=== PATIENT | female | born 1965 | race Caucasian/White ===

== ENCOUNTER 2019-09-08 08:42 | Outpatient (CLI) | payer OTHER, SELFPAY ==
--- NOTE | ~2019-09-08 | MM_ITS ---
EXAMINATION: MM screening carly BI w sofia HISTORY: Screening mammogram TECHNIQUE: Craniocaudal and mediolateral oblique 3-D tomosynthesis images were obtained and synthetic 2-D images were generated. CAD analysis was submitted and interpreted. COMPARISON: 05/30/2018 diagnostic right digital mammogram 05/29/2018, 04/24/2017 bilateral digital screening mammogram examinations BREAST PARENCHYMAL COMPOSITION: There are scattered areas of fibroglandular density. FINDINGS: There is a biopsy marker on the right and area of microcalcifications; history of prior millie ign right breast biopsy in 2019. There is no evidence of suspicious mass, calcification, or architectural distortion to suggest malig karis in either breast. There has been no suspicious interval change. IMPRESSION: 1. No mammographic evidence of malignancy. 2. Recommend routine screening mammography in one year. BI-RADS Category 2: Benign finding(s). Reviewed, dictated and finalized at location A.
== END 2019-09-08 08:43 | disposition home or self-care (01) ==
LOC: ANHIMG 08:53
PROVIDERS: PCP Nurse Practitioner Adult Health; Visit Provider Nurse Practitioner Adult Health
DX: Z12.31 Encounter for screening mammogram for malignant neoplasm of breast (principal)
CPT/HCPCS: 77063; 77067

== ENCOUNTER 2019-09-09 23:52 | Observation (INO) | payer OTHER, SELFPAY ==
--- NOTE | ~2019-09-09 | CT_ITS ---
EXAMINATION: CTA chest PE abdomen pel DATE: 09/10/2019 02:21 INDICATION: Chest and right flank pain TECHNIQUE: Computed tomography angiography (CTA) of the chest was performed with 100 mL Omnipaque-350 intravenous contrast timed to evaluate the pulmonary arteries. Subsequent postcontrast images of the abdomen and pelvis are obtained. Coronal maximum intensity projection 3D-reconstructions were create d by the technologist. The dose-length product (DLP) was 1045.17 mGy-cm. Automated exposure control a nd iterative reconstruction technique were employed. COMPARISON: None. FINDINGS: CTA CHEST: There is fair opacification of the pulmonary arteries. There are filling defects in subseg mental pulmonary arterial branches of the right lower lobe. Minimal airspace opacities are present in the posterior medial aspect of the right lower lobe. There is a 4 mm nodule of the right lower lobe on image 71. A trace right pleural effusion is noted. There is no pneumothorax. No pathologically enl arged thoracic lymph nodes are identified. The heart size is normal. There is mild thoracic spondylos is. ABDOMEN/PELVIS CT: The liver, spleen, pancreas, gallbladder, and adrenal glands are normal. There is a 10 mm cyst of the right kidney. The left kidney is normal. No pathologically enlarged abdominal or pelvic lymph nodes are identified. There is no free intraperitoneal gas or evidence of bowel obstruct ion. There is mild lumbar spondylosis. IMPRESSION: 1. Subsegmental pulmonary emboli in the right lower lobe. These findings were discussed with Dr. Marva May MD in the Emergency Department at 0 to 49 hours on 09/10/2019 by the [employer] Radiologist . 2. Minimal opacity in the posterior medial aspect of the right lower lobe which could reflect pulmona ry infarction versus atelectasis. 3. No acute abnormality of the abdomen or pelvis. Reviewed, dictated and finalized at location B. IMPRESSION: 1. Subsegmental pulmonary emboli in the right lower lobe. These findings were d iscussed with Dr. Kathy May MD in the Emergency Department at 0 to 49 h ours on 09/10/2019 by the [employer] Radiologist. 2. Minimal opacity in the posterior medial aspect of the right lower lobe which could reflect pulmonary infarction versus atelectasis. 3. No acute abnormality of the abdomen or pelvis.
--- NOTE | ~2019-09-09 | US_ITS ---
EXAMINATION: US venous doppler [facility] DATE: 09/10/2019 14:06 INDICATION: Bilateral lower limb pain, pulmonary embolism TECHNIQUE: Garcia scale images without and with compression and Doppler images of the bilateral lower e xtremity veins were obtained. COMPARISON: None FINDINGS: The right common femoral vein, profunda femoral vein, femoral vein, popliteal vein, peroneal trunk, p osterior tibial veins, and greater saphenous vein are patent. There is thrombosis of the superficial lesser saphenous vein. The left common femoral vein, profunda femoral vein, femoral vein, popliteal vein, peroneal trunk, po sterior tibial veins, and greater saphenous vein are patent. There is thrombosis of the superficial l shabana saphenous vein. IMPRESSION: 1. No evidence of deep venous thrombosis. 2. Bilateral superficial venous thrombosis of the lesser saphenous veins. Reviewed, dictated and finalized at location B.
[2019-09-10] VITALS (10 sets, daily range): BP systolic 113–135; BP diastolic 72–89; PULSE 70–100; RESP 16–18; TEMP 36.4–37.2; O2SAT 95–98; BMI 27.0
--- NOTE | 2019-09-10 | ECHO_ITS ---
Patient Info Name: Renetta Crowell Age: 53 years : 1965 Gender: Female Ht: 67 in Wt: 172 lbs BSA: 1.94 m2 HR: 73 bpm BP: 121 / 89 mmHg Heart Rhythm: Sinus Rhythm Technical Quality: Good Exam Date: 09/10/2019 10:49 AM Exam Location: [facility] Exam Room: 349 Patient Status: Inpatient Admit Date: 09/10/2019 Staff Ordering Physician: Dorcas Mock MD Showroom Salesperson: Katherin Collins RDCS Attending Provider: Aisha Kay DO Exam Type: CA echo doppler color flow Study Info Indications - PE Complete two-dimensional, color flow and Doppler transthoracic echocardiogram is performed. Summary 1. Left ventricular systolic function is normal, estimated at 60-65%. 2. There is no increased left ventricular wall thickness. 3. Left ventricular septal wall motion is abnormal with septal motion related to bundle branch block. 4. There is trace mitral valve regurgitation. 5. There is trace tricuspid valve regurgitation. 6. No pulmonary hypertension, estimated pulmonary arterial systolic pressure is 25 mmHg. Left Ventricle Left ventricular chamber dimension is normal. Left ventricular systolic function is normal, estimated at 60-65%. There is no increased left ventricular wall thickness. Left ventricular septal wall motion is abnormal with septal motion related to bundle branch block. Right Ventricle Right ventricular chamber dimension is normal. Right ventricular systolic function is normal. Left Atria Left atrial chamber dimension is normal. Right Atria Right atrial chamber dimension is normal. Aortic Valve The aortic valve is trileaflet. There is no aortic valve stenosis. There is no aortic valve regurgitation. Pulmonic Valve The pulmonic valve is normal. There is trace pulmonic regurgitation. Mitral Valve The mitral valve has normal leaflets. There is trace mitral valve regurgitation. Tricuspid Valve The tricuspid valve leaflets are normal. There is trace tricuspid valve regurgitation. No pulmonary hypertension, estimated pulmonary arterial systolic pressure is 25 mmHg. Pericardium/Pleural The pericardium appears normal. There is trivial pericardial effusion. Inferior Vena Cava Normal inferior vena cava with >50% collapse upon inspiration consistent with normal right atrial pressure, 5 mmHg. Aorta The aortic root size at the sinus of Valsalva is normal. Left Ventricular Outflow Tract Name Value Normal LVOT 2D LVOT Diameter 2.0 cm LVOT Doppler LVOT Peak Gradient 4 mmHg LVOT Mean Gradient 2 mmHg LVOT VTI 21 cm LVOT VTI/AV VTI Ratio 0.8 LVOT Stroke Volume 67 ml LVOT CO 14.4 l/min LVOT CI 7.4 l/min/m2 Pulmonic Valve Name Value Normal PV Doppler ------
--- NOTE | 2019-09-10 00:41 | ED.BACK ---
HPI - Back Pain/Injury General Chief Complaint: Back Pain/Injury Stated Complaint: right flank pain Time Seen by Provider: 09/10/19 00:22 Source: patient Mode of arrival: ambulatory Limitations: no limitations History of Present Illness HPI Narrative: This patient is a 53 year old female who presents for evaluation of right flank pain starting this afternoon. She is having pain to her right mid back and she states this pain intermittently rates to her right shoulder. She also notes this pain is worse sometimes when she takes a breath. She denies associated nausea, vomiting, cough or sob. She reports she had a fever of 100.2 F at 7 pm but she has not had a fever since. MD elicited complaint: back pain Related Data Home Medications Medication Instructions Recorded Confirmed Nutra Melitonin Sr 3 mg PO HS 09/10/19 09/10/19 Progesterone Triturate 100 mg PO QAM 09/10/19 09/10/19 escitalopram oxalate 10 mg PO HS 09/10/19 09/10/19 estradiol 0.75 mg PO DAILY 09/10/19 09/10/19 progesterone micronized 300 mg PO HS 09/10/19 09/10/19 testosterone 1 pump TOPICAL DAILY 09/10/19 09/10/19 thyroid (pork) [[place] Thyroid] 75 mg PO DAILY 09/10/19 Allergies Allergy/AdvReac Type Severity Reaction Status Date / Time penicillin G Allergy Unknown Verified 03/14/11 15:03 Penicillins Allergy Unknown Verified 06/24/17 14:06 NKFA Allergy Unknown Uncoded 05/08/13 07:24 Review of Systems Review of Systems: All systems reviewed & are unremarkable except as noted in HPI and below Constitutional: Constitutional: Denies chills and Denies fever(s) Respiratory: Respiratory: Denies cough and Denies dyspnea Gastrointestinal: Gastrointestinal: Denies abdominal pain, Denies nausea and Denies vomiting Genitourinary: Genitourinary: Reports nocturia, Denies dysuria and Reports flank pain Musculoskeletal: Musculoskeletal: Reports back pain PMF Past Medical History Medical History (Updated 09/10/19 @ 06:22 by Kathy May MD) Anxiety Vaginal delivery x 2 Surgical History Surgical History (Updated 05/27/19 @ 14:23 by Moriah Maldonado CMA) H/O LEEP Family History Family History (Updated 06/24/17 @ 14:07 by DOCTOR UNKNOWN) Grandparent Family history of malignant neoplasm Family history of Alzheimer's disease Cerebrovascular accident Father Carcinoma of colon Family history of diabetes mellitus in first degree relative Diabetes mellitus Family history of hypercholesterolemia Hypertension Sibling Diabetes mellitus Family history of cardiovascular disease Other Family history of lymphoma Family history of malignant neoplasm of male breast Family history of pancreatic cancer Social History Social History Smoking status: Former smoker Smoking end date: 02/12/12 Alcohol intake: current Exam Narrative: Exam Narrative: GENERAL: Well-appearing, well-nourished, and in no acute distress. HEAD: Normocephalic, atraumatic EYES: PERRLA and EOMI, conjunctiva clear without discharge EARS: TM's clear bilaterally without erythema or dullness NOSE: Nares clear, no rhinorrhea or epistaxis THROAT:Mucous membranes moist, Oropharynx normal without erythema, exudate, peritonsillar swelling or fluctuance NECK: Supple, without lymphadenopathy or mass RESPIRATORY: No respiratory distress, Airway patent, Respirations non-labored, Clear to auscultation without rales, rhonchi or wheeze HEART: Regular rate and rhythm. No murmur heard. Normal peripheral pulses. ABDOMEN: Soft, nontender, nondistended, normal active bowel sounds. No masses. No rebound or guarding, No organomegaly. EXTREMITIES: No edema, normal strength with full range of motion. SKIN: Warm, dry, normal color without rash NEURO: Alert and oriented x3. CN 2-12 grossly intact. No focal deficits. PSYCH: Normal mood and affect. Course Reevaluation(s) Reevaluation #1: I Discussed with patient findings of PE . She states Dr. Gracia has her on
[2019-09-10 00:48] LABS: Basophils Absolute Auto 0.1 K/mm3 (0.0-0.1); Basophils Percent Auto 0.5 % (0.2-1.2); Eosinophils Absolute Auto 0.1 K/mm3 (0-0.3); Eosinophils Percent Auto 0.8 % (0-4.4); Hematocrit 40.1 % (37.0-47.0); Hemoglobin 13.5 g/dL (12.0-15.0); Immature Granulocyte Absolute 0.02 K/mm3 (0.00-0.031); Immature Granulocyte Percent A 0.2 % (0-0.5); Lymphocytes Absolute Auto 1.03 K/mm3 (0.9-3.2); Lymphocytes Percent Auto 10.2 % (18.3-44.2); Mean Corpuscular HGB Conc 33.7 g/dl (32-36); Mean Corpuscular Hemoglobin 30.3 pg (26-34); Mean Corpuscular Volume 89.9 fl (80-100); Mean Platelet Volume 10.5 fl (7.4-10.4); Monocytes Percent Auto 9.8 % (2.6-8.5); Neutrophils Percent Auto 78.5 % (45.5-73.1); Platelet Count Result 255 k/mm3 (150-375); Red Blood Count 4.46 M/mm3 (4.2-5.4); Red Cell Distribution Width 12.1 % (11.5-14.5); White Blood Count 10.1 K/mm3 (4.5-10.0)
[2019-09-10 00:52] LABS: Bacteria Urine Trace /hpf; Mucus Urine Rare /lpf; Squamous Epithelial Cell Urine Moderate /hpf (Few); WBC Urine 51-75 /hpf
[2019-09-10 01:01] LABS: Alanine Aminotransferase 30 U/L (4-35); Albumin Level 4.5 g/dL (3.5-5.1); Alkaline Phosphatase 75 U/L (38-126); Anion Gap 14.2 mmol/L (7-16); Aspartate Amino Transferase 25 U/L (14-36); Bilirubin,Total 0.5 mg/dL (0.2-1.3); Blood Urea Nitrogen 32 mg/dL (7-17); Calcium 9.5 mg/dL (8.4-10.2); Carbon Dioxide 22 mmol/L (22-30); Chloride 102 mmol/L (98-107); Estimated CRCL calculation 57 ml/min; Estimated Glomerular Filt Rate 58; Glucose 122 mg/dL (65-105); Lipase 68 U/L (23-300); Potassium 4.2 mmol/L (3.4-5.0); Sodium 134 mmol/L (137-145)
[2019-09-10 01:09] LABS: Prothrombin Time 12.5 Seconds (11.1-14.7)
[2019-09-10 01:10] LABS: Partial Thromboplastin Time 29.2 SECONDS (22.3-36.8)
[2019-09-10 01:10] LABS: Appearance Urine Clear (Clear); Color Urine Yellow (Yellow); Leukocyte Esterase Ur 2+ LEU/UL (Negative); Nitrate Urine Negative (Negative)
[2019-09-10 01:11] LABS: Protein Urine Trace mg/dL (Negative); Urobilinogen Urine 0.2 mg/dL (<2.0)
[2019-09-10 01:12] LABS: Blood Urine Negative (Negative); Ketones Urine 1+ mg/dL (Negative)
[2019-09-10 01:13] LABS: Add Urine Microscopic? YES; Bilirubin Urine 1+ (Negative); Glucose Urine UA Negative (Negative)
[2019-09-10 01:13] LABS: D Dimer 1.18 ug/mL (<0.48)
[2019-09-10] MEDS: SODIUM CHLORIDE 0.9% IV 1,000 ML 999 ML IV CONT (01:28)
--- NOTE | 2019-09-10 03:01 | ECG_ITS ---
Measurements Intervals [place] Rate: 76 P: 32 NV: 171 QRS: -17 QRSD: 124 T: 64 QT: 402 QTc: 453 Interpretive Statements SINUS RHYTHM LEFT BUNDLE BRANCH BLOCK ABNORMAL ECG Electronically Signed On 09-10-2019 7:22:02 CDT by Austen Og D.O.
[2019-09-10] MEDS: ENOXAPARIN 80 MG/0.8 ML SYRINGE SUB-Q (03:20)
[2019-09-10 03:51] LABS: Basophils Percent Auto 0.4 % (0.2-1.2); Eosinophils Absolute Auto 0.1 K/mm3 (0-0.3); Eosinophils Percent Auto 0.6 % (0-4.4); Hematocrit 37.8 % (37.0-47.0); Hemoglobin 12.6 g/dL (12.0-15.0); Immature Granulocyte Absolute 0.03 K/mm3 (0.00-0.031); Immature Granulocyte Percent A 0.3 % (0-0.5); Lymphocytes Absolute Auto 1.02 K/mm3 (0.9-3.2); Lymphocytes Percent Auto 10.8 % (18.3-44.2); Mean Corpuscular HGB Conc 33.3 g/dl (32-36); Mean Corpuscular Hemoglobin 30.1 pg (26-34); Mean Corpuscular Volume 90.2 fl (80-100); Mean Platelet Volume 10.3 fl (7.4-10.4); Monocytes Absolute Auto 0.9 K/mm3 (0.1-0.6); Monocytes Percent Auto 9.8 % (2.6-8.5); Neutrophils Absolute Auto 7.4 K/mm3 (1.3-6.7); Neutrophils Percent Auto 78.1 % (45.5-73.1); Platelet Count Result 237 k/mm3 (150-375); Red Blood Count 4.19 M/mm3 (4.2-5.4); Red Cell Distribution Width 12.3 % (11.5-14.5); White Blood Count 9.5 K/mm3 (4.5-10.0)
[2019-09-10 04:03] LABS: Alanine Aminotransferase 25 U/L (4-35); Alkaline Phosphatase 68 U/L (38-126); Anion Gap 11.5 mmol/L (7-16); Aspartate Amino Transferase 22 U/L (14-36); Bilirubin,Total 0.5 mg/dL (0.2-1.3); Blood Urea Nitrogen 27 mg/dL (7-17); Calcium 8.7 mg/dL (8.4-10.2); Carbon Dioxide 22 mmol/L (22-30); Chloride 104 mmol/L (98-107); Estimated CRCL calculation 57 ml/min; Estimated Glomerular Filt Rate 58; Glucose 111 mg/dL (65-105); Potassium 4.5 mmol/L (3.4-5.0); Sodium 133 mmol/L (137-145)
--- NOTE | 2019-09-10 06:46 | ADMGEN ---
This patient, Renetta Crowell, was admitted to Medical Room 349-01. Patient/family oriented to hospital policies and general routines including ID bracelet, bed and alarms, visiting hours, pain management, procedures, bathroom and other care routines, personal items, smoking policy, room service/diet, and visiting hours. Valuables list has been completed. Information on how to activate the Rapid Response Team has been discussed. Patient/Family are encouraged to report perceived risks to care and to ask questions if they do not understand what they are told or what they should do.
[2019-09-10] MEDS: APIXABAN 5 MG TABLET 10 MG PO (09:15)
--- NOTE | 2019-09-10 14:55 | PM.SD ---
Same Day Admit/Disch: HPI History of Present Illness Chief complaint: Pulmonary emboli Narrative: Renetta Crowell is a 53 year old female Patient is on several hormone therapy for postmaunpose this will put her at high risk for pulmonary emboli and deep venous thrombosis. patient went on road trip to [place] on her bed back see does straight back from the [place] to [place], [place] patient presented emergency department with a complaint of right-sided chest pain with shortness of breath, CTA of the chest showed patient is a pulmonary emboli and patient was started on Eliquis from urgency department, currently patient states feeling better pain is also better, denies any chest pain shortness of breath palpitation fever or chills Patient will take Eliquis 10mg twice a day for 1 week thereafter 5mg twice a day. patient to follow up with her pimary care as soon as possible, if any symptoms get worsen to call 911 and go to nearest ER. Patient is on several hormone therapy for postmaunpose this will put her at high risk for pulmonary emboli and deep venous thrombosis. [facility] Past Medical History Medical History (Updated 09/10/19 @ 06:22 by Kathy May MD) Anxiety Vaginal delivery x 2 Surgical History Surgical History (Updated 09/17/19 @ 13:43 by Moriah Maldonado CMA) H/O LEEP [place] teeth removed Family History Family History (Updated 06/24/17 @ 14:07 by DOCTOR UNKNOWN) Grandparent Family history of malignant neoplasm Family history of Alzheimer's disease Cerebrovascular accident Father Carcinoma of colon Family history of diabetes mellitus in first degree relative Diabetes mellitus Family history of hypercholesterolemia Hypertension Sibling Diabetes mellitus Family history of cardiovascular disease Other Family history of lymphoma Family history of malignant neoplasm of male breast Family history of pancreatic cancer Social History Social History Smoking status: Former smoker Smoking end date: 02/12/12 Alcohol intake: never Substance use: never Gender identity (if verbalized by the patient): Female Spiritual care concerns: No Same Day Admit/Disch: Med Pre-admit Medications Home Medications Medication Instructions Recorded Confirmed Type Nutra Melitonin Sr 3 mg PO HS 09/10/19 09/10/19 History Progesterone Triturate 100 mg PO QAM 09/10/19 09/10/19 History apixaban 5 mg PO BID #60 tablet 09/10/19 Rx apixaban [Eliquis] 10 mg PO Q12HR #74 tablet 09/10/19 Rx escitalopram oxalate 10 mg PO HS 09/10/19 09/10/19 History estradiol 0.75 mg PO DAILY 09/10/19 09/10/19 History progesterone micronized 300 mg PO HS 09/10/19 09/10/19 History testosterone 1 pump TOPICAL DAILY 09/10/19 09/10/19 History Exam Const: General: comfortable and no acute distress HENMT: General nose exam: Normal nares present Mouth: Yes moist mucous membranes Eyes: General: appearance normal, both eyes and all related structures Sclera: sclerae normal Neck: Neck: supple Resp: Other: bilateral fair air entry with rhonchi Cardio: Rate: regular rate Rhythm: regular rhythm GI: Auscultation: normal bowel sounds Skin: General skin exam: normal color Neuro: Speech: normal speech Sensory Exam: normal sensation Extrem: Other: bilateral lower extremity no edema no cord fell Psych: Mental Status: mental status grossly normal Affect: normal affect DS: Data Data Completed and Pending Labs on day of discharge: Labs from last 24 hours 09/10/19 09/10/19 09/10/19 03:44 03:44 00:41 WBC 9.5 RBC 4.19 L Hgb 12.6 Hct 37.8 MCV 90.2 MCH 30.1 MCHC 33.3 RDW 12.3 Plt Count 237 MPV 10.3 Immature Gran % (Auto) 0.3 Neut % (Auto) 78.1 H Lymph % (Auto) 10.8 L [place] % (Auto) 9.8 H Eos % (Auto) 0.6 Baso % (Auto) 0.4 Lymph # (Auto) 1.02 [place] # (Auto) 0.9 H Eos # (Auto) 0.1 Baso # (Auto) 0.0 Abs Immat Gran (auto) 0.03 Abso
--- NOTE | 2019-09-10 18:54 | PC.NURSE ---
Copy of the ECHO was sent with the pt at discharge as per Dr. Mock.
== END 2019-09-10 18:55 | disposition home or self-care (01) ==
LOC: ANHED 09-10 03:31 → ANH3MED 09-10 06:22
PROVIDERS: Admitting Provider Internal Medicine; Emergency Provider General Practice; PCP Nurse Practitioner Adult Health; Visit Provider Family Medicine
DX: I26.99 Other pulmonary embolism without acute cor pulmonale (principal); I82.813 Embolism and thrombosis of superficial veins of lower extremities, bilateral; Z87.891 Personal history of nicotine dependence; Z79.899 Other long term (current) drug therapy; Z79.01 Long term (current) use of anticoagulants
CPT/HCPCS: 36415; 71275; 74177; 80053; 81001; 81025; 83690; 85025; 85380; 85610; 85730; 87086; 87088; 93005; 93306; 93970; 96361; 96365; 96372; 96376; 99285; A9270; G0378; J0131; J1650; J7030; Q9967

== ENCOUNTER 2019-11-23 13:47 | Outpatient (CLI) | payer OTHER, SELFPAY ==
--- NOTE | ~2019-11-23 | US_ITS ---
EXAMINATION: US venous doppler [facility] DATE: 11/23/2019 14:37 INDICATION: Acute deep vein thrombosis. TECHNIQUE: Grayscale ultrasound images without and with compression and Doppler ultrasound images of the bilateral lower extremity veins were obtained. COMPARISON: Ultrasound 09/10/2019 FINDINGS: The visualized portions of right common femoral vein, profunda (deep) femoral vein, femoral vein, pop liteal vein, peroneal veins, posterior tibial veins, and greater saphenous vein outflow are patent. T here is thrombus in right lesser saphenous vein. The visualized portions of left common femoral vein, profunda femoral vein, femoral vein, popliteal v ein, peroneal veins, posterior tibial veins, and greater saphenous vein outflow are patent. There is thrombus in left lesser saphenous vein. IMPRESSION: 1. No deep venous thrombosis. 2. Superficial vein thrombosis involving the bilateral lesser saphenous veins. Reviewed, dictated and finalized at location A.
== END 2019-11-23 13:48 | disposition home or self-care (01) ==
PROVIDERS: PCP Nurse Practitioner Adult Health; Visit Provider Internal Medicine Hematology & Oncology
DX: I82.4Y3 Acute embolism and thrombosis of unspecified deep veins of proximal lower extremity, bilateral (principal); I82.813 Embolism and thrombosis of superficial veins of lower extremities, bilateral
CPT/HCPCS: 93970

== ENCOUNTER 2019-12-07 14:20 | Outpatient (CLI) | payer OTHER, SELFPAY ==
[2019-12-09 16:40] LABS: Anti Cardio Antibody IgM <12 MPL (<=12); Anti Cardiolipin Antibody IgA <11 APL (<=11); Anti Cardiolipin Antibody IgG <14 GPL (<=14)
[2019-12-09 20:40] LABS: Antithrombin III Activity 71 % normal (80-135)
[2019-12-10 04:00] LABS: Lupus dRVVT 1:1 Mix Interpreta Not Indicated; Lupus dRVVT Screen 34 sec (<=45); PTT-LA Screen 31 sec (<=40)
[2019-12-10 13:02] LABS: Homocysteine 9.9 umol/L (<10.4)
== END 2019-12-07 14:21 | disposition home or self-care (01) ==
PROVIDERS: PCP Nurse Practitioner Adult Health; Visit Provider Internal Medicine Hematology & Oncology
DX: I82.4Y3 Acute embolism and thrombosis of unspecified deep veins of proximal lower extremity, bilateral (principal)
CPT/HCPCS: 36415; 83090; 85300; 85303; 85306; 85613; 85730; 86146; 86147

== ENCOUNTER 2020-03-07 15:06 | Outpatient (CLI) | payer OTHER, SELFPAY ==
[2020-03-09 17:33] LABS: APC Ratio 4.3 ratio (>=2.1)
[2020-03-10 05:09] LABS: Antithrombin III Activity 80 % normal (80-135)
== END 2020-03-07 15:07 | disposition home or self-care (01) ==
PROVIDERS: Family Provider Obstetrics & Gynecology; PCP Nurse Practitioner Adult Health; Visit Provider Internal Medicine Hematology & Oncology
DX: I82.4Y3 Acute embolism and thrombosis of unspecified deep veins of proximal lower extremity, bilateral (principal)
CPT/HCPCS: 36415; 85300; 85307

== ENCOUNTER → 2020-08-23 06:43 | Outpatient (CLI) | payer OTHER, SELFPAY ==
[2020-08-23 17:38] LABS: SARS-CoV-2 RNA PCR Negative
== END ==
PROVIDERS: PCP Nurse Practitioner Adult Health; Visit Provider Nurse Practitioner Adult Health
DX: R05 Cough (principal); Z20.822 Contact with and (suspected) exposure to COVID-19
CPT/HCPCS: C9803; U0003; U0005

== ENCOUNTER 2020-09-09 07:19 | Outpatient (CLI) | payer OTHER, SELFPAY ==
--- NOTE | ~2020-09-09 | MM_ITS ---
EXAMINATION: MM screening carly BI w sofia HISTORY: . TECHNIQUE: Craniocaudal and mediolateral oblique 3-D tomosynthesis images were obtained and synthetic 2-D images were generated. CAD analysis was submitted and interpreted. COMPARISON: 09/08/2019 bilateral digital screening mammogram 05/30/2018 diagnostic right digital mammogram /09/2018, 04/24/2017 bilateral digital screening mammogram examinations BREAST PARENCHYMAL COMPOSITION: There are scattered areas of fibroglandular density. FINDINGS: There is a biopsy marker in the outer mid right breast with some residual punctate microcal cifications; history of prior benign right breast biopsy. There is no evidence of suspicious mass, ca lcification, or architectural distortion to suggest malignancy in either breast. There has been no anderson spicious interval change. IMPRESSION: 1. No mammographic evidence of malignancy. 2. Recommend routine screening mammography in one year. BI-RADS Category 2: Benign finding(s). Reviewed, dictated and finalized at location A.
== END 2020-09-09 07:20 | disposition home or self-care (01) ==
LOC: ANHIMG 07:24
PROVIDERS: PCP Nurse Practitioner Adult Health; Visit Provider Obstetrics & Gynecology
DX: Z12.31 Encounter for screening mammogram for malignant neoplasm of breast (principal)
CPT/HCPCS: 77063; 77067

== ENCOUNTER 2020-12-13 08:00 | Outpatient (RCR) | payer OTHER, SELFPAY ==
--- NOTE | 2020-11-01 14:55 | PTOPEVAL ---
INITIAL PHYSICAL THERAPY EVALUATION and PLAN OF CARE Thank you for referring Renetta Crowell to [facility].? Renetta is scheduled to be seen for physical therapy? once every 2 wks for 4 weeks. Please review, sign, date and return this plan of care NICOLE. I agree with and certify that the following plan of care is medically necessary. Referring Physician Date Admitting Provider: Attending Provider: Trip Hernandez MD Referring Provider: *PT Outpatient Evaluation Start: 11/01/20 13:38 Freq: Status: Active Protocol: Document 11/01/20 13:35 CORETTA (Rec: 11/01/20 14:55 CORETTA [id number]) Therapy Assessment Status Assessment Status Assessment Status Evaluation Outpatient Past Medical History Past Medical History Source of Past Medical History Recalled from Previous Visit, Confirmed with Patient/Family Neurological History Hx Migraine Yes: decreasing in frequency Cardiovascular History Hx Cardiac Disorders No Significant History Respiratory History Hx Respiratory Disorders No Significant History Gastrointestinal History Hx Diverticulitis Yes Hx Polyps Yes Genitourinary History Hx Genitourinary Disorders No Significant History Musculoskeletal History Hx Arthritis Yes Hx Osteoporosis Yes Endocrine History Hx Hypothyroidism Yes Integumentary History Hx Skin Disorders No Significant History Reproductive History Hx Other Reproductive Disorders Yes: Leep x2 Psychosocial History Hx Anxiety Yes Pain History Has Past Pain Affected Your Daily Life Yes Anesthesia History Hx Anesthesia Reactions No Significant History Evaluation Information Problem Diagnosis cystocele, rectocele Onset May 2020 Subjective Information Renetta reports that she was Query Text:As Reported By Patient/ taking fiber pills, probiotics Family , etc - did have some blood in stools - did back off on - but still did have blood in stool - saw [facility]ER and then GI MD . [employer] FEEDER had told her that her bladder had dropped - in the past - to do Kegels. Recent [employer]T [employer] FEEDER visit - Renetta was advised to come to PT to make sure doing exercises correctly. Not feeling any pressure at this time. With BM - was getting cramping - L lower back region, gas retension - but not now. Diagnostic Te
--- NOTE | 2020-12-13 08:47 | PTOPEVAL ---
PHYSICAL THERAPY DISCHARGE SUMMARY Thank you for referring Renetta Crowell to [facility].? Renetta was seen for 3 visits. She has met all goals set. She is to continue with her HEP on a regular basis. D/C from PT to HEP. I agree with Renetta's discharge from PT. Referring Physician Date Admitting Provider: Attending Provider: Trip Hernandez MD Referring Provider: Therapy Assessment Status Assessment Status Assessment Status Discharge Evaluation Information Problem Diagnosis cystocele, rectocele Subjective Information Renetta reports that she is Query Text:As Reported By Patient/ doing well with exercises. No Family difficulties with urination or defecation. No increase with perineal discomfort. Pain Assessment Timing of Pain Assessment Timing of Pain Assessment Assessment Self Report Self Report Pain Level 0 Pelvic Health Evaluation Pelvic Floor Assessment Sustained Levator Ani Strength 4/5 Quick Levator Ani Contraction in 15 9 Seconds Pelvic Health Therapy Pelvic Health Exercise Isolated Levator Ani Contraction sitting 65 [place] ball 10 ct Query Text:Position, Hold/Relaxation hold/relax 5 reps Time, Repetitions Quick Contractions on [place] ball testing - 9 reps Query Text:Position, Repetitions Therapeutic Ball side/side, front/back, CW/CCW Query Text:Movement Direction, 15 reps ea Repetitions Sit to Stand 6 quick contractions prior to Query Text:Deep Breaths, Quick standing - reviewed Contractions, Repetitions Elevator Techniques [address] hold x5;3 fls Query Text:Repetitions, Number of going down x 5;variable x 5 Steps Going Up, Number of Steps Going reps on ball Down Resistive 'Shh' Technique long, soft x 5 reps;quick, Query Text:Quick, Hard, Long, Soft, hard x 5 reps - done on [place] Number of Repetitions ball Response to Exercise Increased Strength Endurance Excellent Exercise Comments reviewed importance of continuing with HEP on a regular basis to perform pelvic floor contraction prior to lifting, pushing, pulling, etc Rehab Teaching Rehab Teaching Teaching Topic Rehab Teaching Topic Components Exercise,Home Program As Pertains To Technique Recipient Patient Learning Preferences Audio,Demonstration,Discussion ,One-on-One Instruction,Visual ,Written Barriers to Learning None Readiness to Learn
== END 2020-12-13 15:40 | disposition home or self-care (01) ==
LOC: ANHPT 08:00
PROVIDERS: PCP Nurse Practitioner Adult Health; Visit Provider Obstetrics & Gynecology
DX: N81.10 Cystocele, unspecified (principal); N81.6 Rectocele
CPT/HCPCS: 97110; 97161

== ENCOUNTER 2021-01-30 12:36 | Outpatient (CLI) | payer OTHER, SELFPAY ==
--- NOTE | ~2021-01-30 | US_ITS ---
EXAMINATION: US pelvic complete w TV DATE: 01/30/2021 13:22 INDICATION: Uterine fibroids Comparison:Ultrasound dated 11/08/2017 TECHNIQUE: Multiple transabdominal and endovaginal sonographic images of the pelvis performed. FINDINGS: The uterus measures 7.7 x 3.2 x 4.1 cm. There is a uterine fibroid measuring 1.1 x 1.1 x 1. 3 cm cm. The endometrial complex measures 3 mm. The right ovary measures 1.8 x 1.5 x 1 cm and the left ovary measures 1.8 x 1.1 x 1.2 cm. There are small follicles in each ovary. Normal doppler signal in both ovaries. There is no free fluid in the pelvis. There are no abnormal masses seen on either side. IMPRESSION: 1. Uterine fibroid measuring 1.3 cm maximum dimension. Reviewed, dictated and finalized at location A. ADVISOR
== END 2021-01-30 12:37 | disposition home or self-care (01) ==
LOC: ANHIMG 12:40
PROVIDERS: PCP Nurse Practitioner Adult Health; Visit Provider Obstetrics & Gynecology Gynecology
DX: D25.9 Leiomyoma of uterus, unspecified (principal); N95.9 Unspecified menopausal and perimenopausal disorder
CPT/HCPCS: 76830; 76856

== ENCOUNTER 2021-10-25 08:12 | Outpatient (CLI) | payer OTHER, SELFPAY ==
--- NOTE | ~2021-10-25 | MM_ITS ---
EXAMINATION: MM screening carly BI w sofia HISTORY: Screening mammogram TECHNIQUE: Craniocaudal and mediolateral oblique 3-D tomosynthesis images were obtained and synthetic 2-D images were generated. CAD analysis was submitted and interpreted. COMPARISON: 09/09/2020, 09/08/2019 bilateral screening mammogram examination BREAST PARENCHYMAL COMPOSITION: There are scattered areas of fibroglandular density. FINDINGS: There is a biopsy marker in the outer mid right breast, with some adjacent punctate microca lcifications, relatively stable in appearance since 09/09/2020; history of prior benign right breast b iopsy. There is no evidence of suspicious mass, calcification, or architectural distortion to suggest malignancy in either breast. There has been no suspicious interval change. IMPRESSION: 1. No mammographic evidence of malignancy. 2. Recommend routine screening mammography in one year. BI-RADS Category 2: Benign finding(s). Reviewed, dictated and finalized at location A.
== END 2021-10-25 08:13 | disposition home or self-care (01) ==
PROVIDERS: PCP Nurse Practitioner Adult Health; Referring Provider Obstetrics & Gynecology; Visit Provider Nurse Practitioner Adult Health
DX: Z12.31 Encounter for screening mammogram for malignant neoplasm of breast (principal)
CPT/HCPCS: 77063; 77067

== ENCOUNTER 2021-12-12 15:08 | Outpatient (CLI) | payer OTHER, SELFPAY ==
--- NOTE | ~2021-12-12 | DEXA_ITS ---
Bone Density Report Name: JESSI TURNER Age: 56 Sex: Female Ethnicity: White Date of : 1965 Indication: postmenopausal; screening for osteoporosis; parental hip fracture; height loss; inflammatory bowel disease; Referring Provider: JEFERSON SANTIZO Study: Bone densitometry was performed. Exam Date: December 12, 2021 Accession number: [id number] Bone Density: Region BMD T-score Z-score Classification AP Spine(L1-L4) 0.855 -1.7 -0.7 Osteopenia Femoral Neck (Left) 0.696 -1.4 -0.3 Osteopenia Total Hip (Left) 0.863 -0.6 0.0 Normal Femoral Neck (Right) 0.705 -1.3 -0.2 Osteopenia Total Hip (Right) 0.902 -0.3 0.4 Normal Total Hip Mean 0.883 -0.5 0.2 Normal World Health Organization criteria for BMD impression classify patients as: Normal (T-score at or above -1.0), Osteopenia (T-score between -1.0 and -2.5), or Osteoporosis (T-score at or below -2.5). 10-year Fracture Risk(1): Major Osteoporotic Fracture 13% Hip Fracture 0.5% Reported Risk Factors: [place] (), Neck BMD=0.696, BMI=29.2, parental fracture (1) FRAX(R) Version 3.08. Fracture probability calculated for an untreated patient. Fracture probability may be lower if the patient has received treatment. Clinical Information Provided by Patient: Parent has had a hip fracture Has used the following medications: HRT (i.e. estrogen/hormone therapy), Vitamin D, Calcium Has the following medical conditions: Inflammatory bowel diseases Patient maximum height was 68 Menopause Age: 50 No regular weight bearing exercise Does not regularly consume dairy products Drinks caffeinated beverages Onset of menses at age 12 Number of children 2 Impression: The patient has low bone mass, based on the Total Spine T-score. The patient has an estimated ten-year risk of hip fracture of 0.5% and an estimated ten-year risk of major fracture of 13%, based on the WHO FRAX algorithm. The patient has risk factors, including: parental hip fracture. Discussion: BONE DENSITY IS LOW AT ONE OR MORE SKELETAL SITES. This patient's lowest T-score is low at one or more skeletal sites. It meets the World Health Organization's (WHO) criteria for ?low bone mass? (T-score between -1.0 and -2.5). The patient's 10-year risk of fracture as calculated by FRAX is less than the threshold where pharmacological therapy is recommended by the National Osteoporosis Foundation (NOF). However, all treatment decisions require clinical judgment and consideration of individual patient factors, including patient preferences, comorbidities, previous drug use, risk factors not captured in the FRAX model (e.g., frailty, falls, vitamin D deficiency, increased bone turnover, interval significant decline in bone density) and possible under or overestimation of fracture risk by FRAX
== END 2021-12-12 15:09 | disposition home or self-care (01) ==
PROVIDERS: PCP Nurse Practitioner Adult Health; Visit Provider Obstetrics & Gynecology
DX: Z78.0 Asymptomatic menopausal state (principal); M85.88 Other specified disorders of bone density and structure, other site; M85.852 Other specified disorders of bone density and structure, left thigh; M85.851 Other specified disorders of bone density and structure, right thigh
CPT/HCPCS: 77080

== ENCOUNTER 2022-10-21 16:36 | Emergency (ER) | payer OTHER, SELFPAY ==
[2022-10-21 17:13] VITALS: BP 123/70; PULSE 71; RESP 16; TEMP 37.1; O2SAT 99
--- NOTE | 2022-10-21 18:28 | ED.SKABFB ---
HPI - Skin/Abscess/Foreign Bdy General Chief complaint: Skin/Abscess/Foreign Body Stated complaint: Neck and Chest Rash Time Seen by Provider: 10/21/22 18:20 Source: patient and RN notes reviewed Mode of arrival: ambulatory Limitations: no limitations History of Present Illness HPI narrative: Patient presents today with a rash to her chest and bilateral shoulders. She had a CT a pill or fall from a tree onto her neck and rolling to her shirt on to her chest yesterday. This has since caused a severely pruritic rash. She has tried topical and oral Benadryl as well as ice packs without much relief. She also tried a steroid cream at home. Related Data Home Medications Medication Instructions Recorded Confirmed Progesterone Triturate 100 mg PO QAM 09/10/19 11/20/21 escitalopram oxalate 10 mg tablet 10 mg PO HS 09/10/19 11/20/21 progesterone micronized 100 mg 300 mg PO HS 09/10/19 11/20/21 capsule testosterone 30 mg/actuation (1.5 1 pump topical DAILY 09/10/19 11/20/21 mL) transderm solution metered pump aspirin 81 mg tablet,delayed 81 mg PO DAILY 09/27/20 11/20/21 release thyroid (pork) 30 mg tablet (MANAGER TECHNICAL SUPPORT 30 mg PO DAILY 09/27/20 11/20/21 Thyroid) calcium carbonate 600 mg-vitamin cap PO 10/05/20 11/20/21 D3 12.5 mcg (500 unit) capsule (Calcium 600 with Vitamin D3) garlic 1,000 mg capsule 1,000 mg PO DAILY 10/05/20 11/20/21 lisinopril 2.5 mg tablet mg 10/21/22 metoprolol succinate 25 mg mg PO 10/21/22 tablet,extended release 24 hr rosuvastatin 20 mg tablet mg 10/21/22 Allergies Allergy/AdvReac Type Severity Reaction Status Date / Time Penicillins Allergy Intermediate Unknown Verified 10/21/22 18:01 Review of Systems Review of Systems: CONSTITUTIONAL: Denies body aches, fever, chills, or sweats. EYES: Denies visual changes, redness, or discharge. ENT: Denies rhinorrhea, congestion, sore throat, or otalgia. CARDIOVASCULAR: Denies chest pain, palpitations, or edema. RESPIRATORY: Denies cough or dyspnea. GASTROINTESTINAL: Denies abdominal pain, nausea, vomiting, or diarrhea. GENITOURINARY: Denies dysuria or hematuria. SKIN: + pruritic rash MUSCULOSKELETAL: Denies back pain, joint pain, or myalgia. NEUROLOGIC: Denies headache, numbness, tingling, or weakness. PSYCH: Denies depression or anxiety. PMFSH Past Medical History Medical History Anxiety History of pulmonary embolism Vaginal delivery x 2 Surgical History Surgical History H/O LEEP [place] teeth removed Family History Family History Grandparent Family history of malignant neoplasm Family history of Alzheimer's disease Cerebrovascular accident Father Carcinoma of colon Family history of diabetes mellitus in first degree relative Diabetes mellitus Family history of hypercholesterolemia Hypertension Sibling Diabetes mellitus Family history of cardiovascular disease Other Family history of lymphoma Family history of malignant neoplasm of male breast Family history of pancreatic cancer Social History Social History Smoking status: Former smoker Smoking end date: 02/12/12 Alcohol intake: never Substance use: never Gender identity (if verbalized by the patient): Female Spiritual care concerns: No Comments At time of signature, I have reviewed and agree with nursing past medical, surgical, social and family history unless otherwise noted. Please see nursing chart for further information. There is no relevant family history pertinent to the presenting complaint Exam Narrative: GENERAL: Well-appearing, well-nourished, and in no acute distress. HEAD: Normocephalic, atraumatic. EYES: EOMI. No redness or drainage. Conjunctivae normal. ENT: Mucous membranes pin
== END 2022-10-21 18:36 | disposition home or self-care (01) ==
PROVIDERS: Emergency Provider Nurse Practitioner; PCP Internal Medicine
DX: L24.89 Irritant contact dermatitis due to other agents (principal); F41.9 Anxiety disorder, unspecified
CPT/HCPCS: 99213; G0463

== ENCOUNTER 2022-10-26 13:11 | Outpatient (CLI) | payer OTHER, SELFPAY ==
--- NOTE | ~2022-10-26 | MM_ITS ---
EXAMINATION: MM screening carly BI w sofia HISTORY: Screening mammogram TECHNIQUE: Craniocaudal and mediolateral oblique 3-D tomosynthesis images were obtained and synthetic 2-D images were generated. CAD analysis was submitted and interpreted. COMPARISON: 10/25/2021, 09/09/2020, 09/08/2019 bilateral screening mammogram examinations BREAST PARENCHYMAL COMPOSITION: There are scattered areas of fibroglandular density. FINDINGS: Biopsy marker on the right with adjacent subtle punctate microcalcifications.; history of p rior benign right breast biopsy. There is no evidence of suspicious mass, calcification, or net application architect ural distortion to suggest malignancy in either breast. There has been no suspicious interval change. IMPRESSION: 1. No mammographic evidence of malignancy. 2. Recommend routine screening mammography in one year. BI-RADS Category 2: Benign finding(s). Reviewed, dictated and finalized at location A.
== END 2022-10-26 13:12 | disposition home or self-care (01) ==
LOC: CHSIMG 13:12
PROVIDERS: PCP Internal Medicine; Visit Provider Obstetrics & Gynecology
DX: Z12.31 Encounter for screening mammogram for malignant neoplasm of breast (principal)
CPT/HCPCS: 77063; 77067

== ENCOUNTER 2023-11-08 14:34 | Outpatient (CLI) | payer OTHER, SELFPAY ==
--- NOTE | ~2023-11-08 | MM_ITS ---
EXAMINATION: MM screening carly BI w sofia HISTORY: Screening TECHNIQUE: Craniocaudal and mediolateral oblique 3-D tomosynthesis images were obtained and synthetic 2-D images were generated. CAD analysis was submitted and interpreted. COMPARISON: Comparison to multiple prior studies sequentially, with oldest reviewed study dated 09/2018. BREAST PARENCHYMAL COMPOSITION: Not dense: There are scattered areas of fibroglandular density. FINDINGS: There is no evidence of suspicious mass, calcification, or architectural distortion to sugg est malignancy in either breast. There has been no suspicious interval change. IMPRESSION: 1. No mammographic evidence of malignancy. 2. Recommend routine screening mammography in one year. BI-RADS Category 1: Negative Reviewed, dictated and finalized at location B.
== END 2023-11-08 14:35 | disposition home or self-care (01) ==
LOC: ANHIMG 14:57
PROVIDERS: PCP Internal Medicine; Referring Provider Obstetrics & Gynecology Gynecology; Visit Provider Obstetrics & Gynecology
DX: Z12.31 Encounter for screening mammogram for malignant neoplasm of breast (principal)
CPT/HCPCS: 77063; 77067

== ENCOUNTER 2024-01-16 13:09 | Outpatient (CLI) | payer OTHER, SELFPAY | END 2024-01-16 13:10 | disposition home or self-care (01) | LOC: CHSIMG 13:10 | PROVIDERS: PCP Internal Medicine; Visit Provider Nurse Practitioner Obstetrics & Gynecology | DX: Z78.0 Asymptomatic menopausal state (principal); M85.89 Other specified disorders of bone density and structure, multiple sites | CPT/HCPCS: 77080 ==

== ENCOUNTER 2024-11-09 12:58 | Outpatient (CLI) | payer OTHER, SELFPAY ==
--- NOTE | ~2024-11-09 | MM_ITS ---
EXAMINATION: MM screening [facility] BI w sofia HISTORY: Screening TECHNIQUE: Craniocaudal and mediolateral oblique 3-D tomosynthesis images were obtained and synthetic 2-D images were generated. CAD analysis was submitted and interpreted. COMPARISON: 05/30/2018 BREAST PARENCHYMAL COMPOSITION: Not dense: There are scattered areas of fibroglandular density. FINDINGS: There is no evidence of suspicious mass, calcification, or architectural distortion to suggest malignancy in either breast. There has been no suspicious interval change. IMPRESSION: 1. No mammographic evidence of malignancy. 2. Recommend routine screening mammography in one year. BI-RADS Category 1: Negative Reviewed, dictated and finalized at location B.
--- OUTSIDE RECORDS SUMMARY | 2024-11-09 13:12 | XMS_ITS | Encounter Summary ---
Author Organization [facility] Address [address] [place] [address] Care Team Providers Care Bone Puller Name Role Phone Unavailable Primary Care Provider Unavailabl e Encounter Details Date Type Department Care Team (Late st Contact Info) Description 03/17/2024 Lab Requisition [facility] - DermPath Lab [address] [place] [address] Luís Poon MD [facility] DERMATOLOGY [address] [place] [phone] Neoplasm of uncertain behavior of skin Social History Tobacco Use Types Packs/Day Years Used Date Smoking Tobacco: Never Assessed Comments Unknown Sex and Gender Information Value Date Recorded Sex Assigned at Not on file Legal Sex Female 3:26 PM 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 Gender Identity Not on file Sexual Orientation Not on file documented as of this encounter Plan of Treatment Not on file documented as of this encounter Procedures Procedure Name Priority Date/Time Associated Diagnosis Comments DERMATOPATHOLOGY Routine 03/17/2024 9:01 AM 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 Neoplasm of uncertain behavior of skin documented in this encounter Results * DERMATOPATHOLOGY (03/17/2024 9:01 AM 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) Case Report Dermatopathology Report Case: [id number] Authorizing Provider: Luís Poon MD Collected: 03/17/2024 09:01 AM Ordering Location: [facility] - Received: 03/19/2024 02:00 PM DermPath Lab Pathologist: Jessica Lopez MD Specimen: Skin, right shoulder 2:18 PM 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 DERMATOPATHOLOGY LABORATORY Final Diagnosis Specimen A. SKIN, right shoulder: SEBORRHEIC KERATOSIS, IRRITATED AND INFLAMED (L82.0) 2:18 PM [facility] DERMATOPATHOLOGY LABORATORY at [address] 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 Clinical History BCC vs Irritated Seborrheic Keratosis 2:18 PM [facility] DERMATOPATHOLOGY LABORATORY Gross Description Specimen A: Received is one formalin filled container labeled with the patient's name and designated right shoulder. The specimen consists of a shave biopsy measuring 8x7x2 mm. Jar 0. 2:18 PM [facility] DERMATOPATHOLOGY LABORATORY Microscopic Description Specimen A. SKIN, right shoulder: Sections show acanthosis, papillomatosis, hyperkeratosis, and squamous eddies. There is a lymphohistiocytic infiltrate within the papillary dermis. 2:18 PM [facility] DERMATOPATHOLOGY LABORATORY Disclaimer An external and internal positive and negative controls are appropriate for the histochemical, immunohistochemical and immunofluorescence stain(s) in this case (if any), except where stated explicitly. The performance characteristics of the stain(s) cited in this report were developed and its performance characteristic determined by the Dermatopathology Laboratory at [facility], directed by Dr. Hortencia Robles. These tests need not be, and therefore are not, approved by the [place] Food and Drug Administration. The tests are used for clinical purposes. Billing Codes Specimen Charges Stain Charges 97447 1 2:18 PM [facility] DERMATOPATHOLOGY LABORATORY Embedded Images 2:18 PM [facility] DERMATOPATHOLOGY LABORATORY Pathology/Cytolo gy TISSUE SPECIMEN FROM SKIN / Unknown 03/17/2024 9:01 AM 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 03/19/2024 2:00 PM 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 us Luís Poon MD LAB - PATHOLOGY/CYTOLOGY JONI GÓMEZ Final Result DERMATOPATHOLOGY LABORATORY [facility] - Department of Dermatology [address], [address] [phone] documented in this encounter Visit Diagnoses Diagnosis Neoplasm of uncertain behavior of skin documented in this encounter
--- OUTSIDE RECORDS SUMMARY | 2024-11-09 13:12 | XMS_ITS | Clinical Summary ---
Author Organization [facility] Tayla Quinonez Address [address] [place] [address] Care Team Providers Care Finisher Special Stocks Name Role Phone Juan Antoniojeremías Betty REBEKAH Primary Care Provider [phone] Allergies Active Allergy Reactions Criticality Noted Date Comments Penicillins Hives High 09/21/2019 Medications testosterone (ANDROGEL) 1 % (50 mg/5 gram) Gel in Packet Apply 50 mg to skin as directed. Active progesterone micronized (PROMETRIUM) 100 mg Capsule Take 100 mg by mouth. Active magnesium citrate 125 mg Capsule Take 250 mg by mouth. Active garlic 1,000 mg Capsule Take 2,000 mg by mouth. Active cyanocobalamin 1,000 mcg Tablet Take 1,000 mcg by mouth. Active cholecalciferol, Vitamin D3, (VITAMIN D3) 25 mcg (1,000 unit) Capsule Take 1,000 Units by mouth. Active calcium citrate 250 mg calcium Tablet Take 600 mg by mouth. Active thyroid, pork, (ARMOUR THYROID) 120 mg tablet Take by mouth. Active escitalopram oxalate (LEXAPRO) 10 mg tablet Take 10 mg by mouth daily. Active apixaban (ELIQUIS) 5 mg tabletIndication s:Acute pulmonary embolism without acute cor pulmonale, unspecified pulmonary embolism type (CMS/HCC),Acute deep vein thrombosis (DVT) of proximal vein of both lower extremities Take 1 Tablet (5 mg) by mouth 2 times daily. 60 Tablet 3 09/21/2019 Active Active Problems Problem Noted Date Diagnosed Date Acute pulmonary embolism 09/21/2019 Family History Medical History Relation Name Comments Cancer Father Diabetes Father Heart Disease Father Diabetes Sister 1 Cancer Sister 2 Heart Disease Sister 3 Relation Name Status Comments Father Mother Alive Sister 1 Alive Sister 2 Alive SKIN CANCER OF THE SCALP Sister 3 Alive Son 1 Alive Son 2 Alive Social History Tobacco Use Types Packs/Day Years Used Date Smoking Tobacco: Former Cigarettes 0.5 20 0 03/23/1993 - 03/23/2013 Smokeless Tobacco: Never Tobacco Cessation:Counseling Given: No Alcohol Use Standard Drinks/Week Comments Yes 0 (1 standard drink = 0.6 oz pur e alcohol) OCCASSIONLLY Comments No Sex and Gender Information Value Date Recorded Sex Assigned at Not on file Legal Sex Female 9:07 AM CDT Gender Identity Not on file Sexual Orientation Not on file Last Filed Vital Signs Vital Sign Reading Time Taken Comments Blood Pressure 113/78 11/30/2019 1:15 PM CDT Pulse 79 11/30/2019 1:15 PM CDT Temperature 36.8 C (98.3 F) 11/30/2019 1:15 PM CDT Respiratory Rate - - Oxygen Saturation 97% 11/30/2019 1:15 PM CDT Inhaled Oxygen Concentration - - Weight 80.1 kg (176 lb 9.6 oz) 11/30/2019 1:15 P M CDT Height 170.2 cm (5' 7) 11/30/2019 1:15 PM CDT Body Mass Index 27.66 11/30/2019 1:15 PM CDT Plan of Treatment Health Maintenance Due Date Last Done Comments DTAP/TDAP/TD VACCINES (1 - Tdap) 1985 HEPATITIS B VACCINES (1 of 3 - 19+ 3-dose series) 10/1985 HPV/Cotest (21-29) 10/21/1987 CERVICAL CANCER SCREENING 1996 HPV/Cotest (30-65) 1996 PAP SMEAR 1996 BREAST CANCER SCREENING 2006 COLORECTAL SCREENING 10/21/2011 Colorectal Cancer Screening 10/21/2011 FIT-DNA Q 3 years 10/21/2011 FIT/FOBT Q 1 year 10/21/2011 Flex Sig/CT Colonography Q 5 years 10/21/2011 ZOSTER VACCINE (1 of 2) 2016 INFLUENZA VACCINE (#1) 2024 Care Teams Finisher Special Stocks Relationship Specialty Start Date End Date Betty Jauregui ANP [address] [address] PCP - General Nurse Practitioner Adult Health 09/16/19
--- OUTSIDE RECORDS SUMMARY | 2024-11-09 13:12 | XMS_ITS | Clinical Summary ---
Author Organization [facility] Address [address] [place] [address] Care Team Providers Care Ornament Stitcher Name Role Phone Unavailable Primary Care Provider Unavailabl e Source Comments [facility],non-owned Affiliates and Associated Physician Practices is amultiple site organization consisting of ambulatory clinics and hospital sitesin [place], [place], [place] and [place]. This disclosure is being madepursuant to the Care Everywhere program and may not contain all information available regarding this patient. 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 Gender Identity Not on file Sexual Orientation Not on file Plan of Treatment Health Maintenance Due Date Last Done Comments COLOGUARD (AGES 45-75) - COL ON CA SCREENING 1966 COLON MONITORING 1966 COLONOSCOPY - COLON CA SCREENING 1966 CT COLONOGRAPHY - COLON CA SCREENING 1966 Colorectal Cancer Screening 1966 FIT - COLON CA SCREENING 1966 FLEX SIG - COLON CA SCREENING 1966 LIPID TESTING 1966 MAMMOGRAM 1966 HIV SCREENING 1981 HEPATITIS C SCREENING 10/15/1984 DTAP/TDAP/TD VACCINES (1 - Tdap) 1985 HEPATITIS B VACCINE (1 of 3 - 19+ 3-dose series) 1985 PAP SMEAR 10/21/1987 PNEUMOCOCCAL VACCINE 50+ (1 of 1 - PCV) 2016 ZOSTER VACCINE (1 of 2) 2016 DEPRESSION SCREENING 02/12/2024 COVID-19 VACCINE (1 - 2023-2 5 season) 2024 INFLUENZA VACCINE (#1) 2024 HIB VACCINE Aged Out No longer eligi ble based on patient's age to complete this topic HPV VACCINE Aged Out No longer eligi ble based on patient's age to complete this topic MENINGOCOCCAL (Group B) VACC INE SHARED DECISION-MAKING Aged Out No longer eligibl e based on patient's age to complete this topic MENINGOCOCCAL GROUPS A/C/Y/W VACCINE Aged Out No longer eligible b ased on patient's age to complete this topic Insurance [employer]
== END 2024-11-09 12:59 | disposition home or self-care (01) ==
LOC: CHSIMG 13:01
PROVIDERS: PCP Internal Medicine; Visit Provider Nurse Practitioner Obstetrics & Gynecology
DX: Z12.31 Encounter for screening mammogram for malignant neoplasm of breast (principal)
CPT/HCPCS: 77063; 77067

== ENCOUNTER 2024-11-28 09:27 | Emergency (ER) | payer OTHER, SELFPAY ==
--- NOTE | ~2024-11-28 | CT_ITS ---
EXAMINATION: CT abdomen pelvis w con DATE: 11/28/2024 11:26 INDICATION: Constipation. TECHNIQUE: Computed tomography (CT) of the abdomen and pelvis was performed with 100 mL Omnipaque 350 intravenous contrast. Automated exposure control and iterative reconstruction technique were employed. The dose-length product was 488.87 mGy-cm. COMPARISON: CT abdomen and pelvis 09/10/2019 FINDINGS: The visualized portions of the lung bases demonstrate mild atelectasis. No pleural effusion. The heart size is normal. No pericardial effusion. The liver, gallbladder, spleen, pancreas, and right adrenal gland are normal. There is a 1.6 cm mass in left adrenal gland without change, likely an adenoma. Left kidney is normal. There is a 2.1 cm cyst in right kidney. There is diverticulosis of the colon without evidence of diverticulitis. There is wall thickening of the rectosigmoid. The appendix is normal. There are no pathologically enlarged lymph nodes. There is no free intraperitoneal fluid. There is mild thoracic and lumbar spondylosis. IMPRESSION: 1. Wall thickening of the rectosigmoid, consistent with colitis. Reviewed, dictated and finalized at location E.
--- OUTSIDE RECORDS SUMMARY | 2024-11-28 09:29 | XMS_ITS | Encounter Summary ---
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 Social History Tobacco Use Types Packs/Day Years Used Date Smoking Tobacco: Former Cigarettes 1 25 0 03/14/1988 - 03/14/2013 Smokeless Tobacco: Never Comments:Counseled by Dr Zhanna herrera Alcohol Use Standard Drinks/Week Comments Yes 1 (1 standard drink = 0.6 oz pur e alcohol) occ beer PHQ-2 Answer Date Recorded Patient Health Questionnaire-2 Score 0 05/23/2022 Comments No Sex and Gender Information Value Date Recorded Sex Assigned at Female 05/15/2024 8:10 AM CDT Legal Sex Female 9:37 AM PHOTO SPECIALIST Gender Identity Female 07/17/2024 2:20 PM CDT Sexual Orientation Straight 07/17/2024 2: 20 PM CDT 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 No / Unsure 07/23/2022 9:44 AM CDT documented as of this encounter Plan of Treatment Upcoming Encounters Date Type Department Care Team (Late st Contact Info) Description 01/21/2025 7:20 AM PHOTO SPECIALIST [facility] [place] [address] [address] [place] [address] Kavita Theodore MD [address] [place] [address] [address] [place] [address] 05/21/2025 7:00 AM CDT Appointment [facility] [address] [place] [address] Jose Haynes DO [address] [place] [address] 07/26/2025 9:30 AM CDT Office Visit [facility] [address] Mark Foss MD [address] [place] [address] 07/30/2025 8:30 AM CDT Appointment [facility] [address] [facility] [address] [address] Baldemar Warren MD [address] [place] [address] 08/06/2025 10:20 AM CDT [facility] [address] [place] [address] Jose Haynes DO [address] [facility] [address] [place] [address] 08/12/2025 9:00 AM CDT Office Visit [facility] [address] [facility] [address] [place] [address] Baldemar Warren MD [address] [facility] [address] [place] [address] documented as of this encounter Visit Diagnoses Not on filedocumented in this encounter Care Teams Wrapper Layer Relationship Specialty Start Date End Date Kavita Thoedore MD [address] [place] [address] PCP - General INTERNAL MEDICINE 01/12/22 documented as of this encounter
--- OUTSIDE RECORDS SUMMARY | 2024-11-28 09:29 | XMS_ITS | Encounter Summary ---
Author Organization [facility] - [facility] Address [address] [place] [address] Care Team Providers Care Financial Developer Name Role Phone Kavita Theodore MD Primary Care Provider [phone] Encounter Details Date Type Department Care Team (Late st Contact Info) Description 01/22/2022 MyChart Message Enc [facility] Medical Group Multispecialty Care - [place] [address] [place] [address] 157 [address] [place] [address] [place] [address] [place] [address] 157 [place], [place] [id number] Labs Social History Tobacco Use Types Packs/Day Years Used Date Smoking Tobacco: Former Cigarettes 1 25 0 03/14/1988 - 03/14/2013 Smokeless Tobacco: Never Alcohol Use Standard Drinks/Week Comments Yes 3.3 (1 standard drink = 0.6 oz p ure alcohol) occ beer PHQ-2 Answer Date Recorded PHQ-2 Score - If the patient scores above 3, please move on to questions 3-9 0 01/12/2022 Comments Unknown Sex and Gender Information Value Date Recorded Sex Assigned at Female 05/15/2024 8:10 AM CDT Legal Sex Female 9:37 AM HISTOTECHNICIAN Gender Identity Female 07/17/2024 2:20 PM CDT Sexual Orientation Straight 07/17/2024 2: 20 PM CDT COVID-19 Exposure Response Date Recorded In the last 10 days, have yo u been in contact with someone who was confirmed or suspected to have Coronavirus/COVID-19? No / Unsure 01/12/2022 6:58 AM HISTOTECHNICIAN documented as of this encounter Plan of Treatment Upcoming Encounters Date Type Department Care Team (Late st Contact Info) Description 01/21/2025 7:20 AM HISTOTECHNICIAN [facility] [address] [place] [address] Kavita Theodore MD [address] [place] [address] 05/21/2025 7:00 AM CDT Appointment [facility] [address] [place] [address] Jose Haynes DO [address] [place] [address] 07/26/2025 9:30 AM CDT Office Visit [facility] [address] Mark Foss MD [address] [place] [address] 07/30/2025 8:30 AM CDT Appointment [facility] [address] [place] [address] Baldemar Warren MD [address] [place] [address] 08/06/2025 10:20 AM CDT Office Visit [facility]ialty Care - [facility] [address] [place] [address] Jose Haynes DO [address] [facility] [address] [place] [address] 08/12/2025 9:00 AM CDT Office Visit [facility] [address] [facility] [place] [place] [address] Baldemar Warren MD [address] [facility] [address] [place] [address] documented as of this encounter Visit Diagnoses Not on filedocumented in this encounter Care Teams Financial Developer Relationship Specialty Start Date End Date Kavita Theodore MD [address] [facility] [address] [place] [address] PCP - General INTERNAL MEDICINE 01/12/22 documented as of this encounter
--- OUTSIDE RECORDS SUMMARY | 2024-11-28 09:29 | XMS_ITS | Encounter Summary ---
Author Organization [facility] - [facility] Address [address] [place] [address] Care Team Providers Care C Software Engineer Name Role Phone Kavita Theodore MD Primary Care Provider [phone] Encounter Details Date Type Department Care Team (Latest Contact Info) Description 12/27/2022 Secondbrainhart Message Enc [facility] Medical Group Multispecialty Care - [place] [address] [place] [address] [address] [place] [address] [place] [address] [place] [address] 157 [place], [place] [id number] Labs from 12/19/2022 Social History Tobacco Use Types Packs/Day Years Used Date Smoking Tobacco: Former Cigarettes 1 25 0 03/14/1988 - 03/14/2013 Smokeless Tobacco: Never Comments:Counseled by Dr Zhanna herrera Alcohol Use Standard Drinks/Week Comments Yes 1 (1 standard drink = 0.6 oz pur e alcohol) occ beer PHQ-2 Answer Date Recorded Patient Health Questionnaire-2 Score 0 10/24/2022 Comments No Sex and Gender Information Value Date Recorded Sex Assigned at Female 05/15/2024 8:10 AM CDT Legal Sex Female 9:37 AM DATABASE ADMINISTRATION MANAGER Gender Identity Female 07/17/2024 2:20 PM CDT Sexual Orientation Straight 07/17/2024 2: 20 PM CDT 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 Not on file Not on file documented as of this encounter Plan of Treatment Upcoming Encounters Date Type Department Care Team (Late st Contact Info) Description 01/21/2025 7:20 AM DATABASE ADMINISTRATION MANAGER Office Visit [facility] Medical Group Multispecialty Care - [place] [address] [address] [place] [address] Kavita Theodore MD [facility] 157 [place] [address] 05/21/2025 7:00 AM CDT Appointment [facility] [address] [place] [address] Jose Haynes DO [address] [place] [address] 07/26/2025 9:30 AM CDT Office Visit [facility] [place] [address] Mark Foss MD [address] [place] [address] 07/30/2025 8:30 AM CDT Appointment [facility] [address] [place] [address] Baldemar Warren MD [address] [place] [address] 08/06/2025 10:20 AM CDT Office Visit [facility] Medical [facility] Multispecialty Care - [facility] [address] [place] [address] Jose Haynes DO [address] [place] [address] 08/12/2025 9:00 AM CDT Office Visit [facility] [facility] THREE [facility] [address] [place] [address] Baldemar Warren MD 3 [facility] [address] [place] [address] documented as of this encounter Visit Diagnoses Not on filedocumented in this encounter Care Teams C Software Engineer Relationship Specialty Start Date End Date Kavita Theodore MD [address] [facility] 157 [place] [address] PCP - General INTERNAL MEDICINE 01/12/22 documented as of this encounter
--- OUTSIDE RECORDS SUMMARY | 2024-11-28 09:29 | XMS_ITS | Encounter Summary ---
Author Organization [facility] - [facility] Address [address] [place] [address] Care Team Providers Care Population Health Coach Name Role Phone Kavita Theodore MD Primary Care Provider [phone] Encounter Details Date Type Department Care Team (Late st Contact Info) Description 01/07/2024 Decision Sciencest Message Enc [facility] Medical Group Multispecialty Care - [place] [address] [place] [address] 157 [address] [place] [address] [place] [address] [place] [address] 157 [place], [place] [id number] Menopause Social History Tobacco Use Types Packs/Day Years Used Date Smoking Tobacco: Former Cigarettes 1 25 0 03/14/1988 - 03/27/2013 Smokeless Tobacco: Never Comments:Counseled by Dr Zhanna herrera Alcohol Use Standard Drinks/Week Comments Yes 1 (1 standard drink = 0.6 oz pur e alcohol) occ beer PHQ-2 Answer Date Recorded Patient Health Questionnaire-2 Score 0 07/15/2023 Comments No Sex and Gender Information Value Date Recorded Sex Assigned at Female 05/15/2024 8:10 AM CDT Legal Sex Female 9:37 AM GORE CUTTER Gender Identity Female 07/17/2024 2:20 PM CDT Sexual Orientation Straight 07/17/2024 2: 20 PM CDT 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 Not on file Not on file documented as of this encounter Plan of Treatment Upcoming Encounters Date Type Department Care Team (Late st Contact Info) Description 01/21/2025 7:20 AM GORE CUTTER Office Visit [facility] Medical [facility] Multispecialty Care - [place] [address] [address] [place] [address] Kavita Theodore MD [address] [facility] 157 [place] [address] 05/21/2025 7:00 AM CDT Appointment [place] [address] [place] [address] Jose Haynes DO [address] [place] [address] 07/26/2025 9:30 AM CDT Office Visit [facility] [address] Mark Foss MD [address] [place] [address] 07/30/2025 8:30 AM CDT Appointment [place] [address] [place] [address] Baldemar Warren MD [address] [place] [address] 08/06/2025 10:20 AM CDT Office Visit [facility] Medical [facility]ty Care [facility] [address] [place] [address] Jose Haynes DO [address] [place] [address] 08/12/2025 9:00 AM CDT Office Visit [facility] THREE [facility] [address] [place] [address] Baldemar Warren MD 3 [facility] [address] [place] [address] documented as of this encounter Visit Diagnoses Not on filedocumented in this encounter Additional Health Concerns Assessment Noted Time PHQ-9 Depression Total Score: 0 06/28/19 24 2:55 PM CDT documented as of this encounter Care Teams Population Health Coach Relationship Specialty Start Date End Date Kavita Theodore MD [address] [facility] [address] [place] [address] PCP - General INTERNAL MEDICINE 01/12/22 documented as of this encounter
--- OUTSIDE RECORDS SUMMARY | 2024-11-28 09:29 | XMS_ITS | Encounter Summary ---
Author Organization [facility] - [facility] Address [address] [place] [address] Care Team Providers Care Semi Automatic Sewing Machine Operator Name Role Phone Kavita Theodore MD Primary Care Provider [phone] Encounter Details Date Type Department Care Team (Latest Contact Info) Description 05/24/2022 MyChart Message Enc [facility] Medical Group Multispecialty Care - [place] [address] [place] [address] 157 [address] [place] [address] Kavita Theodore MD 118[address] [facility] 157 [place], [place] [id number] Colonoscopy information/bone density Social History Tobacco Use Types Packs/Day Years Used Date Smoking Tobacco: Former Cigarettes 1 25 0 03/14/1988 - 03/14/2013 Smokeless Tobacco: Never Comments:Counseled by Dr Zhanna herrera Alcohol Use Standard Drinks/Week Comments Yes 3.3 (1 standard drink = 0.6 oz p ure alcohol) occ beer PHQ-2 Answer Date Recorded Patient Health Questionnaire-2 Score 0 05/23/2022 Comments No Sex and Gender Information Value Date Recorded Sex Assigned at Female 05/15/2024 8:10 AM CDT Legal Sex Female 9:37 AM SIGNAL TOWER OPERATOR Gender Identity Female 07/17/2024 2:20 PM CDT Sexual Orientation Straight 07/17/2024 2: 20 PM CDT COVID-19 Exposure Response Date Recorded In the last 10 days, have yo u been in contact with someone who was confirmed or suspected to have Coronavirus/COVID-19? No / Unsure 05/23/2022 3:08 PM CDT documented as of this encounter Plan of Treatment Upcoming Encounters Date Type Department Care Team (Late st Contact Info) Description 01/21/2025 7:20 AM SIGNAL TOWER OPERATOR [facility] [address] [place] [address] Kavita Theodore MD [address] [place] [address] 157 [place] [address] 05/21/2025 7:00 AM CDT Appointment [place] [address] [facility] [place] [address] Jose Haynes DO [address] [place] [address] 07/26/2025 9:30 AM CDT Office Visit [facility] [address] Mark Foss MD [address] [place] [address] 07/30/2025 8:30 AM CDT Appointment [place] [address] [place] [address] Baldemar Warren MD [address] [place] [address] 08/06/2025 10:20 AM CDT [facility]'s [address] [place] [address] Jose Haynes DO 3 [facility] [address] [place] [address] 08/12/2025 9:00 AM CDT Office Visit [facility] THREE [facility] [address] [place] [address] Baldemar Warren MD [address] [facility] [address] [place] [address] documented as of this encounter Visit Diagnoses Not on filedocumented in this encounter Care Teams Semi Automatic Sewing Machine Operator Relationship Specialty Start Date End Date Kavita Theodore MD [address] [facility] [address] [place] [address] PCP - General INTERNAL MEDICINE 01/12/22 documented as of this encounter
--- OUTSIDE RECORDS SUMMARY | 2024-11-28 09:29 | XMS_ITS | Encounter Summary ---
Author Organization [facility] Address [address] [place] [address] Care Team Providers Care Breast Surgeon Name Role Phone Kavita Theodore MD Primary Care Provider [phone] Encounter Details Date Type Department Care Team (Latest Contact Info) Description 08/30/2023 TrustAlertt Message Enc [facility] Medical [facility] [address] [address] Ryan Lynn MD [address] [place] [phone] medication question Social History Tobacco Use Types Packs/Day Years [...] AM CDT Legal Sex Female 9:37 AM SUPERVISOR STEEL DIVISION Gender Identity Female 07/17/2024 2:20 PM CDT Sexual Orientation Straight 07/17/2024 2: 20 PM CDT 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 on file Not on file documented as of this encounter Plan of Treatment Upcoming Encounters Date Type Department Care Team (Late st Contact Info) Description 01/21/2025 7:20 AM SUPERVISOR STEEL DIVISION Office Visit [facility] Medical Group Multispecialty Care - [place] [address] [address] [place] [address] Kavita Theodore MD [address] [facility] 157 [place] [address] 05/21/2025 7:00 AM CDT Appointment [place] [address] [place] [address] Jose Haynes DO [address] [place] [address] 07/26/2025 9:30 AM CDT Office Visit [facility] [place] [address] Mark Foss MD [address] [place] [address] 07/30/2025 8:30 AM CDT Appointment [facility] [address] [place] [address] Baldemar Warren MD [address] [place] [address] 08/06/2025 10:20 AM CDT Office Visit [facility] Medical Group Multispecialty Care - [facility]'s [address] [place] [address] Jose Haynes DO [address] [place] [address] 08/12/2025 9:00 AM CDT Office Visit [facility] THREE [facility] [place] [place] [address] Baldemar Warren MD 3 [facility] [address] [place] [address] documented as of this encounter Visit Diagnoses Not on filedocumented in this encounter Additional Health Concerns Assessment Noted Time PHQ-9 Depression Total Score: 0 06/28/19 24 2:55 PM CDT documented as of this encounter Care Teams Breast Surgeon Relationship Specialty Start Date End Date Kavita Theodore MD 1188 [facility] [address] [place] [address] PCP - General INTERNAL MEDICINE 01/12/22 documented as of this encounter
--- OUTSIDE RECORDS SUMMARY | 2024-11-28 09:29 | XMS_ITS | Encounter Summary ---
Author Organization [facility] Address [address] [place] [address] Care Team Providers Care Construction Trades Contractor Name Role Phone Kavita Theodore MD Primary Care Provider [phone] Encounter Details Date Type Department Care Team (Late st Contact Info) Description 11/29/2022 Implicit Monitoring Solutionshart Message Enc [facility] Medical Group Multispecialty Care - [place] [address] [place] [address] [address] [place] [address] [place] [address] [place] [address] 157 [place], [place] [phone] COVID vaccine Social History Tobacco Use Types Packs/Day Years [...] AM CDT Legal Sex Female 9:37 AM DOT ETCHER APPRENTICE Gender Identity Female 07/17/2024 2:20 PM CDT Sexual Orientation Straight 07/17/2024 2: 20 PM CDT 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 Not on file Not on file documented as of this encounter Plan of Treatment Upcoming Encounters Date Type Department Care Team (Late st Contact Info) Description 01/21/2025 7:20 AM DOT ETCHER APPRENTICE Office Visit [facility] Medical [facility] Multispecialty Care - [place] [address] [address] [place] [address] Kavita Theodore MD [address] [facility] 157 [place] [address] 05/21/2025 7:00 AM CDT Appointment [place] [address] [place] [address] Jose Haynes DO [address] [place] [address] 07/26/2025 9:30 AM CDT Office Visit [facility] [address] Mark Foss MD [address] [place] [address] 07/30/2025 8:30 AM CDT Appointment [place] [address] [place] [address] Baldemar Warren MD [address] [place] [address] 08/06/2025 10:20 AM CDT Office Visit [facility] Medical [facility] Multispecialty Care - [facility] [address] [place] [address] Jose Haynes DO [address] [place] [address] 08/12/2025 9:00 AM CDT Office Visit [facility] THREE [facility] [place] [place] [address] Baldemar Warren MD 3 [facility] [address] [place] [address] documented as of this encounter Visit Diagnoses Not on filedocumented in this encounter Care Teams Construction Trades Contractor Relationship Specialty Start Date End Date Kavita Theodore MD [address] [facility] [address] [place] [address] PCP - General INTERNAL MEDICINE 01/12/22 documented as of this encounter
--- OUTSIDE RECORDS SUMMARY | 2024-11-28 09:29 | XMS_ITS | Encounter Summary ---
Author Organization [facility] Address [facility] [place] [address] Care Team Providers Care Flagstone Layer Name Role Phone Kavita Theodore MD Primary Care Provider [phone] Encounter Details Date Type Department Care Team (Latest Contact Info) Description 07/24/2022 Askuity Message Enc [facility] [place] [address] [place], [place] [address] Mat Banuelos MD,PHD Updating information Social History Tobacco Use Types Packs/Day Years [...] AM CDT Legal Sex Female 9:37 AM DEVELOPMENTAL ELECTRONICS ASSEMBLER Gender Identity Female 07/17/2024 2:20 PM CDT Sexual Orientation Straight 07/17/2024 2: 20 PM CDT 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 No / Unsure 07/23/2022 9:44 AM CDT documented as of this encounter Progress Notes * Mat Banuelos MD,PHD - 07/24/2022 7:12 PM CDT Appreciate all this helpful information thank you. * Jo Ann Pandya RN - 07/24/2022 2:17 PM CDT See below documented in this encounter Plan of Treatment Upcoming Encounters Date Type Department Care Team (Late st Contact Info) Description 01/21/2025 7:20 AM DEVELOPMENTAL ELECTRONICS ASSEMBLER Office Visit [facility] Medical Group Multispecialty Care - [place] [address] [address] [place] [address] Kavita Theodore MD [address] [place] [address] 157 [place] [address] 05/21/2025 7:00 AM CDT Appointment [place] [address] [facility] [place] [address] Jose Haynes DO 3 [facility] [address] [place] [address] 07/26/2025 9:30 AM CDT Office Visit [facility] [address] Mark Foss MD [address] [place] [address] 07/30/2025 8:30 AM CDT Appointment [place] [address] [facility] [place] [address] Baldemar Warren MD [address] [facility] [address] [place] [address] 08/06/2025 10:20 AM CDT Office Visit [facility] Medical Group Multispecialty Care - [facility] [address] [place] [address] Jose Haynes DO [address] [facility] [address] [place] [address] 08/12/2025 9:00 AM CDT Office Visit [facility] THREE [facility] [place] [place] [address] Baldemar Warren MD 3 [facility] [address] [place] [address] documented as of this encounter Visit Diagnoses Not on filedocumented in this encounter Care Teams Flagstone Layer Relationship Specialty Start Date End Date Kavita Theodore MD [address] [facility] [address] [place] [address] PCP - General INTERNAL MEDICINE 01/12/22 documented as of this encounter
--- OUTSIDE RECORDS SUMMARY | 2024-11-28 09:29 | XMS_ITS | Clinical Summary ---
Author Organization [facility] Address [address] [place] [address] Care Team Providers Care Vocational Services Specialist Name Role Phone Unavailable Primary Care Provider Unavailabl e Source Comments [facility],non-owned Affiliates and Associated Physician Practices is amultiple site organization consisting of ambulatory clinics and hospital sitesin [place], [place], [place] and [place]. This disclosure is being madepursuant to the Care Everywhere program and may not contain all information available regarding this patient. Last updated 17.[facility] [employer] Social History Tobacco Use Types Packs/Day Years Used Date Smoking Tobacco: Never Assessed Comments Unknown Sex and Gender Information Value Date Recorded Sex Assigned at Not on file Legal Sex Female 3:26 PM SLEEPING ROOM CLEANER Gender Identity Not on file Sexual Orientation [...] patient's age to complete this topic Insurance [employer]
--- OUTSIDE RECORDS SUMMARY | 2024-11-28 09:29 | XMS_ITS | Encounter Summary ---
Author Organization [facility] - [facility] Address [address] [place] [address] Care Team Providers Care Final Canoe Inspector Name Role Phone Kavita Theodore MD Primary Care Provider [phone] Encounter Details Date Type Department Care Team (Late st Contact Info) Description 03/13/2022 MyChart Message Enc [facility] Medical Group Multispecialty Care - [place] [address] [facility] [address] [place] [address] [place] [address] [place] [address] [address] [place], [place] [id number] Need Valtrex Social History Tobacco Use Types Packs/Day Years [...] on to questions 3-9 0 01/12/2022 Comments No Sex and Gender Information Value Date Recorded Sex Assigned at Female 05/15/2024 8:10 AM CDT Legal Sex Female 9:37 AM SPIRITUAL COUNSELOR Gender Identity Female 07/17/2024 2:20 PM CDT Sexual Orientation Straight 07/17/2024 2: 20 PM CDT COVID-19 Exposure Response Date Recorded In the last 10 days, have yo u been in contact with someone who was confirmed or suspected to have Coronavirus/COVID-19? No / Unsure 03/13/2022 12:55 PM SPIRITUAL COUNSELOR documented as of this encounter Plan of Treatment Upcoming Encounters Date Type Department Care Team (Late st Contact Info) Description 01/21/2025 7:20 AM SPIRITUAL COUNSELOR Office Visit [facility] Medical [facility] - [place] [address] [address] [place] [address] Kavita Theodore MD 118[address] [facility] 157 [place] [address] 05/21/2025 7:00 AM CDT Appointment [facility] [address] [place] [address] Jose Haynes DO [address] [place] [address] 07/26/2025 9:30 AM CDT Office Visit [facility] [address] Mark Foss MD [address] [place] [address] 07/30/2025 8:30 AM CDT Appointment [facility] [address] [place] [address] Baldemar Warren MD [address] [place] [address] 08/06/2025 10:20 AM CDT Office Visit [facility] Medical [facility] Multispecialty Care - [facility]'s [address] [place] [address] Jose Haynes DO 3 [facility] v [address] [place] [address] 08/12/2025 9:00 AM CDT Office Visit [facility] THREE [facility] [place] [place] [address] Baldemar Warren MD 3 [facility] [address] [place] [address] documented as of this encounter Visit Diagnoses Not on filedocumented in this encounter Care Teams Final Canoe Inspector Relationship Specialty Start Date End Date Kavita Theodore MD [address] [facility] [address] [place] [address] PCP - General INTERNAL MEDICINE 01/12/22 documented as of this encounter
--- OUTSIDE RECORDS SUMMARY | 2024-11-28 09:29 | XMS_ITS | Encounter Summary ---
Author Organization [facility] Address [facility] [place] [address] Care Team Providers Care Time Study Statistician Name Role Phone Kavita Theodore MD Primary Care Provider [phone] Encounter Details Date Type Department Care Team (Late st Contact Info) Description 07/25/2022 Abstract [facility], [address] [address] Nadine Rodriguez MA Social History Tobacco Use Types Packs/Day Years [...] AM CDT Legal Sex Female 9:37 AM SPECIAL EFFECTS SPECIALIST Gender Identity Female 07/17/2024 2:20 PM CDT Sexual Orientation Straight 07/17/2024 2: 20 PM CDT 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 Not on file Not [...] st Contact Info) Description 01/21/2025 7:20 AM SPECIAL EFFECTS SPECIALIST Office Visit [facility] Medical Group Multispecialty Care - [place] [address] [address] [place] [address] Kavita Theodore MD [address] [place] [address] 157 [place] [address] 05/21/2025 7:00 AM CDT Appointment [facility] [address] [place] [address] Jose Haynes DO [address] [place] [address] 07/26/2025 9:30 AM CDT Office Visit [facility] [address] [facility] [address] [place] [address] Mark Foss MD [address] [place] [address] 07/30/2025 8:30 AM CDT Appointment [facility] [address] [place] [address] Baldemar Warren MD [address] [place] [address] 08/06/2025 10:20 AM CDT Office Visit [facility] Medical [facility] Multispecialty Care - [facility]'s [address] [place] [address] Jose Haynes DO 3 [facility] [address] [place] [address] 08/12/2025 9:00 AM CDT Office Visit [facility] [address] [facility] [address] [place] [address] Baldemar Warren MD 3 [facility] [address] [place] [address] documented as of this encounter Procedures Procedure Name Priority Date/Time Associated Diagnosis Comments HEMOGLOBIN, GLYCOSYLATED Routine 12/19/2022 FREE T3 Routine 12/19/2022 COMPREHENSIVE METABOLIC PANEL Routine 12/19/2022 LIPID PANEL Routine 12/19/2022 CBC, MANUAL DIFF Routine 12/19/2022 THYROXINE, FREE (FT4) Routine 12/19/2022 THYROID STIM HORMONE TSH Routine 12/19/2022 VITAMIN D, 25 OH Routine 12/19/2022 LIPID PANEL Routine 07/24/2022 documented in this encounter Results * VITAMIN D, 25 OH (12/19/2022) VITAMIN D 25 HYDROXY S/P/B 108 12/19/2022 us Default History Genericprovider LABORATORY Final Result * COMPREHENSIVE METABOLIC PANEL (12/19/2022) SODIUM S/P/B 137 GLUCOSE 98 mg/dL AST 25 BUN 28 CREATININE S/P/B 1.0 0.5 - 1.0 CALCIUM S/P/B 9.40 POTASSIUM S/P/B 4.2 CHLORIDE S/P/B 103 ALT 50 GFR ESTIMATE 66 us Default History Genericprovider LABORATORY Final Result * LIPID PANEL (12/19/2022) [facility] CHOLESTEROL 104 TRIGLYCERIDES 70 HDL 42 LDL (CALCULATED) 47 NON HDL CHOLESTEROL 62 us Default History Genericprovider LABORATORY Final Result * CBC, MANUAL DIFF (12/19/2022) [facility] WBC 6.0 HGB 14.1 HCT 40.4 PLT 267 us Default History Genericprovider LABORATORY Final Result * THYROXINE, FREE (FT4) (12/19/2022) [facility] FREE T4 1.5 us Default History Genericprovider LABORATORY Final Result * HEMOGLOBIN, GLYCOSYLATED (12/19/2022) [facility] HGB A1C 5.4 % us Default History Genericprovider LABORATORY Final Result * THYROID STIM HORMONE, TSH (12/19/2022) [facility] TSH 0.01 us Default History Genericprovider LABORATORY Final Result * FREE T3 (12/19/2022) [facility] FREE T3 7.9 us Default History Genericprovider LABORATORY Final Result * LIPID PANEL (07/24/2022) [facility] CHOLESTEROL 182 TRIGLYCERIDES 93 HDL 38 LDL (CALCULATED) 125 NON HDL CHOLESTEROL 144 Narrative Resulting Agency Comment Default History Genericprovider LABORATORY Edited Result - Final documented in this encounter Visit Diagnoses Not on filedocumented in this encounter Care Teams Time Study Statistician Relationship Specialty Start Date End Date Kavita Theodore MD [address] [facility] [address] [place] [address] PCP - General INTERNAL MEDICINE 01/12/22 documented as of this encounter
--- OUTSIDE RECORDS SUMMARY | 2024-11-28 09:29 | XMS_ITS | Encounter Summary ---
Author Organization [facility] - [facility] Address [address] [place] [address] Care Team Providers Care Store Keeper Name Role Phone Kavita Theodore MD Primary Care Provider [phone] Encounter Details Date Type Department Care Team (Latest Contact Info) Description 08/18/2024 DTU CORPhart Message Enc [facility] Medical Group Multispecialty Care - [facility] [address] [place] [address] Jose Haynes DO [address] [facility] [address] [place], [place] [id number] Change appointment Social History Tobacco Use Types Packs/Day Years Used Date Smoking Tobacco: Former Cigarettes 1 25 0 03/14/1988 - 03/27/2013 Smokeless Tobacco: Never Comments:Counseled by Dr Zhanna herrera Alcohol Use Standard Drinks/Week Comments Not Currently 0 (1 standard drink = 0.6 oz pur e alcohol) rarely AUDIT-C Answer Date Recorded Q1: How often do you have a drink containing alc ohol? Monthly or less 01/20/2024 Q2: How many drinks containi ng alcohol do you have on a typical day when you are drinking? 1 or 2 01/20/2024 Q3: How often do you have si x or more drinks on one occasion? 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 Not on file Not on file documented as of this encounter Plan of Treatment Upcoming Encounters Date Type Department Care Team (Late st Contact Info) Description 01/21/2025 7:20 AM ASSISTANT FACILITY MANAGER Office Visit [facility] Medical Group Multispecialty Care - [place] [address] [address] [place] [address] Kavita Theodore MD [address] [place] [address] 05/21/2025 7:00 AM CDT Appointment [facility] [address] [facility] [place] [address] Jose Haynes DO [address] [place] [address] 07/26/2025 9:30 AM CDT Office Visit [facility] [address] Mark Foss MD [address] [place] [address] 07/30/2025 8:30 AM CDT Appointment [facility] [address] [address] Baldemar Warren MD [address] [place] [address] 08/06/2025 10:20 AM CDT Office Visit [facility] Medical Group Multispecialty Care - [facility] [address] [facility] [address] [place] [address] Jose Haynes DO 3 [facility] [address] [place] [address] 08/12/2025 9:00 AM CDT Office Visit [facility] THREE [facility] [place] [place] [address] Baldemar Warren MD 3 [facility] [address] [place] [address] documented as of this encounter Visit Diagnoses Not on filedocumented in this encounter Additional Health Concerns Assessment Noted Time PHQ-9 Depression Total Score: 0 01/20/20 24 7:59 AM ASSISTANT FACILITY MANAGER documented as of this encounter Care Teams Store Keeper Relationship Specialty Start Date End Date Kavita Theodore MD [address] [facility] [address] [place] [address] PCP - General INTERNAL MEDICINE 01/12/22 documented as of this encounter
--- OUTSIDE RECORDS SUMMARY | 2024-11-28 09:29 | XMS_ITS | Encounter Summary ---
Author Organization [facility] - [facility] Address [address] [place] [address] Care Team Providers Care Shed Hand Name Role Phone Kavita Theodore MD Primary Care Provider [phone] Encounter Details Date Type Department Care Team (Latest Contact Info) Description 07/14/2024 SecureWavehart Message Enc [facility] Medical Group Multispecialty Care - [place] [address] [place] [address] [address] [place] [address] Kavita Theodore MD 1188 [facility] 157 [place], [place] [id number] Attached labs from 06.17.2024 Social History Tobacco Use Types Packs/Day Years [...] AM CDT Legal Sex Female 9:37 AM WINDOW DRESSER Gender Identity Female 07/17/2024 2:20 PM CDT Sexual Orientation Straight 07/17/2024 2: 20 PM CDT 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 on file Not on file documented as of this encounter Plan of Treatment Upcoming Encounters Date Type Department Care Team (Late st Contact Info) Description 01/21/2025 7:20 AM WINDOW DRESSER Office Visit [facility] Medical Group Multispecialty Care - [address] [place] [address] Kavita Theodore MD [address] [place] [address] 05/21/2025 7:00 AM CDT Appointment [facility] [address] [place] [place] [address] Jose Haynes DO [address] [place] [address] 07/26/2025 9:30 AM CDT Office Visit [place] [facility] [address] Mark Foss MD [address] [place] [address] 07/30/2025 8:30 AM CDT Appointment [facility] [place] [address] Baldemar Warren MD [address] [place] [address] 08/06/2025 10:20 AM CDT Office Visit [facility] Medical Group Multispecialty Care - [facility] [address] [facility] [address] [place] [address] Jose Haynes DO 3 [facility] [address] [place] [address] 08/12/2025 9:00 AM CDT Office Visit [facility] [address] [facility] [address] [place] [address] Baldemar Warren MD [address] [facility] [address] [place] [address] documented as of this encounter Visit Diagnoses Not on filedocumented in this encounter Additional Health Concerns Assessment Noted Time PHQ-9 Depression Total Score: 0 01/20/20 24 7:59 AM WINDOW DRESSER documented as of this encounter Care Teams Shed Hand Relationship Specialty Start Date End Date Kavita Theodore MD [address] [address] PCP - General INTERNAL MEDICINE 01/12/22 documented as of this encounter
--- OUTSIDE RECORDS SUMMARY | 2024-11-28 09:29 | XMS_ITS | Encounter Summary ---
Author Organization [facility] - [facility] Address [facility] [place] [address] Care Team Providers Care Eligibility Worker Name Role Phone Kavita Theodore MD Primary Care Provider [phone] Encounter Details Date Type Department Care Team (Late st Contact Info) Description 01/15/2022 PercSys Message Enc [facility] Medical Group Multispecialty Care - [place] [address] [place] [address] [place] Provider Xray result Social History Tobacco Use Types Packs/Day Years [...] AM CDT Legal Sex Female 9:37 AM SENIOR ORACLE ADF DEVELOPER Gender Identity Female 07/17/2024 2:20 PM CDT Sexual Orientation Straight 07/17/2024 2: 20 PM CDT COVID-19 Exposure Response Date Recorded In the last 10 days, have yo u been in contact with someone who was confirmed or suspected to have Coronavirus/COVID-19? No / Unsure 01/12/2022 6:58 AM SENIOR ORACLE ADF DEVELOPER documented as of this encounter Plan of Treatment Upcoming Encounters Date Type Department Care Team (Late st Contact Info) Description 01/21/2025 7:20 AM SENIOR ORACLE ADF DEVELOPER Office Visit [facility] Medical Group Multispecialty Care - [place] [address] [address] [place] [address] Kavita Theodore MD 1188 [facility] 157 [place] [address] 05/21/2025 7:00 AM CDT Appointment [facility] [address] [place] [address] Jose Haynes DO [address] [place] [address] 07/26/2025 9:30 AM CDT Office Visit [facility] [place] [address] Mark Foss MD [address] [place] [address] 07/30/2025 8:30 AM CDT Appointment [facility] [address] [place] [address] Baldemar Warren MD [address] [place] [address] 08/06/2025 10:20 AM CDT Office Visit [facility] Medical Group Multispecialty Care - [facility] [address] [place] [address] Jose Haynes DO [address] [place] [address] 08/12/2025 9:00 AM CDT Office Visit [facility] THREE [facility] [address] [place] [address] Baldemar Warren MD 3 [facility] [address] [place] [address] documented as of this encounter Visit Diagnoses Not on filedocumented in this encounter Care Teams Eligibility Worker Relationship Specialty Start Date End Date Kavita Theodore MD 1188 [facility] 157 [place] [address] PCP - General INTERNAL MEDICINE 01/12/22 documented as of this encounter
--- OUTSIDE RECORDS SUMMARY | 2024-11-28 09:29 | XMS_ITS | Encounter Summary ---
Author Organization [facility] - [facility] Address [address] [place] [address] Care Team Providers Care Daycare Worker Name Role Phone Kavita Theodore MD Primary Care Provider [phone] Encounter Details Date Type Department Care Team (Latest Contact Info) Description 01/12/2022 MyChart Message Enc [facility] Medical Group Multispecialty Care - [place] [address] [place] [address] [address] [place] [address] [place] [address] [place] [address] 157 [place], [place] [address] Date of last colonoscopy Social History Tobacco Use Types Packs/Day Years [...] AM CDT Legal Sex Female 9:37 AM SUPERVISORY IT SPECIALIST Gender Identity Female 07/17/2024 2:20 PM CDT Sexual Orientation Straight 07/17/2024 2: 20 PM CDT COVID-19 Exposure Response Date Recorded In the last 10 days, have yo u been in contact with someone who was confirmed or suspected to have Coronavirus/COVID-19? No / Unsure 01/12/2022 6:58 AM SUPERVISORY IT SPECIALIST documented as of this encounter Functional Status * Calculated C-SSRS Risk Score (Lifetime/Recent) Answer Date of Assessment Author Status No Risk Indicated 01/12/2022 8:49 PM SUPERVISORY IT SPECIALIST Kavita Theodore MD Active * [place] Suicide Severity Rating Scale (Screener/Recent Self-Report) Question Answer Date of Assessment Author Status 1. Wish to be (Past 1 Month) No 01/12/2022 8:49 PM SUPERVISORY IT SPECIALIST Kavita Theodore MD Active 2. Non-Specific Active Suici brie Thoughts (Past 1 Month) No 01/12/2022 8:49 PM SUPERVISORY IT SPECIALIST Kavita Theodore MD Active 6. Suicidal Behavior (Lifetime) No 01/12/2022 8:49 PM SUPERVISORY IT SPECIALIST Kavita Theodore MD Active documented as of this encounter Plan of Treatment Upcoming Encounters Date Type Department Care Team (Late st Contact Info) Description 01/21/2025 7:20 AM SUPERVISORY IT SPECIALIST Office Visit [facility] Medical Group Multispecialty Care - [place] [address] [address] [place] [address] [place] [address] [place] [address] 157 [place] [address] 05/21/2025 7:00 AM CDT Appointment [place] [address] [facility] [address] [place] [address] Jose Haynes DO 3 [place] [address] [place] [address] 07/26/2025 9:30 AM CDT Office Visit [facility] [place] [address] Mark Foss MD Three [facility] [address] [place] [address] 07/30/2025 8:30 AM CDT Appointment [place] [address] [facility] [address] [place] [address] Baldemar Warren MD [address] [facility] [address] [place] [address] 08/06/2025 10:20 AM CDT Office Visit [facility] Medical Group Multispecialty Care - [facility] [address] [facility] [place] [address] Jose Haynes DO 3 [facility] [address] [place] [address] 08/12/2025 9:00 AM CDT Office Visit [facility] [address] [facility] [address] [place] [address] Baldemar Warren MD [address] [facility] [address] [place] [address] documented as of this encounter Visit Diagnoses Not on filedocumented in this encounter Care Teams Daycare Worker Relationship Specialty Start Date End Date Kavita Theodore MD 1188 [facility] 157 [place] [address] PCP - General INTERNAL MEDICINE 01/12/22 documented as of this encounter
--- OUTSIDE RECORDS SUMMARY | 2024-11-28 09:29 | XMS_ITS | Encounter Summary ---
Author Organization [facility] - [facility] Address [address] [place] [address] Care Team Providers Care Manager Of Case Management Name Role Phone Kavita Theodore MD Primary Care Provider [phone] Encounter Details Date Type Department Care Team (Late st Contact Info) Description 05/24/2022 MyChart Message Enc [facility] Medical Group Multispecialty Care - [place] [address] [facility] [address] [place] [address] [place] [address] [place] [address] 157 [place], [place] [id number] Sleep Study Social History Tobacco Use Types Packs/Day Years [...] AM CDT Legal Sex Female 9:37 AM AUDIO SPECIALIST Gender Identity Female 07/17/2024 2:20 PM [...] st Contact Info) Description 01/21/2025 7:20 AM AUDIO SPECIALIST [facility] [address] [place] [address] Kavita Theodore MD [address] [place] [address] 157 [place] [address] 05/21/2025 7:00 AM CDT Appointment [facility] [address] [place] [address] Jose Haynes DO [address] [place] [address] 07/26/2025 9:30 AM CDT Office Visit [facility] [address] Mark Foss MD [address] [place] [address] 07/30/2025 8:30 AM CDT Appointment [facility] [address] [place] [address] Baldemar Warren MD [address] [place] [address] 08/06/2025 10:20 AM CDT Office Visit [facility] Multis[facility]ialty Care - [facility] [address] [place] [address] Jose Haynes DO 3 [facility] [address] [place] [address] 08/12/2025 9:00 AM CDT Office Visit [facility] [address] [facility] [place] [place] [address] Baldemar Warren MD [address] [facility] [address] [place] [address] documented as of this encounter Visit Diagnoses Not on filedocumented in this encounter Care Teams Manager Of Case Management Relationship Specialty Start Date End Date Kavita Theodore MD 1188 [facility] 157 [place] [address] PCP - General INTERNAL MEDICINE 01/12/22 documented as of this encounter
--- OUTSIDE RECORDS SUMMARY | 2024-11-28 09:29 | XMS_ITS | Encounter Summary ---
Author Organization [facility] - [facility] Address [address] [place] [address] Care Team Providers Care Engineering Mathematician Name Role Phone Kaviat Theodore MD Primary Care Provider [phone] Encounter Details Date Type Department Care Team (Latest Contact Info) Description 10/24/2022 MyChart Message Enc [facility] Mult[facility]pecialty Care - [place] [address] [address] [address] [place] [address] Kavita Theodore MD 1188 [facility] 157 [place], [place] [id number] PET scan. Call to schedule an appointment. 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 Question Answer Date of Assessment Author Status Little interest or pleasure in doing things Not at all 10/24/2022 4:16 PM CDT Kayla Dixon MA Active Feeling down, depressed, or hopeless Not at all 10/24/2022 4:16 PM CDT Riya Dixon MA Active Patient Health Questionnaire-2 Score 0 10/24/2022 4:16 PM CDT Viky Dixon MA Active * Calculated C-SSRS Risk Score (Lifetime/Recent) Answer Date of Assessment Author Status No Risk Indicated 10/24/2022 5:11 PM CDT Kavita Theodore MD Active * If you checked off any problems on this questionnaire so far, Question Answer Date of Assessment Author Status How difficult have these problems made it for you to do your work, take care of things at home, or get along with other people? Not difficult at all 10/24/2022 4:16 PM CDT Kayla Dixon MA Active * Over the last 2 weeks, how often have you been bothered by any of the following problems? Question Answer Date of Assessment Author Status Feeling nervous, anxious, or on edge 0 10/24/2022 4:16 PM CDT Kayla Dixon MA Ac tive Not being able to stop or control worrying 0 10/24/2022 4:16 PM CDT Kayla Dixon MA A ctive Worrying too much about different things 0 10/24/2022 4:16 PM CDT Kayla Dixon MA A ctive Trouble relaxing 0 10/24/2022 4:16 PM CDT Kayla Acevedo MA Active Being so restless that it is hard to sit still 0 10/24/2022 4:16 PM Kayla Walters MA Active Becoming easily annoyed or irritable 0 10/24/2022 4:16 PM CDT Kayla Dixon MA Ac tive Feeling afraid as if something awful might happen 0 10/24/2022 4:16 PM CDT Kayla Dixon MA Ac tive VALENTÍN-7 Total Score 0 10/24/2022 4:16 PM CDT Kayla Escobedo MA Active * [place] Suicide Severity Rating Scale (Screener/Recent Self-Report) Question Answer Date of Assessment Author Status 1. Wish to be (Past 1 Month) No 10/24/2022 5:11 PM CDT Kavita Theodore MD Active 2. Non-Specific Active Suici brie Thoughts (Past 1 Month) No 10/24/2022 5:11 PM CDT Kavita Theodore MD Active 6. Suicidal Behavior (Lifetime) No 10/24/2022 5:11 PM CDT Kavita Theodore MD Active documented as of this encounter Plan of Treatment Upcoming Encounters Date Type Department Care Team (Late st Contact Info) Description 01/21/2025 7:20 AM DIRT BIKE MECHANIC Office Visit [facility] Multispecialty Care - [address] [address] [address] [place] [address] Kavita Theodore MD [address] [place] [address] 05/21/2025 7:00 AM CDT Appointment [facility] [address] [facility] [place] [address] Jose Haynes DO [address] [facility] [address] [place] [address] 07/26/2025 9:30 AM CDT Office Visit [facility] [address] Mark Foss MD Three [facility] [place] [address] 07/30/2025 8:30 AM CDT Appointment [facility] [address] [facility] [place] [address] Baldemar Warren MD [address] [facility] [address] [place] [address] 08/06/2025 10:20 AM CDT Office Visit [facility] Mult[facility]pecialty Care - [facility] [address] [facility] [place] [address] Jose Haynes DO [address] [facility] [address] [place] [address] 08/12/2025 9:00 AM CDT Office Visit [facility] [address] [facility] [place] [address] [place] [address] Baldemar Warren MD 3 [facility] [address] [place] [address] documented as of this encounter Visit Diagnoses Not on filedocumented in this encounter Care Teams Engineering Mathematician Relationship Specialty Start Date End Date Kavita Theodore MD [address] [address] PCP - General INTERNAL MEDICINE 01/12/22 documented as of this encounter
--- OUTSIDE RECORDS SUMMARY | 2024-11-28 09:29 | XMS_ITS | Clinical Summary ---
Author Organization [facility] Tayla Quinonez Address [address] [place] [address] Care Team Providers Care Ladies Locker Room Attendant Name Role Phone Juan Antoniojeremías Betty REBEKAH Primary Care Provider [phone] Allergies Active Allergy Reactions Criticality Noted Date [...] 2016 INFLUENZA VACCINE (#1) 2024 Care Teams Ladies Locker Room Attendant Relationship Specialty Start Date End Date Betty Jauregui ANP [address] [address] PCP - General Nurse Practitioner Adult Health 09/16/19
--- OUTSIDE RECORDS SUMMARY | 2024-11-28 09:29 | XMS_ITS | Encounter Summary ---
Author Organization [facility] Address [address] [place] [address] Care Team Providers Care Drill Setup Operator Name Role Phone Kavita Theodore MD Primary Care Provider Encounter Details Date Type Department Care Team (Late st Contact Info) Description 01/31/2023 Solar Site Designhart Message Enc [facility]ty Care - [place] [address] [place] [address] 157 [address] [place] [address] [place] [address] [place] [address] 157 [place], [place] [id number] Need valtrex Social History Tobacco Use Types Packs/Day Years Used Date Smoking Tobacco: Former Cigarettes 1 25 0 03/14/1988 - 03/14/2013 Smokeless Tobacco: Never Comments:Counseled by Dr Zhanna herrera Alcohol Use Standard Drinks/Week Comments Yes 1 (1 standard drink = 0.6 oz pur e alcohol) occ beer PHQ-2 Answer Date Recorded Patient Health Questionnaire-2 Score 0 01/15/2023 Comments No Sex and Gender Information Value Date Recorded Sex Assigned at Female 05/15/2024 8:10 AM CDT Legal Sex Female 9:37 AM PARAMEDICAL AIDE Gender Identity Female 07/17/2024 2:20 PM CDT Sexual Orientation Straight 07/17/2024 2: 20 PM CDT 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 Not on file Not on file documented as of this encounter Plan of Treatment Upcoming Encounters Date Type Department Care Team (Late st Contact Info) Description 01/21/2025 7:20 AM PARAMEDICAL AIDE [facility] Care - [address] [address] [address] [place] [address] Kavita Theodore MD 1188 [facility] 157 [place] [address] 05/21/2025 7:00 AM CDT Appointment [facility] [address] [place] [address] Jose Haynes DO [address] [place] [address] 07/26/2025 9:30 AM CDT Office Visit [facility] [address] Mark Foss MD [address] [place] [address] 07/30/2025 8:30 AM CDT Appointment [facility] [address] [place] [address] Baldemar Warren MD [address] [place] [address] 08/06/2025 10:20 AM CDT [facility] [address] [place] [address] Jose Haynes DO [address] [place] [address] 08/12/2025 9:00 AM CDT Office Visit [facility] THREE [facility] [place] [address] [place] [address] Baldemar Warren MD 3 [facility] [address] [place] [address] documented as of this encounter Visit Diagnoses Not on filedocumented in this encounter Additional Health Concerns Assessment Noted Time PHQ-9 Depression Total Score: 0 01/16/20 23 7:42 AM PARAMEDICAL AIDE documented as of this encounter Care Teams Drill Setup Operator Relationship Specialty Start Date End Date Kavita Theodore MD [address] [facility] [address] [place] [address] PCP - General INTERNAL MEDICINE 01/12/22 documented as of this encounter
--- OUTSIDE RECORDS SUMMARY | 2024-11-28 09:29 | XMS_ITS | Encounter Summary ---
Author Organization [facility] - [facility] Address [facility] [place] [address] Care Team Providers Care High School English Teacher Name Role Phone Kavita Theodore MD Primary Care Provider [phone] Encounter Details Date Type Department Care Team (Late st Contact Info) Description 07/14/2024 Interactive Performance Solutionst Message Enc 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 Medical Group Multispecialty Care - [address] [place] [address] Kavita Theodore MD [address] [place] [address] 05/21/2025 7:00 AM CDT Appointment [facility] [place] [address] Jose Haynes DO [address] [facility] [address] [place] [address] 07/26/2025 9:30 AM CDT Office Visit [facility] [address] Mark Foss MD Three [facility] [address] [place] [address] 07/30/2025 8:30 AM CDT Appointment [place] [place] [address] Baldemar Warren MD [address] [facility] [address] [place] [address] 08/06/2025 10:20 AM CDT Office Visit [facility] Medical Group Multispecialty Care - [facility] [address] [place] [address] Jose Haynes DO [address] [facility] [address] [place] [address] 08/12/2025 9:00 AM CDT Office Visit [facility] [address] [facility] [address] [place] [address] [place] [address] Baldemar Warren MD [address] [facility] [address] [place] [address] documented as of this encounter Visit Diagnoses Not on filedocumented in this encounter Additional Health Concerns Assessment Noted Time PHQ-9 Depression Total Score: 0 01/20/20 24 7:59 AM ROLL FORMING MACHINE OPERATOR documented as of this encounter Care Teams High School English Teacher Relationship Specialty Start Date End Date Kavita Theodore MD [address] [address] PCP - General INTERNAL MEDICINE 01/12/22 documented as of this encounter
--- OUTSIDE RECORDS SUMMARY | 2024-11-28 09:29 | XMS_ITS | Encounter Summary ---
Author Organization [facility] - [facility] Address [address] [place] [address] Care Team Providers Care Engine Service Repairer Name Role Phone Kavita Theodore MD Primary Care Provider [phone] Encounter Details Date Type Department Care Team (Latest Contact Info) Description 10/24/2022 MyChart Message Enc [facility] Medical [facility] Multispecialty Care - [place] [address] [place] [address] 157 [address] [place] [address] Kavita Theodore MD 1188 [facility] 157 [place], [place] [phone] Lipad panel from 10.16.[address] scan/Echocardiogram from 09.10.2019 Social History Tobacco Use Types Packs/Day Years [...] AM CDT Legal Sex Female 9:37 AM MARINE SERVICE STATION ATTENDANT Gender Identity Female 07/17/2024 2:20 PM CDT Sexual Orientation Straight 07/17/2024 2: 20 PM CDT 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 on file Not [...] to sit still 0 10/24/2022 4:16 PM CDT Kayla Dixon MA Active Becoming easily annoyed or irritable 0 10/24/2022 4:16 PM CDT Kayla Dixon MA Ac tive Feeling afraid as if something awful might happen 0 10/24/2022 4:16 PM CDT Kayla Dixon MA Ac tive VALENTÍN-7 Total Score 0 10/24/2022 4:16 PM CDT Kayla Escobedo MA Active * [place] Suicide Severity Rating Scale (Screener/Recent Self-Report) Question [...] st Contact Info) Description 01/21/2025 7:20 AM MARINE SERVICE STATION ATTENDANT Office Visit [facility] Medical Group Multispecialty Care - [address] [address] [address] [place] [address] Kavita Theodore MD [address] [place] [address] 05/21/2025 7:[address] [address] [facility] [place] [address] Jose Haynes DO 3 [facility] [address] [place] [address] 07/26/2025 9:30 AM CDT Office Visit [facility] [address] Mark Foss MD [address] [facility] [address] [place] [address] 07/30/2025 8:[address] [facility] [place] [address] Baldemar Warren MD [address] [facility] [address] [place] [address] 08/06/2025 10:20 AM CDT Office Visit [facility] Medical [facility] Multispecialty Care - [facility] [address] [place] [address] Jose Haynes DO 3 [facility] [address] [place] [address] 08/12/2025 9:00 AM CDT Office Visit [facility] [address] [place] [place] [address] Baldemar Warren MD [address] [facility] [address] [place] [address] documented as of this encounter Visit Diagnoses Not on filedocumented in this encounter Care Teams Engine Service Repairer Relationship Specialty Start Date End Date Kavita Theodore MD 1188 [facility] [address] [place] [address] PCP - General INTERNAL MEDICINE 01/12/22 documented as of this encounter
--- OUTSIDE RECORDS SUMMARY | 2024-11-28 09:29 | XMS_ITS | Encounter Summary ---
Author Organization [facility] - [facility] Address [address] [place] [address] Care Team Providers Care Etcher Machine Name Role Phone Kavita Theodore MD Primary Care Provider [phone] Encounter Details Date Type Department Care Team (Late st Contact Info) Description 07/15/2023 MyChart Message Enc [facility] Medical Group Multispecialty Care - [place] [address] [place] [address] [address] [place] [address] [place] [address] [place] [address] 157 [place], [place] [id number] Mar labs Social History Tobacco Use Types Packs/Day Years [...] AM CDT Legal Sex Female 9:37 AM ZIPPER SETTER LOCKSTITCH Gender Identity Female 07/17/2024 2:20 PM CDT Sexual Orientation Straight 07/17/2024 2: 20 PM CDT 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 Question Answer Date of Assessment Author Status Little interest or pleasure in doing things Not at all 07/15/2023 7:44 AM Kayla Walters MA Active Feeling down, depressed, or hopeless Not at all 07/15/2023 7:44 AM CDT Riya Dixon MA Active Patient Health Questionnaire-2 Score 0 07/15/2023 7:44 AM CDT Viky Dixon MA Active * Calculated C-SSRS Risk Score (Lifetime/Recent) Answer Date of Assessment Author Status No Risk Indicated 07/15/2023 8:06 AM CDT Kavita Theodore MD Active * If you checked off any problems on this questionnaire so far, Question Answer Date of Assessment Author Status How difficult have these problems made it for you to do your work, take care of things at home, or get along with other people? Not difficult at all 07/15/2023 7:44 AM CDT Kayla Dixon MA Active * Over the last 2 weeks, how often have you been bothered by any of the following problems? Question Answer Date of Assessment Author Status Feeling nervous, anxious, or on edge 0 07/15/2023 7:44 AM Kayla Walters MA Ac tive Not being able to stop or control worrying 0 07/15/2023 7:44 AM Kayla Walters MA A ctive Worrying too much about different things 0 07/15/2023 7:44 AM Kayla Walters MA A ctive Trouble relaxing 0 07/15/2023 7:44 AM CDT Kayla Acevedo MA Active Being so restless that it is hard to sit still 0 07/15/2023 7:44 AM Kayla Walters MA Active Becoming easily annoyed or irritable 0 07/15/2023 7:44 AM CDKayla Willams MA Ac tive Feeling afraid as if something awful might happen 0 07/15/2023 7:44 AM Kayla Walters MA Ac tive VALENTÍN-7 Total Score 0 07/15/2023 7:44 AM CDT Kayla Escobedo MA Active * [place] Suicide Severity Rating Scale (Screener/Recent Self-Report) Question Answer Date of Assessment Author Status 1. Wish to be (Past 1 Month) No 07/15/2023 8:06 AM CDT Kavita Theodore MD Active 2. Non-Specific Active Suici brie Thoughts (Past 1 Month) No 07/15/2023 8:06 AM CDT Kavita Theodore MD Active 6. Suicidal Behavior (Lifetime) No 07/15/2023 8:06 AM CDT Kavita Theodore MD Active documented as of this encounter Plan of Treatment Upcoming Encounters Date Type Department Care Team (Late st Contact Info) Description 01/21/2025 7:20 AM ZIPPER SETTER LOCKSTITCH Office Visit [facility] Group Multispecialty Care - [address] [address] [address] [place] [address] Kavita Theodore MD [address] [place] [address] 05/21/2025 7:00 AM CDT Appointment [facility] [address] [facility] [place] [address] Jose Haynes DO [address] [facility] [address] [place] [address] 07/26/2025 9:30 AM CDT Office Visit [facility] [address] Mark Foss MD Three [facility] [address] [place] [address] 07/30/2025 8:30 AM CDT Appointment [facility] [address] [facility] [place] [address] Baldemar Warren MD [address] [facility] [address] [place] [address] 08/06/2025 10:20 AM CDT Office Visit [facility] Medical Group Multispecialty Care - [facility] [address] [place] [address] Jose Haynes DO 3 [facility] [address] [place] [address] 08/12/2025 9:00 AM CDT Office Visit [facility] [address] [place] [place] [address] Baldemar Warren MD [address] [facility] [address] [place] [address] documented as of this encounter Visit Diagnoses Not on filedocumented in this encounter Additional Health Concerns Assessment Noted Time PHQ-9 Depression Total Score: 0 06/28/19 24 2:55 PM CDT documented as of this encounter Care Teams Etcher Machine Relationship Specialty Start Date End Date Kavita Theodore MD 1188 [facility] [address] [place] [address] PCP - General INTERNAL MEDICINE 01/12/22 documented as of this encounter
--- OUTSIDE RECORDS SUMMARY | 2024-11-28 09:29 | XMS_ITS | Encounter Summary ---
Author Organization [facility] - [facility] Address [address] [place] [address] Care Team Providers Care Rn Resource Nurse Name Role Phone Kavita Theodore MD Primary Care Provider [phone] Encounter Details Date Type Department Care Team (Late st Contact Info) Description 10/23/2022 MyChart Message Enc [facility] Medical Group Multispecialty Care - [place] [address] [place] [address] 157 [address] [place] [address] [place] [address] [place] [address] 157 [place], [place] [id number] PET scan Social History Tobacco Use Types Packs/Day Years [...] AM CDT Legal Sex Female 9:37 AM DIRECTOR OF SLOT OPERATIONS Gender Identity Female 07/17/2024 2:20 PM CDT Sexual Orientation Straight 07/17/2024 2: 20 PM CDT 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 on file Not [...] PM CDT Kayla Escobedo MA Active * [place] Suicide Severity Rating Scale (Screener/Recent Self-Report) Question [...] st Contact Info) Description 01/21/2025 7:20 AM DIRECTOR OF SLOT OPERATIONS Office Visit [facility] Group Multispecialty Care - [place] [address] [address] [address] [place] [address] Kavita Theodore MD [address] [place] [address] 05/21/2025 7:00 AM CDT Appointment [place] [place] [address] Jose Haynes DO [address] [facility] [address] [place] [address] 07/26/2025 9:30 AM CDT Office Visit [facility] [address] Mark Foss MD [address] [facility] [address] [place] [address] 07/30/2025 8:30 AM CDT Appointment [place] [place] [address] Baldemar Warren MD 3 [facility] [address] [place] [address] 08/06/2025 10:20 AM CDT Office Visit [facility] Medical Group Multispecialty Care - [facility] [address] [place] [address] Jose Haynes DO 3 [facility] [address] [place] [address] 08/12/2025 9:00 AM CDT Office Visit [facility] [address] [facility] [address] [place] [place] [address] Baldemar Warren MD 3 [facility] [address] [place] [address] documented as of this encounter Visit Diagnoses Not on filedocumented in this encounter Care Teams Rn Resource Nurse Relationship Specialty Start Date End Date Kavita Theodore MD 1188 [facility] [address] [place] [address] PCP - General INTERNAL MEDICINE 01/12/22 documented as of this encounter
--- OUTSIDE RECORDS SUMMARY | 2024-11-28 09:29 | XMS_ITS | Encounter Summary ---
Author Organization [facility] - [facility] Address [address] [place] [address] Care Team Providers Care Auto Body Repairman Name Role Phone Kavita Theodore MD Primary Care Provider [phone] Encounter Details Date Type Department Care Team (Late st Contact Info) Description 05/24/2022 MyChart Message Enc [facility] Medical Group Multispecialty Care - [place] [address] [facility] [address] [place] [address] [place] [address] [place] [address] 157 [place], [place] [id number] Escitalopram Social History Tobacco Use Types Packs/Day Years [...] AM CDT Legal Sex Female 9:37 AM MERCHANDISING CONSULTANT Gender Identity Female 07/17/2024 2:20 PM CDT [...] st Contact Info) Description 01/21/2025 7:20 AM MERCHANDISING CONSULTANT Office Visit [facility] - [address] [place] [address] Kavita Theodore MD [address] [place] [address] 157 [place] [address] 05/21/2025 7:00 AM CDT Appointment [facility] [address] [place] [address] Jose Haynes DO [address] [place] [address] 07/26/2025 9:30 AM CDT Office Visit [facility] [address] Mark Foss MD [address] [place] [address] 07/30/2025 8:30 AM CDT Appointment [facility] [address] [place] [address] Baldemar Warren MD [address] [place] [address] 08/06/2025 10:20 AM CDT Office Visit [facility] Multispecialty Care - [facility] [address] [place] [phone] Jose Haynes DO [address] [facility] [address] [place] [address] 08/12/2025 9:00 AM CDT Office Visit [facility] [address] [facility] [place] [place] [address] Baldemar Warren MD [address] [facility] [address] [facility] [place] [address] documented as of this encounter Visit Diagnoses Not on filedocumented in this encounter Care Teams Auto Body Repairman Relationship Specialty Start Date End Date Kavita Theodore MD [address] [facility] 157 [place] [address] PCP - General INTERNAL MEDICINE 01/12/22 documented as of this encounter
--- OUTSIDE RECORDS SUMMARY | 2024-11-28 09:29 | XMS_ITS | Encounter Summary ---
Author Organization [facility] - [facility] Address [address] [place] [address] Care Team Providers Care Senior Officer Name Role Phone Kavita Theodore MD Primary Care Provider [phone] Encounter Details Date Type Department Care Team (Late st Contact Info) Description 01/09/2023 Insurance Business Applicationst Message Enc [facility] Medical Group Multispecialty Care - [place] [address] [place] [address] 157 [address] [place] [address] [place] [address] [place] [address] 157 [place], [place] [id number] cold Social History Tobacco Use Types Packs/Day Years [...] CDT Legal Sex Female 9:37 AM SENIOR RESIDENT CARE DIRECTOR Gender Identity Female 07/17/2024 2:20 PM CDT Sexual Orientation Straight 07/17/2024 2: 20 PM CDT 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 OR RESIDENT CARE DIRECTOR documented in this encounter Plan of Treatment Upcoming Encounters Date Type Department Care Team (Late st Contact Info) Description 01/21/2025 7:20 AM SENIOR RESIDENT CARE DIRECTOR Office Visit [facility] Medical Group Multispecialty Care - [address] [place] [address] Kavita Theodore MD [address] [place] [address] 157 [place] [address] 05/21/2025 7:00 AM CDT Appointment [facility] [address] [facility] [place] [address] Jose Haynes DO [address] [place] [address] 07/26/2025 9:30 AM CDT Office Visit [facility] [place] [address] Mark Foss MD [address] [facility] [address] [place] [address] 07/30/2025 8:30 AM CDT Appointment [facility] [address] [facility] [place] [address] Baldemar Warren MD [address] [facility] [address] [place] [address] 08/06/2025 10:20 AM CDT Office Visit [facility] Medical Group Multispecialty Care - [facility] [address] [facility] [place] [address] Jose Haynes DO [address] [facility] [address] [place] [address] 08/12/2025 9:00 AM CDT Office Visit [facility] [facility] THREE [facility] [address] [place] [address] Baldemar Warren MD 3 [facility] [address] [place] [address] documented as of this encounter Visit Diagnoses Not on filedocumented in this encounter Care Teams Senior Officer Relationship Specialty Start Date End Date Kavita Theodore MD [address] [facility] [address] [place] [address] PCP - General INTERNAL MEDICINE 01/12/22 documented as of this encounter
--- OUTSIDE RECORDS SUMMARY | 2024-11-28 09:29 | XMS_ITS | Encounter Summary ---
Author Organization [facility] - [facility] Address [address] [place] [address] Care Team Providers Care Sales Mgr Name Role Phone Kavita Theodore MD Primary Care Provider [phone] Encounter Details Date Type Department Care Team (Late st Contact Info) Description 03/21/2022 MyChart Message Enc [facility] Medical Group Multispecialty Care - [place] [address] [facility] [address] [place] [address] Kavita Theodore MD [address] [facility] 157 [place], [place] [id number] CT scan results Social History Tobacco Use Types Packs/Day Years [...] AM CDT Legal Sex Female 9:37 AM LINE SUPPLY Gender Identity Female 07/17/2024 2:20 PM CDT Sexual Orientation Straight 07/17/2024 2: 20 PM CDT COVID-19 Exposure Response Date Recorded In the last 10 days, have yo u been in contact with someone who was confirmed or suspected to have Coronavirus/COVID-19? No / Unsure 03/20/2022 3:10 PM LINE SUPPLY documented as of this encounter Plan of Treatment Upcoming Encounters Date Type Department Care Team (Late st Contact Info) Description 01/21/2025 7:20 AM LINE SUPPLY Office Visit [facility] Medical Group Multispecialty Care - [place] [address] [address] [place] [address] Kavita Theodore MD [address] [facility] 157 [place] [address] 05/21/2025 7:00 AM CDT Appointment [facility] [place] [address] Jose Haynes DO [address] [facility] [address] [place] [address] 07/26/2025 9:30 AM CDT Office Visit [facility] [address] Mark Foss MD [address] [place] [address] 07/30/2025 8:30 AM CDT Appointment [facility] [place] [address] Baldemar [address] MD [address] [place] [address] 08/06/2025 10:20 AM CDT Office Visit [facility] Medical [facility] Multispecialty Care - [facility] [address] [place] [address] Jose Haynes DO 3 [facility] [address] [place] [address] 08/12/2025 9:00 AM CDT Office Visit [facility] THREE [facility] [place] [address] Baldemar Warren MD [address] [facility] [address] [place] [address] documented as of this encounter Visit Diagnoses Not on filedocumented in this encounter Care Teams Sales Mgr Relationship Specialty Start Date End Date Kavita Theodore MD [address] [facility] [address] [place] [address] PCP - General INTERNAL MEDICINE 01/12/22 documented as of this encounter
--- OUTSIDE RECORDS SUMMARY | 2024-11-28 09:29 | XMS_ITS | Clinical Summary ---
Author Organization [facility] Address [address] [place] [address] Care Team Providers Care Laboratory Worker Name Role Phone Kavita Theodore MD Primary Care Provider [phone] Allergies Active Allergy Reactions Criticality Noted Date Comments Dander Hives,Rash,Itching Low 2022 CATERPILLERS Lisinopril Cough 03/18/2023 Penicillins Hives High 09/21/2019 Medications vitamin D3, cholecalciferol, 25 MCG (1000 UT) capsule Take 10 capsules (10,000 Units total) by mouth daily. Active Calcium Citrate 1040 MG Tab Take 600 mg by mouth 2 (two) times a day. Active aspirin EC (ECOTRIN) 81 MG tablet Take 1 tablet (81 mg total) by mouth every other day. Active Coenzyme Q10 (COQ10 OR) Take by mouth daily. Active Probiotic Product (PROBIOTIC OR) Take by mouth daily. Active GREY GOODS MARKER THYROID OR Take 2.58 m by mouth daily. Active NON FORMULARY Take by mouth daily. Ansley Shankar Active testosterone vaginal cream Place vaginally every morning. 35mg/ml 4 Active rosuvastatin (CRESTOR) 10 MG tabletIndication s:Aneurysm of ascending aorta without rupture,Dyslipid emia Take 1 tablet (10 mg total) by mouth nightly at bedtime. at bedtime 90 tablet 1 4 Active Additional Information Patient not taking.Reported on 08/13/2024 estradiol (ESTRACE) 2 MG tablet Take 1 tablet (2 mg total) by mouth daily. Active Magnesium (MAGNESIUM COMPLEX HIGH POTENCY) 250 MG Cap Active escitalopram (LEXAPRO) 5 MG tabletIndication s:VALENTÍN (generalized anxiety disorder) Take 1 tablet (5 mg total) by mouth nightly at bedtime. at bedtime 90 tablet 1 5 Active metoprolol succinate ER (TOPROL-XL) 25 MG 24 hr tabletIndication s:Aneurysm of ascending aorta without rupture,Essentia l (primary) hypertension Take 1 tablet (25 mg total) by mouth daily. 30 tablet 11 5 Active pantoprazole EC (PROTONIX) 40 MG tabletIndication s:Dozier's esophagus without dysplasia,Gastro esophageal reflux disease with esophagitis without hemorrhage Take 1 tablet (40 mg total) by mouth daily. 90 tablet 3 5 07/15/19 26 Active valACYclovir (VALTREX) 1 g tabletIndication s:HSV-2 (herpes simplex virus 2) infection Take 1 tablet (1,000 mg total) by mouth daily as needed. 30 tablet 5 Active progesterone (PROMETRIUM) 100 MG capsule Take 6 capsules (600 mg total) by mouth daily. Active Active Problems Problem Noted Date Diagnosed Date Calcification of coronary artery 01/20/2024 Gastroesophageal reflux dise ase with esophagitis without hemorrhage 01/20/2024 Essential (primary) hypertension 01/20/2024 Dysphagia, unspecified type 06/28/2023 Hx of colonic polyps 06/28/2023 Solitary lung nodule 03/22/2022 Aortic aneurysm without rupture 03/22/2022 VALENTÍN (generalized anxiety disorder) 01/12/2022 History of pulmonary embolism 01/12/2022 Vitamin D deficiency 01/12/2022 History of tobacco use 01/12/2022 Allergy 01/12/2022 Primary osteoarthritis of both hips 01/12/2022 Postmenopausal 01/12/2022 Resolved Problems Problem Noted Date Diagnosed Date Resolved Date Encounter for screening colonoscopy 06/28/2023 07/08/2023 Encounter for screening colonoscopy 06/28/2023 08/19/2023 Encounter for screening colonoscopy 06/28/2023 08/26/2023 Vitamin B12 deficiency 01/12/202202/14 Encounters Date Type Department Care Team Description 11/09/2024 Scan HEALTH INFO SRVCS Scanned, Doc Med Group Mammogram (SCAN) from Last 3 Months Immunizations Immunization Administration Dates Next Due Influenza (Generic) 11/12/2015,11/17/2014,2013 Influenza Adult (Generic) 11/19/2024,11/2022,11/28/2021,2020,11/16/2019,12/22/2018,11/28/2017,1 PFIZER COVID-19 BIVALENT (12 +) mRNA, LNP-S, PF, 30 MCG/0.3 ML DOSE 11/30/2022 Pneumococcal (Pneumovax 23) 12/16/2019 Pneumococcal (Prevnar 13) 06/20/2022 Shingrix 11/04/2021,08/16/2021 Tdap (Generic) 06/23/2018,02/11/2007 Family History Medical History Relation Comments CABG Father CHF Father Cancer Father Colon Cancer Father Coronary artery disease Father Diabetes Father Heart Attack Father Heart Disease Father Hyperlipidemia Father Hypertension Father Kidney failure Father Thyroid Disease Father Heart murmur Maternal Grandfather Leukemia Maternal Grandfather AZ Maternal Grandfather Arthritis Maternal Grandmother CHF Maternal Grandmother Arthritis Mother Hypertension Mother Valve Disease Mother Vision loss Mother macular degenera tion Heart Attack Paternal Grandfather Arthritis Sister 1 Asthma Sister 1 Depression Sister 1 Diabetes Sister 1 Mental Health Sister 1 Thyroid Disease Sister 1 Arthritis Sister 2 Defects Sister 2 born with one ki dney Cancer Sister 2 Depression Sister 2 Kidney Disease Sister 2 Mental Health Sister 2 Single kidney Sister 2 Skin cancer Sister 2 scalp Cancer Sister 3 Cardiac Ablation Sister 3 unclear if PVC or SVT Skin cancer Sister 3 Relation Status Comments Father (Age 76) Maternal Grandfather Maternal Grandmother Mother Alive Paternal Grandfather Paternal Grandmother Sister 1 Alive Sister 2 Alive Sister 3 Alive Social History Tobacco Use Types Packs/Day Years Used Date Smoking Tobacco: Former Cigarettes 1 25 0 03/14/1988 - 03/27/2013 Smokeless Tobacco: Never Tobacco Cessation:Counseling Given: Yes Comments:Counseled by Dr Theodore Alcohol Use Standard Drinks/Week Comments Not Currently [...] AM CDT Legal Sex Female 9:37 AM PODIATRIC MEDICINE PROFESSOR Gender Identity Female 07/17/2024 2:20 PM CDT Sexual Orientation Straight 07/17/2024 2: 20 PM CDT 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 Not on file Not on file Last Filed Vital Signs Vital Sign Reading Time Taken Comments Blood Pressure 104/70 08/13/2024 12:09 PM CDT Pulse 88 08/13/2024 12:09 PM CDT Temperature 36.7 C (98 F) 08/13/2024 12:09 PM CDT Respiratory Rate 18 08/13/2024 12:0 9 PM CDT Oxygen Saturation 98% 08/13/2024 12: 09 PM CDT Inhaled Oxygen Concentration - - Weight 73.8 kg (162 lb 11.2 oz) 025 12:09 PM CDT Height 167.6 cm (5' 6) 08/13/2024 12:0 9 PM CDT Body Mass Index 26.26 08/13/2024 12:09 PM CDT Plan of Treatment Upcoming Encounters Date Type Department Care Team (Late st Contact Info) Description 01/21/2025 7:20 AM PODIATRIC MEDICINE PROFESSOR Office Visit [facility] Medical Group Multispecialty Care - [place] [address] [address] [place] [address] [place] [address] [place] [address] 157 [place] [address] 05/21/2025 7:[address] [place] [facility] [address] [facility] [place] [address] Fior Daniels DO [address] [facility] [address] [place] [address] 07/26/2025 9:30 AM CDT Office Visit [facility] [address] [place] [address] Mark Foss MD [address] [place] [address] 07/30/2025 8:30 AM CDT Appointment [facility] [address] [facility] [place] [address] Baldemar Warren MD [address] [facility] [address] [place] [address] 08/06/2025 10:20 AM CDT Office Visit [facility] Medical Group Multispecialty Care - [facility] [address] [facility] [address] [place] [address] Fior Daniels DO [address] [facility] [address] [place] [address] 08/12/2025 9:00 AM CDT Office Visit [facility] [address] [facility] [facility] [address] [place] [place] [address] Baldemar Warren MD [address] [facility] [address] [place] [address] Health Maintenance Due Date Last Done Comments Cervical Cancer Screening Pap Smear (Age 30 to 64) Every 3 Years 1966 Hepatitis B Vaccines (1 of 3 - 19+ 3-dose series) 1985 PHQ-2 (Physician [place]) 02/12/2024 01/20/2024 Annual Physical 01/19/2025 01/20/2024, 06/2022, 01/12/2022 Lung Cancer Screening 05/15/2025 05/15/2024 , 05/16/2023, 03/20/2022 Cervical Cancer Screening Pap with HPV Testing (Age 30 to 64) Every 5 Years 11/01/2026 11/01/2021 Cervical Cancer Screening with HPV 11/01/2026 Mammogram Screening 11/09/2026 11/09/2024, 11/08/2023, 10/26/2022, Additional history exists Pneumococcal Vaccine: 50+ Years (3 of 3 - PCV20 or PCV21) 06/21/2027 06/20/2022, 12/16/2019 DTaP, Tdap and Td Vaccines (3 - Td or Tdap) 06/23/2028 06/23/2018, 02/11/2007 Colorectal Cancer Screening Colonoscopy (10 Years) 08/22/2033 08/23/2023, 06/06/2018, 03/16/2011 Zoster Vaccines Completed 11/04/2021, 08/16/2021 Hepatitis C Completed 01/17/2022, 01/12/2022 COVID-19 Vaccine Completed 11/22/2023, , 11/25/2021, Additional history exists Influenza Adult Completed 11/19/2024, 11/11, 11/28/2021, Additional history exists Hepatitis A Vaccines Aged Out No long er eligible based on patient's age to complete this topic Meningococcal B Vaccine Aged Out No l onger eligible based on patient's age to complete this topic Meningococcal Vaccine Aged Out No carrie shyla eligible based on patient's age to complete this topic RSV Immunizations Under 20 Months Aged Out No longer eligible based on patient's age to complete this topic Procedures Procedure Name Priority Date/Time Associated Diagnosis Comments MAMMOGRAM GENERIC (SCAN ORDER) 11/09/2024 CT CHEST WO CON Routine 05/15/2024 8:11 AM CDT Lung nodule HEPATITIS C ANTIBODY W/RFX TO HCV RNA Routine 01/17/2022 7:21 AM PODIATRIC MEDICINE PROFESSOR OUTSIDE CYTOPATH CERV/VAG INTERPRET (PAP) 11/01/2021 COLONOSCOPY GENERIC (SCAN ORDER) 06/06/2018 from Last 3 Months or Most Recently Relevant to Health Maintenance Results * MAMMOGRAM GENERIC (SCAN ORDER) (11/09/2024) Anatomical Region Laterality Modality Other 11/09/2024 [facility] Doc [facility] Scanned SCANNING Final Resu lt * CT CHEST WO CON (05/15/2024 8:11 AM CDT) Anatomical Region Laterality Modality Chest Computed Tomogra phy 05/22/2024 12:2 9 PM CDT Impressions 05/22/2024 12:35 PM CDT Impression: 1. Greater than two-year stability of the right posterior lower lobe 1.0 x 1.2 cm pleural-based nodular opacity as well as of a right lower lobe 2 mm micronodule. 2. No acute or other significant cardiopulmonary noncontrast thoracic CT imaging finding. Ordered By: FIOR DANIELS Interpreted By: Faheem Chowdary MD, 05/22/2024 12:29 PM Narrative 05/22/2024 12:35 PM CDT [address] [address] Exam: CT CHEST WO CON Exam Date/Time: 05/15/2024 8:04 AM Indication: 58 female. Pulmonary nodule follow-up. Comparison: CT chest 05/16/2023, PET/CT 11/13/2022; CTA chest 06/27/2022, CT lung screening to 720 3P Technique: Computed tomography of the chest performed without contrast. A dose lowering technique was used for this procedure, which may include, but is not limited to, dose reduction technique, automated exposure control, the use of iterative reconstruction, and ALARA (As Low As Reasonably Achievable) / Image Gently techniques.. CT findings: Support tubes and lines: None. Base of neck/thyroid: Negative. MEDIASTINUM: Heart: Normal in size. No pericardial effusion. Lymph nodes: No supraclavicular, axillary, internal mammary, mediastinal, or hilar adenopathy. VASCULATURE The thoracic aorta is normal in caliber. The main pulmonary artery appears normal in caliber. LUNGS AND PLEURA Lungs: Right posterior lung base stable 1.0 x 1.2 cm pleural-based nodular opacity with surrounding faint density, unchanged from multiple prior studies. This demonstrated mild hypermetabolism on PET/CT. Additional 2 mm right lower lobe stable pulmonary micronodule. No additional new or progressive nodules. No other focal or diffuse airspace findings. Airways are clear and unremarkable. No bronchiectasis wall thickening or mucous plugging Pleura: No pleural effusion, thickening, or calcification. UPPER ABDOMEN Stable unremarkable unenhanced upper abdomen BONES/SOFT TISSUES Multilevel thoracic spine ventral endplate minor degenerative spurring. No concerning focal lytic or blastic lesion Procedure Note Faheem Chowdary MD - 05/22/[address] [address] Exam: CT CHEST WO CON Exam Date/Time: 05/15/2024 8:04 AM Indication: 58 female. Pulmonary nodule follow-up. Comparison: CT chest 05/16/2023, PET/CT 11/13/2022; CTA chest 06/27/2022, CTlung screening to 720 3P Technique: Computed tomography of the chest performed without contrast. Adose lowering technique was used for this procedure, which may include,but is not limited to, dose reduction technique, automated exposurecontrol, the use of iterative reconstruction, and ALARA (As Low AsReasonably Achievable) / Image Gently techniques.. CT findings: Support tubes and lines: None. Base of neck/thyroid: Negative. MEDIASTINUM: Heart: Normal in size. No pericardial effusion. Lymph nodes: No supraclavicular, axillary, internal mammary, mediastinal,or hilar adenopathy. VASCULATURE The thoracic aorta is normal in caliber. The main pulmonary artery appearsnormal in caliber. LUNGS AND PLEURA Lungs: Right posterior lung base stable 1.0 x 1.2 cm pleural-based nodularopacity with surrounding faint density, unchanged from multiple priorstudies. This demonstrated mild hypermetabolism on PET/CT. Additional 2 mmright lower lobe stable pulmonary micronodule. No additional new orprogressive nodules. No other focal or diffuse airspace findings. Airways are clear and unremarkable. No bronchiectasis wall thickening ormucous plugging Pleura: No pleural effusion, thickening, or calcification. UPPER ABDOMEN Stable unremarkable unenhanced upper abdomen BONES/SOFT TISSUES Multilevel thoracic spine ventral endplate minor degenerative spurring. Noconcerning focal lytic or blastic lesion Impression: 1. Greater than two-year stability of the right posterior lower lobe 1.0 x1.2 cm pleural-based nodular opacity as well as of a right lower lobe 2 mmmicronodule. 2. No acute or other significant cardiopulmonary noncontrast thoracic CTimaging finding. Ordered By: FIOR DANIELS Interpreted By: Faheem Chowdary MD, 05/22/2024 12:29 PM Fior Daniels DO CT Final Resu lt * HEPATITIS C ANTIBODY W/RFX TO HCV RNA (01/17/2022 7:21 AM PODIATRIC MEDICINE PROFESSOR) HEPATITIS C AB NON-REACT LATONIA NON-REACT LATONIA Appointedd [facility] SIGNAL TO CUTOFF 0.07 <1.00 Appointedd [facility] Comment: HCV antibody was non-reactive. There is no laboratory evidence of HCV infection. In most cases, no further action is required. However, if recent HCV exposure is suspected, a test for HCV RNA (test code 51376) is suggested. For additional information please refer to http://education.[employer]/faq/MGI71v2 (This link is being provided for informational/ educational purposes only.) 01/17/2022 7:21 AM PODIATRIC MEDICINE PROFESSOR 01/17/2022 7:22 AM PODIATRIC MEDICINE PROFESSOR Narrative Resulting Agency Comment Performing Organization Information: Site ID: [place] Name: [facility] Address: [address] [id number] Director: Pavan Balderrama D.O., MPH Kavita Theodore MD LABORATORY Final Result [facility] [place] [address] [address], [place] * PAP SMEAR WITH HPV (11/01/2021) 11/01/2021 [facility] Scanned SCANNING Final Resu lt * COLONOSCOPY GENERIC (06/06/2018) 06/06/2018 [facility] Scanned SCANNING Final Resu lt from Last 3 Months or Most Recently Relevant to Health Maintenance Insurance [employer] Care Teams Laboratory Worker Relationship Specialty Start Date End Date Kavita Theodore MD [address] [facility] [address] [place] [address] PCP - General INTERNAL MEDICINE 01/12/22
--- OUTSIDE RECORDS SUMMARY | 2024-11-28 09:29 | XMS_ITS | Encounter Summary ---
Author Organization [facility] - [facility] Address [address] [place] [address] Care Team Providers Care Solar Engineer Name Role Phone Kavita Theodore MD Primary Care Provider [phone] Encounter Details Date Type Department Care Team (Late st Contact Info) Description 04/11/2023 [email or web address] Message Enc [facility] Medical Group Multispecialty Care - [place] [address] [place] [address] [address] [place] [address] [place] [address] [place] [address] 157 [place], [place] [id number] colonoscopy Social History Tobacco Use Types Packs/Day [...] AM CDT Legal Sex Female 9:37 AM CONVERTING OPERATOR Gender Identity Female 07/17/2024 2:20 PM CDT Sexual Orientation Straight 07/17/2024 2: 20 PM CDT 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 Not on file Not on file documented as of this encounter Plan of Treatment Upcoming Encounters Date Type Department Care Team (Late st Contact Info) Description 01/21/2025 7:20 AM CONVERTING OPERATOR Office Visit [facility] Medical [facility] Multispecialty Care - [place] [address] [address] [place] [address] Kavita Theodore MD [address] [facility] [address] [place] [address] 05/21/2025 7:00 AM CDT Appointment [facility] [address] [place] [address] Jose Haynes DO [address] [place] [address] 07/26/2025 9:30 AM CDT Office Visit [facility] [address] Mark Foss MD [address] [place] [address] 07/30/2025 8:30 AM CDT Appointment [facility] [address] [place] [address] Baldemar Warren MD [address] [place] [address] 08/06/2025 10:20 AM CDT Office Visit [facility] Medical [facility]ty [facility] [address] [place] [address] Jose Haynes DO [address] [place] [address] 08/12/2025 9:00 AM CDT Office Visit [facility] THREE [facility] [place] [address] Baldemar Warren MD 3 [facility] [address] [place] [address] documented as of this encounter Visit Diagnoses Not on filedocumented in this encounter Additional Health Concerns Assessment Noted Time PHQ-9 Depression Total Score: 0 01/16/20 23 7:42 AM CONVERTING OPERATOR documented as of this encounter Care Teams Solar Engineer Relationship Specialty Start Date End Date Kavita Theodore MD [address] [facility] [address] [place] [address] PCP - General INTERNAL MEDICINE 01/12/22 documented as of this encounter
--- OUTSIDE RECORDS SUMMARY | 2024-11-28 09:29 | XMS_ITS | Encounter Summary ---
Author Organization [facility] - [facility] Address [address] [place] [address] Care Team Providers Care Horticulturalist Name Role Phone Kavita Theodore MD Primary Care Provider [phone] Encounter Details Date Type Department Care Team (Latest Contact Info) Description 09/17/2022 MyChart Message Enc [facility] Medical Group Multispecialty Care - [place] 118[address] [facility] [address] [place] [address] Kavita Theodore MD 118[address] [facility] 157 [place], [place] [phone] nodule in right lung Social History Tobacco Use Types Packs/Day Years [...] AM CDT Legal Sex Female 9:37 AM FUR STORAGE CLERK Gender Identity Female 07/17/2024 2:20 PM CDT Sexual Orientation Straight 07/17/2024 2: 20 PM CDT 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 Not on file Not on file documented as of this encounter Plan of Treatment Upcoming Encounters Date Type Department Care Team (Late st Contact Info) Description 01/21/2025 7:20 AM FUR STORAGE CLERK Office Visit [facility] Medical [facility] Multispecialty Care - [place] [address] [address] [place] [address] Kavita Theodore MD [address] [facility] 157 [place] [address] 05/21/2025 7:00 AM CDT Appointment [facility] [address] [place] [address] Jose Haynes DO [address] [place] [address] 07/26/2025 9:30 AM CDT Office Visit [facility] [address] Mark Foss MD [address] [place] [address] 07/30/2025 8:30 AM CDT Appointment [facility] [address] [place] [address] Baldemar Warren MD [address] [place] [address] 08/06/2025 10:20 AM CDT Office Visit [facility] Medical [facility] Multispecialty Care - [facility] [address] [place] [address] Jose Haynes DO [address] [place] [address] 08/12/2025 9:00 AM CDT Office Visit [facility] [address] [address] [place] [address] Baldemar Warren MD 3 [facility] [address] [place] [address] documented as of this encounter Visit Diagnoses Not on filedocumented in this encounter Care Teams Horticulturalist Relationship Specialty Start Date End Date Kavita Theodore MD [address] [facility] [address] [place] [address] PCP - General INTERNAL MEDICINE 01/12/22 documented as of this encounter
--- OUTSIDE RECORDS SUMMARY | 2024-11-28 09:29 | XMS_ITS | Encounter Summary ---
Author Organization [facility] - [facility] Address [facility]ly [facility] [place] [address] Care Team Providers Care Store Operations Manager Name Role Phone Kavita Theodore MD Primary Care Provider [phone] Encounter Details Date Type Department Care Team (Late st Contact Info) Description 04/13/2022 MyChart Message Enc [facility] Medical Group Multispecialty Care - [place] 118[address] [facility] 157 [address] [place] [address] Kavita Theodore MD 1188 [facility] 157 [place], [place] [phone] CT Scan Social History Tobacco Use Types Packs/Day Years [...] AM CDT Legal Sex Female 9:37 AM CITY COLLECTOR Gender Identity Female 07/17/2024 2:20 PM CDT Sexual Orientation Straight 07/17/2024 2: 20 PM CDT COVID-19 Exposure Response Date Recorded In the last 10 days, have yo u been in contact with someone who was confirmed or suspected to have Coronavirus/COVID-19? No / Unsure 03/20/2022 3:10 PM CITY COLLECTOR documented as of this encounter Plan of Treatment Upcoming Encounters Date Type Department Care Team (Late st Contact Info) Description 01/21/2025 7:20 AM CITY COLLECTOR Office Visit [facility] [place] [address] [address] [place] [address] Kavita Theodore MD [facility] 157 [place] [address] 05/21/2025 7:00 AM CDT Appointment [facility] [address] [place] [address] Jose Haynes DO [address] [place] [address] 07/26/2025 9:30 AM CDT Office Visit [facility] [address] Mark Foss MD [address] [place] [address] 07/30/2025 8:30 AM CDT Appointment [facility] [address] [place] [address] Baldemar Warren MD [address] [place] [address] 08/06/2025 10:20 AM CDT Office Visit [facility] Medical [facility] Multispecialty Care - [facility]'s [address] [place] [address] Jose Haynes DO [address] [facility] [address] [place] [address] 08/12/2025 9:00 AM CDT Office Visit [facility] THREE [facility] [address] [place] [address] Baldemar Warren MD 3 [facility] [address] [place] [address] documented as of this encounter Visit Diagnoses Not on filedocumented in this encounter Care Teams Store Operations Manager Relationship Specialty Start Date End Date Kavita Theodore MD [address] [facility] [address] [place] [address] PCP - General INTERNAL MEDICINE 01/12/22 documented as of this encounter
--- OUTSIDE RECORDS SUMMARY | 2024-11-28 09:29 | XMS_ITS | Encounter Summary ---
Author Organization [facility] Address [address] [facility] [place] [address] Care Team Providers Care Utilization Engineer Name Role Phone Unavailable Primary Care Provider Unavailabl e Encounter Details Date Type Department Care Team (Late st Contact Info) Description 03/17/2024 Lab Requisition [facility] - DermPath Lab [address] [place] [address] Luís Poon MD [facility] D[facility] [address] [place] [phone] Neoplasm of uncertain behavior of skin Social History Tobacco Use Types Packs/Day Years Used Date Smoking Tobacco: Never Assessed Comments Unknown Sex and Gender Information Value Date Recorded Sex Assigned at Not on file Legal Sex Female 3:26 PM HOME HEALTH CARE COORDINATOR Gender Identity Not on file Sexual Orientation Not on file documented as of this encounter Plan of Treatment Not on file documented as of this encounter Procedures Procedure Name Priority Date/Time Associated Diagnosis Comments DERMATOPATHOLOGY Routine 03/17/2024 9:01 AM HOME HEALTH CARE COORDINATOR Neoplasm of uncertain behavior of skin documented in this encounter Results * DERMATOPATHOLOGY (03/17/2024 9:01 AM HOME HEALTH CARE COORDINATOR) Case Report Dermatopathology Report Case: [id number] Authorizing Provider: Luís Poon MD Collected: 03/17/2024 09:01 AM Ordering Location: [facility] - Received: 03/19/2024 02:00 PM DermPath Lab Pathologist: Jessica Lopez MD Specimen: Skin, right shoulder 2:18 PM HOME HEALTH CARE COORDINATOR DERMATOPATHOLOGY LABORATORY Final Diagnosis Specimen A. SKIN, right shoulder: SEBORRHEIC KERATOSIS, IRRITATED AND INFLAMED (L82.0) 2:18 PM [facility] DERMATOPATHOLOGY LABORATORY at [address] HOME HEALTH CARE COORDINATOR Clinical History BCC vs Irritated Seborrheic Keratosis 2:18 PM [facility] DERMATOPATHOLOGY LABORATORY Gross Description Specimen A: Received is one formalin filled container labeled with the patient's name and designated right shoulder. The specimen consists of a shave biopsy measuring 8x7x2 mm. Jar 0. 2:18 PM [facility] DERMATOPATHOLOGY LABORATORY Microscopic Description Specimen A. SKIN, right shoulder: Sections show acanthosis, papillomatosis, hyperkeratosis, and squamous eddies. There is a lymphohistiocytic infiltrate within the papillary dermis. 2:18 PM [facility] DERMATOPATHOLOGY LABORATORY Disclaimer An external and internal positive and negative controls are appropriate for the histochemical, immunohistochemical and immunofluorescence stain(s) in this case (if any), except where stated explicitly. The performance characteristics of the stain(s) cited in this report were developed and its performance characteristic determined by the Dermatopathology Laboratory at [facility], directed by Dr. Hortencia Robles. These tests need not be, and therefore are not, approved by the [place] Food and Drug Administration. The tests are used for clinical purposes. Billing Codes Specimen Charges Stain Charges 06502 1 2:18 PM [facility] DERMATOPATHOLOGY LABORATORY Embedded Images 2:18 PM [facility] DERMATOPATHOLOGY LABORATORY Pathology/Cytolo gy TISSUE SPECIMEN FROM SKIN / Unknown 03/17/2024 9:01 AM HOME HEALTH CARE COORDINATOR 03/19/2024 2:00 PM HOME HEALTH CARE COORDINATOR us Luís Poon MD LAB - PATHOLOGY/CYTOLOGY JONI GÓMEZ Final Result DERMATOPATHOLOGY LABORATORY [facility] - Department of Dermatology [address] [phone] documented in this encounter Visit Diagnoses Diagnosis Neoplasm of uncertain behavior of skin documented in this encounter
[2024-11-28 09:36] VITALS: BP 128/92; PULSE 87; RESP 18; TEMP 36.6; O2SAT 98
--- NOTE | 2024-11-28 09:54 | ED.GENADULT ---
HPI - General Adult General Chief complaint: Abdominal Pain Stated complaint: Constipation x1 week Time Seen by Provider: 11/28/24 09:31 History of Present Illness HPI narrative: 59-year-old female presented to the emergency department for evaluation for issues with constipation. Patient reports over the last 1.5 weeks she has had worsening constipation. Patient states she is able a passing saw amount stool gas. Patient reports she had previously been taking psyllium husk daily but stopped this once she became constipated as patient thought she was going to worsen her constipation. Patient did take a stool softener yesterday and did try a enema yesterday with no significant results. Patient does complain of intermittent abdominal cramping. Related Data Home Medications ?Medication ?Instructions ?Recorded ?Confirmed ?Last Taken ?Type testosterone 30 mg/actuation (1.5 1 pump topical DAILY 09/10/19 02/07/24 09/09/19 History mL) transderm solution metered pump calcium 600 mg (as cap PO 10/05/20 02/07/24 Unknown History carbonate)-vitamin D3 12.5 mcg (500 unit) capsule (Calcium with Vit D3) metoprolol succinate 25 mg mg PO 10/21/22 02/07/24 Unknown History tablet,extended release 24 hr aspirin 81 mg tablet,delayed 81 mg PO .every other 11/08/22 02/07/24 Unknown History release escitalopram oxalate 10 mg tablet 5 mg PO HS 11/08/22 02/07/24 Unknown History estradiol 0.01% (0.1 mg/gram) 4 g vaginal DAILY 11/08/22 02/07/24 Unknown History vaginal cream progesterone micronized 100 mg 100 mg PO QAM 12/04/23 02/07/24 Unknown History capsule rosuvastatin 10 mg tablet 10 mg PO DAILY 12/04/23 02/07/24 Unknown History thyroid (pork) 146.25 mg tablet 146.25 mg PO DAILY 12/04/23 02/07/24 Unknown History coenzyme Q10 10 mg capsule (Co 10 mg PO ONCE 02/07/24 02/07/24 Unknown History Q-10) cholecalciferol (vitamin D3) 25 25 mcg PO DAILY 03/13/24 Unknown History mcg (1,000 unit) capsule lions darion .Route 03/13/24 Unknown History Allergies Allergy/AdvReac Type Severity Reaction Status Date / Time Penicillins Allergy Intermediate Unknown Verified 03/13/24 10:17 Review of Systems Review of Systems: All systems reviewed & are unremarkable except as noted in HPI and below PMFSH Past Medical History Medical History Hemorrhoids History of abnormal cervical Pap smear History of pulmonary embolism Anxiety Vaginal delivery x 2 Surgical History Surgical History [place] teeth removed H/O LEEP Family History Family History Grandparent Family history of malignant neoplasm Family history of Alzheimer's disease Cerebrovascular accident Father Carcinoma of colon Family history of diabetes mellitus in first degree relative Diabetes mellitus Family history of hypercholesterolemia Hypertension Sibling Diabetes mellitus Family history of cardiovascular disease Other Family history of lymphoma Family history of malignant neoplasm of male breast Family history of pancreatic cancer Social History Social History Smoking status: Former smoker Smoking end date: 02/12/12 Alcohol intake: never Substance use: never Lack of Transportation: No Lack of Food: Never True Current Housing: I Have Housing Concerned About Future Housing: No Difficulty Paying Gas/Electric Bills: No Difficulty Paying for Meds: No Currently Unemployed: No Education: Grade School Difficulty w/ Childcare or Family Care: No Occupation/Education: occupation Gender identity (if verbalized by the patient): Female Sexual Orientation (if Verbalized by the Patient): Straight or Heterosexual Spiritual care concerns: No Exam Narrative: APPEARANCE: Well appearing, no pain, no distress, well-nourished. HEAD: normocephalic, atraumatic. EYES: PERRLA/EOMI, conjunctivae clear. NOSE: Normal no drainage EARS:TMS clear with good light reflex. THROAT: Pharynx clear, no exudate. NECK: Supple. No adenopathy, no masses. RESPIRATORY: Airway patent, respirations nonlabored. Clear to auscultation bilaterally, no rales, rhonchi, wheezing. CARDIOVASCULAR: Regular rate and rhythm without murmurs rubs or gallops. ABDOMINAL: Soft, nontender, nondistended, normal bowel sounds MUSCULOSKELETAL: Moves all extremities. Strength/ROM intact, No edema, No calf tenderness. NEURO: Alert. Cranial nerves II through XII intact. SKIN: Warm, dry. Normal Color Course Vital Signs Vital signs: Vital Signs Temperature 97.8 F 11/28/24 09:36 Pulse Rate 87 11/28/24 09:36 Respiratory Rate 18 11/28/24 09:36 Blood Pressure 128/92 H 11/28/24 09:36 Pulse Oximetry 98 11/28/24 09:36 Oxygen Delivery Room Air 11/28/24 09:36 Temperature 97.8 F 11/28/24 09:36 Pulse Rate 86 11/28/24 12:39 Respiratory Rate 15 11/28/24 12:39 Blood Pressure 125/86 11/28/24 12:39 Pulse Oximetry 100 11/28/24 12:39 Oxygen Delivery Room Air 11/28/24 09:36 Medical Decision Making MDM Narrative Medical decision making narrative: 59-year-old female presents to the emergency department for evaluation for constipation lower abdominal discomfort. Patient is afebrile and has a white count of 3.8 with hemoglobin of 13.5. INR 1.0. No acute abnormalities on her CMP patient's lipase was negative. CT scan showed no evidence of obstruction did show evidence of colitis. Patient was started on Augmentin advised to follow a clear liquid diet for the next 1-3 days. Patient is also provided Zofran for nausea control. All questions concerns were addressed patient was well-appearing at time of discharge. Differential Diagnosis Differential Diagnosis: Colitis, diverticulitis, ileus, small-bowel obstruction, constipation Vital Signs Vital Signs: Vital Signs Temperature 97.8 F 11/28/24 09:36 Pulse Rate 87 11/28/24 09:36 Respiratory Rate 18 11/28/24 09:36 Blood Pressure 128/92 H 11/28/24 09:36 Pulse Oximetry 98 11/28/24 09:36 Oxygen Delivery Room Air 11/28/24 09:36 Temperature 97.8 F 11/28/24 09:36 Pulse Rate 86 11/28/24 12:39 Respiratory Rate 15 11/28/24 12:39 Blood Pressure 125/86 11/28/24 12:39 Pulse Oximetry 100 11/28/24 12:39 Oxygen Delivery Room Air 11/28/24 09:36 Lab Data Lab results reviewed: Yes I reviewed the patient's lab results. 11/28/24 10:28 11/28/24 10:28 Labs: Lab Results 11/28/24 Range/Units 10:28 WBC 3.8 L (4.5-10.0) K/mm3 RBC 4.64 (4.2-5.4) M/mm3 Hgb 13.5 (12.0-15.0) g/dL Hct 40.6 (37.0-47.0) % MCV 87.5 (80-100) fl MCH 29.1 (26-34) pg MCHC 33.3 (32-36) g/dl RDW 12.5 (11.5-14.5) % Plt Count 262 (150-375) k/mm3 MPV 10.1 (7.4-10.4) fl Immature Gran % (Auto) 0.0 (0-0.5) % Neut % (Auto) 51.1 (45.5-73.1) % Lymph % (Auto) 28.9 (18.3-44.2) % [place] % (Auto) 16.4 H (2.6-8.5) % Eos % (Auto) 2.6 (0-4.4) % Baso % (Auto) 1.0 (0.2-1.2) % Lymph # (Auto) 1.11 (0.9-3.2) K/mm3 [place] # (Auto) 0.6 (0.1-0.6) K/mm3 Eos # (Auto) 0.1 (0-0.3) K/mm3 Baso # (Auto) 0.0 (0.0-0.1) K/mm3 Abs Immat Gran (auto) 0.00 (0.00-0.031) K/mm3 Absolute Neuts (auto) 2.0 (1.3-6.7) K/mm3 Absolute Nucleated RBC 0.000 (0.0-0.012) K/mm3 Nucleated RBC % 0.0 (0.0-0.2) % PT 12.9 (11.1-14.7) Seconds INR 1.0 APTT 24.9 (22.3-36.8) Seconds Sodium 138 (137-145) mmol/L Potassium 4.0 (3.4-5.0) mmol/L Chloride 106 (98-107) mmol/L Carbon Dioxide 25 (22-30) mmol/L Anion Gap 7 (4-12) mmol/L BUN 20 H (7-17) mg/dL Creatinine 0.90 (0.7-1.0) mg/dL Estim Creat Clear Calc 56 ml/min Estimated GFR > 60 (59 - ) Glucose 103 (65-110) mg/dL Calcium 8.9 (8.4-10.2) mg/dL Total Bilirubin 0.2 (0.2-1.3) mg/dL AST 24 (14-36) U/L ALT 23 (6-35) U/L Alkaline Phosphatase 51 (38-126) U/L Total Protein 6.7 (6.3-8.2) g/dL Albumin 3.8 (3.5-5.1) g/dL Lipase 111 (23-300) U/L Imaging Data Radiologist's impression: Impressions Abdomen/Pelvis CT 11/28/24 11:47 IMPRESSION: 1. Wall thickening of the rectosigmoid, consistent with colitis. Discharge Plan Discharge Clinical Impression: Colitis Patient Disposition: Home Condition: Stable Instructions: Antibiotic Form, Abdominal Pain (ED), Colitis (ED) Additional Instructions: Clear liquid diet for the next 1-3 days. Antibiotic as directed until completed. Bentyl as needed for abdominal spasms. Have close follow-up with your primary care physician. If you have any worsening symptoms then please call or return to the emergency department. Patient Language: Afghan Prescriptions: New metronidazole 500 mg tablet 500 mg PO Q12H 7 Days Qty: 14 0RF ciprofloxacin HCl [Cipro] 500 mg tablet 500 mg PO Q12H 7 Days Qty: 14 0RF ondansetron 4 mg tablet,disintegrating 4 mg PO Q8H PRN (Reason: nausea and vomiting) Qty: 14 0RF dicyclomine 10 mg capsule 10 mg PO BID Qty: 10 0RF No Action metoprolol succinate 25 mg tablet extended release 24 hr PO aspirin 81 mg tablet,delayed release (DR/EC) 81 mg PO .every other calcium carbonate-vitamin D3 [Calcium 600 with Vitamin D3] 600 mg(1,500mg) -500 unit capsule PO thyroid (pork) 146.25 mg tablet 146.25 mg PO DAILY rosuvastatin 10 mg tablet 10 mg PO DAILY progesterone micronized 100 mg capsule 100 mg PO QAM Rx Instructions: 600 mg po daily estradiol 0.01 % (0.1 mg/gram) cream 4 g vaginal DAILY Rx Instructions: for 7 days coenzyme Q10 [Co Q-10] 10 mg capsule 10 mg PO ONCE cholecalciferol (vitamin D3) 25 mcg (1,000 unit) capsule 25 mcg PO DAILY lions darion .Route Rx Instructions: as directed testosterone 30 mg/actuation (1.5 mL) Solution In Metered Pump W/Rubio 1 pump TOPICAL DAILY Rx Instructions: apply to labia escitalopram oxalate 10 mg tablet 5 mg PO HS Follow-up/Referrals: Arben,MD Kavita [Primary Care Provider, Unknown]
[2024-11-28 10:09] VITALS: BP 126/82; PULSE 74; O2SAT 96
[2024-11-28 10:33] LABS: Hematocrit 40.6 % (37.0-47.0); Hemoglobin 13.5 g/dL (12.0-15.0); Immature Granulocyte Percent A 0.0 % (0-0.5); Lymphocytes Absolute Auto 1.11 K/mm3 (0.9-3.2); Mean Corpuscular HGB Conc 33.3 g/dl (32-36); Mean Corpuscular Hemoglobin 29.1 pg (26-34); Mean Corpuscular Volume 87.5 fl (80-100); Nucleated Red Blood Cells Absolute Auto 0.000 K/mm3 (0.0-0.012); Nucleated Red Blood Cells Perc 0.0 % (0.0-0.2); Platelet Count Result 262 k/mm3 (150-375); Red Blood Count 4.64 M/mm3 (4.2-5.4); White Blood Count 3.8 K/mm3 (4.5-10.0)
[2024-11-28 10:45] LABS: INR 1.0; Partial Thromboplastin Time 24.9 Seconds (22.3-36.8); Prothrombin Time 12.9 Seconds (11.1-14.7)
[2024-11-28 10:53] LABS: Alanine Aminotransferase 23 U/L (6-35); Albumin Level 3.8 g/dL (3.5-5.1); Alkaline Phosphatase 51 U/L (38-126); Anion Gap 7 mmol/L (4-12); Aspartate Amino Transferase 24 U/L (14-36); Bilirubin,Total 0.2 mg/dL (0.2-1.3); Blood Urea Nitrogen 20 mg/dL (7-17); Calcium 8.9 mg/dL (8.4-10.2); Carbon Dioxide 25 mmol/L (22-30); Chloride 106 mmol/L (98-107); Estimated CRCL calculation 56 ml/min; Estimated Glomerular Filt Rate > 60; Glucose 103 mg/dL (65-110); Lipase 111 U/L (23-300); Potassium 4.0 mmol/L (3.4-5.0); Sodium 138 mmol/L (137-145); Total Protein 6.7 g/dL (6.3-8.2)
[2024-11-28] MEDS: DICYCLOMINE HCL 10 MG CAPSULE PO (12:09)
[2024-11-28] MEDS: CIPROFLOXACIN 500 MG TAB PO (12:09)
[2024-11-28 12:39] VITALS: BP 125/86; PULSE 86; RESP 15; O2SAT 100
== END 2024-11-28 12:42 | disposition home or self-care (01) ==
PROVIDERS: Emergency Provider Emergency Medicine; PCP Internal Medicine
DX: K52.9 Noninfective gastroenteritis and colitis, unspecified (principal); F41.9 Anxiety disorder, unspecified; Z86.711 Personal history of pulmonary embolism; Z87.891 Personal history of nicotine dependence
CPT/HCPCS: 36415; 74177; 80053; 83690; 85025; 85610; 85730; 99284; A9270; Q9967

== ENCOUNTER 2025-01-11 13:34 | Outpatient (CLI) | payer OTHER, SELFPAY ==
--- NOTE | ~2025-01-11 | US_ITS ---
PROCEDURE(S): US breast RT limited INDICATION(S): N63.12 - Unspecified palpable abnormality in the right breast, upper inner... COMPARISON(S): November 09 TECHNIQUE: Grayscale imaging FINDINGS: No cystic or solid masses are seen in the area(s) of concern. IMPRESSION: No mammographic evidence to suggest malignancy is seen. Negative or inconclusive breast imaging studies should not deter biopsy if there are clinically suspicious palpable abnormalities. The patient may return to screening as per ACR guidelines. BI-RADS 1 - Negative. Reviewed, dictated and finalized at location B. [employer] IMPRESSION: No mammographic evidence to suggest malignancy is seen. Negative or inconclusiv e breast imaging studies should not deter biopsy if there are clinically suspic ious palpable abnormalities. The patient may return to screening as per ACR gu idelines. BI-RADS 1 - Negative.
--- OUTSIDE RECORDS SUMMARY | 2025-01-11 14:40 | XMS_ITS | Encounter Summary ---
Author Organization [facility] Address [address] [place] [address] Care Team Providers Care Student Officer Name Role Phone Kavita Theodore MD Primary Care Provider [phone] Encounter Details Date Type Department Care Team (Late st Contact Info) Description 01/14/2023 Syncing.Net Message Enc [facility] [address] [place] [address] Mark Foss MD [facility], [address] [place] [address] Lab results from December Social History Tobacco Use Types Packs/Day Years [...] AM CDT Legal Sex Female 9:37 AM LOGGING EQUIPMENT MECHANIC Gender Identity Female 07/17/2024 2:20 PM CDT Sexual Orientation Straight 07/17/2024 2: 20 PM CDT 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 Question Answer Date of Assessment Author Status Little interest or pleasure in doing things Not at all 01/15/2023 7:42 AM Lucita Duran MA Act abelino Feeling down, depressed, or hopeless Not at all 01/15/2023 7:42 AM Lucita Duran MA Active Patient Health Questionnaire-2 Score 0 01/15/2023 7:42 AM Lucita Duran MA Active * Question Answer Date of Assessment Author Status Trouble falling or staying asleep, or sleeping too much Not at all 01/15/2023 7:42 AM Lucita Duran MA Active Feeling tired or having little energy Not at all 01/15/2023 7:42 AM Lucita Duran MA Active Poor appetite or overeating Not at all 01/15/2023 7:42 AM Lucita uDran MA Active Feeling bad about yourself - or that you are a failure or have let yourself or your family down Not at all 01/15/2023 7:42 AM Lucita Duran MA Active Trouble concentrating on things, such as reading the newspaper or watching television Not at all 01/15/2023 7:42 AM Lucita Duran MA Active Moving or speaking so slowly that other people could have noticed? Or the opposite - being so fidgety or restless that you have been moving around a lot more than usual. Not at all 01/15/2023 7:42 AM Lucita Duran MA Active Thoughts that you would be better off or hurting yourself in some way Not at all 01/15/2023 7:42 AM Lucita Duran MA Active Patient Health Questionnaire-9 Score 0 01/15/2023 7:42 AM Lucita Duran MA Active * If you checked off any problems on this questionnaire so far, Question Answer Date of Assessment Author Status How difficult have these problems made it for you to do your work, take care of things at home, or get along with other people? Not difficult at all 01/15/2023 7:42 AM LOGGING EQUIPMENT MECHANIC Lucita Skinner MA Active * Over the last 2 weeks, how often have you been bothered by any of the following problems? Question Answer Date of Assessment Author Status Feeling nervous, anxious, or on edge 0 01/15/2023 7:43 AM LOGGING EQUIPMENT MECHANIC Lucita Skinner MA Act abelino Not being able to stop or control worrying 0 01/15/2023 7:43 AM Lucita Duran MA Ac tive Worrying too much about different things 0 01/15/2023 7:43 AM Lucita Duran MA Ac tive Trouble relaxing 0 01/15/2023 7:43 AM LOGGING EQUIPMENT MECHANIC Lucita Hayes MA Active Being so restless that it is hard to sit still 0 01/15/2023 7:43 AM LOGGING EQUIPMENT MECHANIC Lucita Skinner M A Active Becoming easily annoyed or irritable 0 01/15/2023 7:43 AM Lucita Duran MA Act abelino Feeling afraid as if something awful might happen 0 01/15/2023 7:43 AM Lucita Duran MA Act abelino VALENTÍN-7 Total Score 0 01/15/2023 7:43 AM LOGGING EQUIPMENT MECHANIC Lucita Ward ms, MA Active documented as of this encounter Progress Notes * Natasha Reese RN - 01/14/2023 9:38 AM CST Lab results printed and given to lab voice and data technician. ING EQUIPMENT MECHANIC documented in this encounter Plan of Treatment Upcoming Encounters Date Type Department Care Team (Late st Contact Info) Description 01/21/2025 7:20 AM LOGGING EQUIPMENT MECHANIC Office Visit [facility] Multispecialty Care - [place] [address] [place] [address] Kavita Theodore MD [address] [place] [address] 07/26/2025 9:30 AM CDT Office Visit [facility] [address] Mark Foss MD [address] [place] [address] 07/30/2025 8:[address] [facility] [address] [place] [address] Baldemar Warren MD [address] [facility] [address] [place] [address] 08/06/2025 10:20 AM CDT Office Visit [facility] Multispecialty Care - [facility] [address] [facility] [address] [place] [address] Jose Haynes DO [address] [facility] [address] [place] [address] 08/12/2025 9:00 AM CDT Office Visit [facility] [address] [facility] [address] [address] [place] [address] Baldemar Warren MD [address] [place] [address] documented as of this encounter Visit Diagnoses Not on filedocumented in this encounter Care Teams Student Officer Relationship Specialty Start Date End Date Kavita Theodroe MD [address] [facility] [address] [place] [address] PCP - General INTERNAL MEDICINE 01/12/22 documented as of this encounter
--- OUTSIDE RECORDS SUMMARY | 2025-01-11 14:40 | XMS_ITS | Encounter Summary ---
Author Organization [facility] Address [address] [place] [address] Care Team Providers Care Mold Inspector Name Role Phone Kavita Theodore MD Primary Care Provider [phone] Encounter Details Date Type Department Care Team (Late st Contact Info) Description 11/29/2022 GoodBellyhart Message Enc [facility] Care - [place] [address] [place] [address] [address] [place] [address] [place] [address] [place] [address] [address] [place], [place] [id number] COVID vaccine Social History Tobacco Use Types [...] AM CDT Legal Sex Female 9:37 AM SIGNS CLEANER Gender Identity Female 07/17/2024 2:20 PM CDT Sexual Orientation Straight 07/17/2024 2: 20 PM CDT 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 Not on file Not on file documented as of this encounter Plan of Treatment Upcoming Encounters Date Type Department Care Team (Late st Contact Info) Description 01/21/2025 7:20 AM SIGNS CLEANER Office Visit [facility] Multispecialty Care - [address] [place] [address] Kavita Theodore MD [address] [facility] [address] [place] [address] 07/26/2025 9:30 AM CDT Office Visit [facility] [place] [address] Mark Foss MD [address] [place] [address] 07/30/2025 8:30 AM CDT Appointment [facility] [address] [place] [address] Baldemar Warren MD [address] [facility] [address] [place] [address] 08/06/2025 10:20 AM CDT Office Visit [facility]ialty [facility] [address] [place] [address] Jose Haynes DO [address] [place] [address] 08/12/2025 9:00 AM CDT Office Visit [facility] [address] [place] [address] Baldemar Warren MD [address] [place] [address] documented as of this encounter Visit Diagnoses Not on filedocumented in this encounter Care Teams Mold Inspector Relationship Specialty Start Date End Date Kavita Theodore MD [address] [facility] [address] [place] [address] PCP - General INTERNAL MEDICINE 01/12/22 documented as of this encounter
--- OUTSIDE RECORDS SUMMARY | 2025-01-11 14:41 | XMS_ITS | Encounter Summary ---
Author Organization [facility] Address [address] [place] [address] Care Team Providers Care Ham Sawyer Name Role Phone Kavita Theodore MD Primary Care Provider [phone] Encounter Details Date Type Department Care Team (Late st Contact Info) Description 04/13/2022 MyChart Message Enc [facility] Mult[facility]pecialty Care - [place] [address] 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 No / Unsure 03/20/2022 3:10 PM TEACHER EDUCATION INSTRUCTOR documented as of this encounter Plan of Treatment Upcoming Encounters Date Type Department Care Team (Late st Contact Info) Description 01/21/2025 7:20 AM TEACHER EDUCATION INSTRUCTOR Office Visit [facility] Multispecialty Care - [place] [address] [address] [address] [place] [address] Kavita Theodore MD [address] [facility] [address] [place] [address] 07/26/2025 9:30 AM CDT Office Visit [facility] [address] Mark Foss MD [address] [facility] [address] [place] [address] 07/30/2025 8:30 AM CDT Appointment [facility] [address] [facility] [address] Baldemar Warren MD [address] [facility] [place] [address] 08/06/2025 10:20 AM CDT Office Visit [facility] Multispecialty Care - [facility] [address] [place] [address] Jose Haynes DO [address] [place] [address] 08/12/2025 9:00 AM CDT Office Visit [facility] [address] [facility] [place] [address] Baldemar Warren MD 3 [facility] [address] [place] [address] documented as of this encounter Visit Diagnoses Not on filedocumented in this encounter Care Teams Ham Sawyer Relationship Specialty Start Date End Date Kavita Theodore MD [address] [facility] [address] [place] [address] PCP - General INTERNAL MEDICINE 01/12/22 documented as of this encounter
--- OUTSIDE RECORDS SUMMARY | 2025-01-11 14:41 | XMS_ITS | Encounter Summary ---
Author Organization [facility] Address [address] [place] [address] Care Team Providers Care Orchid Transplanter Name Role Phone Kavita Theodore MD Primary Care Provider [phone] Encounter Details Date Type Department Care Team (Latest Contact Info) Description 12/02/2024 Results Follow-Up [facility] Multispecialty Care - [place] [address] [place] [address] [address] [place] [address] Kavita Theodore MD [address] [facility] 157 [place] [address] C-REACTIVE PROTEIN, CBC W/DIFF AUTOMATED, COMPREHENSIVE METABOLIC PANEL Social History Tobacco Use Types Packs/Day Years [...] Date Recorded Patient Health Questionnaire-2 Score 0 12/01/2024 Comments No Sex and Gender Information Value Date Recorded Sex Assigned at Female 05/15/2024 8:10 AM CDT Legal Sex Female 9:37 AM COSMETIC DENTIST Gender Identity Female 07/17/2024 2:20 PM CDT Sexual Orientation Straight 07/17/2024 2: 20 PM CDT 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 Not on file Not on file documented as of this encounter Plan of Treatment Upcoming Encounters Date Type Department Care Team (Late st Contact Info) Description 01/21/2025 7:20 AM COSMETIC DENTIST [facility] [address] [place] [address] Kavita Theodore MD [address] [place] [address] 07/26/2025 9:30 AM CDT Office Visit [facility] [address] Mark Foss MD [address] [facility] [address] [place] [address] 07/30/2025 8:30 AM CDT Appointment [facility] [address] [address] [address] Baldemar Warren MD 3 [facility] [address] [place] [address] 08/06/2025 10:20 AM CDT Office Visit [facility] Multispecialty Care - [facility] [address] [facility] [address] [place] [address] Jose Haynes DO [address] [facility] [address] [place] [address] 08/12/2025 9:00 AM CDT Office Visit [facility] [address] [facility] [place] [address] Baldemar Warren MD 3 [facility] [address] [place] [address] documented as of this encounter Visit Diagnoses Diagnosis Colitis- Primary Other and unspecified noninfectious gastroenteritis and colitis documented in this encounter Additional Health Concerns Assessment Noted Time PHQ-9 Depression Total Score: 0 12/02/19 25 8:30 AM CDT documented as of this encounter Care Teams Orchid Transplanter Relationship Specialty Start Date End Date Kavita Theodore MD [address] [facility] 157 [place] [address] PCP - General INTERNAL MEDICINE 01/12/22 documented as of this encounter
--- OUTSIDE RECORDS SUMMARY | 2025-01-11 14:41 | XMS_ITS | Clinical Summary ---
Author Organization [facility] Address [address] [place] [address] Care Team Providers Care Credit Control Clerk Name Role Phone Kavita Theodore MD Primary Care Provider [phone] Allergies Active Allergy Reactions Criticality Noted Date [...] (PROBIOTIC OR) Take by mouth daily. Active SMELTER OPERATOR THYROID OR Take 2.58 m by mouth daily. Active NON FORMULARY Take by mouth daily. Ansley Shankar Active testosterone vaginal cream Place vaginally every morning. 35mg/ml 06/04/19 24 Active rosuvastatin (CRESTOR) 10 MG tabletIndications: Aneurysm of ascending aorta without rupture,Dyslipidem ia Take 1 tablet (10 mg total) by mouth nightly at bedtime. at bedtime 90 tablet 1 01/20/20 24 Active Additional Information Patient not taking.Reported on 12/15/2024 estradiol (ESTRACE) 2 MG tablet Take 1 tablet (2 mg total) by mouth daily. Active Magnesium (MAGNESIUM COMPLEX HIGH POTENCY) 250 MG Cap Active escitalopram (LEXAPRO) 5 MG tabletIndications: VALENTÍN (generalized anxiety disorder) Take 1 tablet (5 mg total) by mouth nightly at bedtime. at bedtime 90 tablet 1 07/15/19 25 Active metoprolol succinate ER (TOPROL-XL) 25 MG 24 hr tabletIndications: Aneurysm of ascending aorta without rupture,Essential (primary) hypertension Take 1 tablet (25 mg total) by mouth daily. 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 90 tablet 3 07/15/19 25 026 Active valACYclovir (VALTREX) 1 g tabletIndications: HSV-2 (herpes simplex virus 2) infection Take 1 tablet (1,000 mg total) by mouth daily as needed. 30 tablet 07/15/19 25 Active progesterone (PROMETRIUM) 100 MG capsule Take 6 capsules (600 mg total) by mouth daily. Active ciprofloxacin (CIPRO) 500 MG tablet Take 1 tablet (500 mg total) by mouth every 12 (twelve) hours. for 7 days 11/29/19 25 Active dicyclomine (BENTYL) 10 MG capsule Take 1 capsule (10 mg total) by mouth 2 (two) times daily. 11/29/19 25 Active ondansetron (ZOFRAN-ODT) [address] 1 TABLET ON THE TONGUE AND ALLOW TO DISSOVLE EVERY 8 HOURS NEEDED FOR NAUSEA AND VOMITING 11/29/19 25 Active metroNIDAZOLE (FLAGYL) 500 MG tablet Take 1 tablet (500 mg total) by mouth every 12 (twelve) hours. for 7 days 11/29/19 25 Active Active Problems Problem Noted Date Diagnosed [...] Encounters Date Type Department Care Team Description 12/16/2024 MyChart Message Enc [facility] - [address], [address] [place] [phone] Ciera Ferrell NP Colitis Information from [facility] Visit 12/15/2024 10:20 AM ORDER PICKER/ASSEMBLER Office Visit [facility] - [facility] [address] [facility] [place] [phone] Kavita Theodore MD Schaefer, Jennifer, NP Follow Up (F/u (h/o colitis)) 12/15/2024 Travel 12/02/2024 Results Follow-Up [place] [address] [place] [address] Kavita Theodore MD C-REACTIVE PROTEIN, CBC W/DIFF AUTOMATED, COMPREHENSIVE METABOLIC PANEL 12/01/2024 7:40 AM CDT Office Visit [place] [address] [place] [address] Kavita Theodore MD ER F/U ([facility] went Saturday ); Colitis 12/01/2024 Travel 11/29/2024 MyChart Message Enc [place] [address] [place] [address] Kavita Theodore MD ER visit 11/09/2024 Scan HEALTH INFO SRVCS Scanned, Doc [...] Heart murmur Maternal Grandfather Leukemia Maternal Grandfather CA Maternal Grandfather Arthritis Maternal Grandmother CHF Maternal Grandmother Arthritis Mother Hypertension Mother Valve Disease Mother Vision loss Mother macular degenera tion Heart Attack Paternal Grandfather Stroke Paternal Grandmother Arthritis Sister 1 Asthma Sister 1 Depression Sister 1 Diabetes Sister 1 Mental Health Sister 1 Thyroid Disease Sister 1 Arthritis Sister 2 Defects Sister 2 born with one ki dney Cancer Sister 2 Depression Sister 2 Kidney Disease Sister 2 Mental Health Sister 2 Miscarriages / Stillbirths Sister 2 Single kidney Sister 2 Skin cancer Sister 2 scalp Cancer Sister 3 Cardiac Ablation Sister 3 unclear if PVC or SVT Heart Disease Sister 3 Skin cancer Sister 3 Relation Status Comments Father (Age 76) Maternal Grandfather Maternal Grandmother Mother Alive Paternal Grandfather Paternal Grandmother Alive Sister 1 Alive Sister 2 Alive Sister 3 Alive Social History Tobacco Use Types Packs/Day Years Used Date Smoking Tobacco: Former Cigarettes 1 25 0 03/14/1988 - 03/27/2013 Smokeless Tobacco: Never Tobacco Cessation:Counseling Given: No Comments:Counseled by Dr Theodore Alcohol Use Standard [...] Date Recorded Patient Health Questionnaire-2 Score 0 12/15/2024 Comments No Sex and Gender Information Value Date Recorded Sex Assigned at Female 05/15/2024 8:10 AM CDT Legal Sex Female 9:37 AM ORDER PICKER/ASSEMBLER Gender Identity Female 07/17/2024 2:20 PM CDT Sexual Orientation Straight 07/17/2024 2: 20 PM CDT 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 on file Not on file Last Filed Vital Signs Vital Sign Reading Time Taken Comments Blood Pressure 130/74 12/15/2024 10:23 AM ORDER PICKER/ASSEMBLER Pulse 72 12/15/2024 10:23 AM ORDER PICKER/ASSEMBLER Temperature 37.4 C (99.3 F) 12/15/2024 10:23 AM ORDER PICKER/ASSEMBLER Respiratory Rate 18 12/15/2024 10:23 AM ORDER PICKER/ASSEMBLER Oxygen Saturation 99% 12/15/2024 10:23 AM ORDER PICKER/ASSEMBLER Inhaled Oxygen Concentration - - Weight 73.9 kg (163 lb) 12/15/2024 10:23 AM ORDER PICKER/ASSEMBLER Height 167.6 cm (5' 6) 12/15/2024 10:23 AM ORDER PICKER/ASSEMBLER Body Mass Index 26.31 12/15/2024 10:23 AM ORDER PICKER/ASSEMBLER Plan of Treatment Upcoming Encounters Date Type Department Care Team (Late st Contact Info) Description 01/21/2025 7:20 AM ORDER PICKER/ASSEMBLER Office Visit [facility] Multispecialty Care - [place] [address] [address] [place] [address] Kavita Theodore MD [address] [place] [address] 07/26/2025 9:30 AM CDT Office Visit [facility] [place] [address] Mark Foss MD [address] [place] [address] 07/30/2025 8:30 AM CDT Appointment [facility] [address] [place] [address] Baldemar Warren MD [address] [place] [address] 08/06/2025 10:20 AM CDT Office Visit [facility] Mult[facility]ty Care - [facility] [address] [facility] [address] [place] [address] Fior Daniels DO [address] [facility] [address] [place] [address] 08/12/2025 9:00 AM CDT Office Visit [facility] [facility] [address] [place] [address] Baldemar Warren MD [address] [facility] [address] [place] [address] Health Maintenance Due Date Last Done Comments Cervical Cancer Screening Pap Smear (Age 30 to 64) Every 3 Years 1966 Hepatitis B Vaccines (1 of 3 - 19+ 3-dose series) 1985 COVID-19 Vaccine (2024- season) 2024 11/22/2023, 11/30/2022, 11/25/2021, Additional history exists Annual Physical 01/19/2025 01/20/2024, 06/2022, 01/12/2022 Lung [...] 11/04/2021, 08/16/2021 Hepatitis C Completed 01/17/2022, 01/12/2022 Influenza Adult Completed 11/19/2024, 11/11, 11/28/2021, Additional history exists PHQ-2 (Physician [place]) Completed 12/15/2024 Hepatitis A Vaccines Aged Out No long [...] Procedure Name Priority Date/Time Associated Diagnosis Comments COMPREHENSIVE METABOLIC PANEL Routine 12/01/2024 8:04 AM CDT Colitis CBC W/DIFF AUTOMATED Routine 12/01/2024 8:04 AM CDT Colitis C-REACTIVE PROTEIN Routine 12/01/2024 8: 04 AM CDT Colitis COLLECTION VENOUS BLOOD VENIPUNCTURE Routine 12/01/2024 7:51 AM CDT Colitis MAMMOGRAM GENERIC (SCAN ORDER) 11/09/2024 CT CHEST WO CON Routine 05/15/2024 8:11 AM CDT Lung nodule HEPATITIS C ANTIBODY W/RFX TO HCV RNA Routine 01/17/2022 7:21 AM ORDER PICKER/ASSEMBLER OUTSIDE CYTOPATH CERV/VAG INTERPRET (PAP) 11/01/2021 COLONOSCOPY GENERIC (SCAN ORDER) 06/06/2018 from Last 3 Months or Most Recently Relevant to Health Maintenance Results * (ABNORMAL) COMPREHENSIVE METABOLIC PANEL (12/01/2024 8:04 AM CDT) GLUCOSE 114(H) 65 - 99 mg/dL [place] Comment: Fasting reference interval For someone without known diabetes, a glucose value between 100 and 125 mg/dL is consistent with prediabetes and should be confirmed with a follow-up test. BUN 19 7 - 25 mg/dL [place] CREATININE S/P/B 1.26(H) 0.50 - 1.03 mg/dL [place] GFR ESTIMATE 49(L) > OR = 60 mL/min/1.7 3m2 [place] BUN CREATININE RATIO 15 6 - 22 (calc) [place] SODIUM S/P/B 137 135 - 146 mmol/L [place] POTASSIUM S/P/B 5.3 3.5 - 5.3 mmol/L [place] CHLORIDE S/P/B 101 98 - 110 mmol/L [place] CO2 25 20 - 32 mmol/L [place] CALCIUM S/P/B 10.0 8.6 - 10.4 mg/dL [place] TOTAL PROTEIN S/P/B 7.0 6.1 - 8.1 g/dL [place] ALBUMIN S/P/B 4.2 3.6 - 5.1 g/dL [place] GLOBULIN 2.8 1.9 - 3.7 g/dL (calc) [place] ALBUMIN/GLOBULIN RATIO 1.5 1.0 - 2.5 (calc) [place] BILIRUBIN TOTAL S/P/B 0.5 0.2 - 1.2 mg/dL [facility] [place] ALKALINE PHOSPHATASE S/P/B 46 37 - 153 U/L [place] AST 32 10 - 35 U/L [facility] [place] ALT 58(H) 6 - 29 U/L [facility] [place] 12/01/2024 8:0 4 AM CDT 12/02/2024 3:46 AM CDT Narrative Resulting Agency Comment Performing Organization Information: Site ID: [facility]: [facility] Address: [address] [place] [address] [place] [address] Director: Otilia Rivera Kavita Theodore MD LABORATORY Final Result Performing Organization Address City/[facility] Co de Phone Number [facility] - [place] [facility] [address], [place] * (ABNORMAL) C-REACTIVE PROTEIN (12/01/2024 8:04 AM CDT) Pathologist [facility] C-REACTIVE PROTEIN 11.4(H) <8.0 mg/L [place] 12/01/2024 8:04 AM CDT 12/02/2024 3:46 AM CDT Narrative Resulting Agency Comment Performing Organization Information: Site ID: Name: [facility] Address: [facility] [place] [address] Director: Otilia Rivera Kavita Theodore MD LABORATORY Final Result Performing Organization Address City/[facility] Co de Phone Number [facility] - [place] [facility] [address], [place] * (ABNORMAL) CBC W/DIFF AUTOMATED (12/01/2024 8:04 AM CDT) Pathologist [facility] WBC 5.7 3.8 - 10.8 Thousand/u L [facility] [place] RBC 5.29(H) 3.80 - 5.10 Million/uL [facility] [place] HGB 15.4 11.7 - 15.5 g/dL [place] HCT 49.0(H) 35.0 - 45.0 % [place] MCV 92.6 80.0 - 100.0 fL [place] MCH 29.1 27.0 - 33.0 pg [place] MCHC 31.4(L) 32.0 - 36.0 g/dL [place] Comment: For adults, a slight decrease in the calculated MCHC value (in the range of 30 to 32 g/dL) is most likely not clinically significant; however, it should be interpreted with caution in correlation with other red cell parameters and the patient's clinical condition. RDW 11.9 11.0 - 15.0 % [place] PLT 298 140 - 400 Thousand/u L [place] MPV 11.1 7.5 - 12.5 fL [place] ABS. NEUTROPHILS 3,209 1,500 - 7,800 cells/uL [place] ABS. LYMPHOCYTES 1,328 850 - 3,900 cells/uL [place] ABS. MONOCYTES 912 200 - 950 cells/uL [place] ABS. EOSINOPHILS 188 15 - 500 cells/uL [place] ABS. BASOPHILS 63 0 - 200 cells/uL [place] SEG NEUTROPHILS 56.3 % [place] LYMPHOCYTES 23.3 % [place] MONOCYTES 16.0 % [place] EOSINOPHILS 3.3 % [place] BASOPHILS 1.1 % [place] 12/01/2024 8:04 AM CDT 12/02/2024 3:46 AM CDT Narrative Resulting Agency Comment Performing Organization Information: Site ID: [place] Name: [facility] Address: [address] [address] Director: Otilia Rivera Kavita Theodore MD LABORATORY Final Result [facility] - [place] [facility] [address], [place] * MAMMOGRAM GENERIC (SCAN ORDER) (11/09/2024) Anatomical [...] 12:29 PM Narrative 05/22/2024 12:[address] PM [address]T [address] [address] Exam: CT CHEST WO CON Exam Date/Time: [...] Procedure Note Faheem Chowdary MD - 05/22/[address] [address] Exam: CT CHEST WO CON Exam Date/Time: [...] W/RFX TO HCV RNA (01/17/2022 7:21 AM ORDER PICKER/ASSEMBLER) HEPATITIS C AB NON-REACT LATONIA NON-REACT LATONIA [facility] SIGNAL TO CUTOFF 0.07 <1.00 [facility] Comment: HCV antibody was non-reactive. There is no laboratory evidence of HCV infection. In most cases, no further action is required. However, if recent HCV exposure is suspected, a test for HCV RNA (test code 63721) is suggested. For additional information please refer to http://education.IndigoBoom.Planday/faq/ZOU94z1 (This link is being provided for informational/ educational purposes only.) 01/17/2022 7:21 AM ORDER PICKER/ASSEMBLER 01/17/2022 7:22 AM ORDER PICKER/ASSEMBLER Narrative Resulting Agency Comment Performing Organization Information: Site ID: [place] Name: [facility] Address: [facility] [place] [address] Director: Pavan Balderrama D.O., MPH Kavita Theodore MD LABORATORY Final Result [facility] [place] [place] [address] [facility] [place] [address], [place] * PAP SMEAR WITH HPV (11/01/2021) 11/01/2021 us [facility] Scanned SCANNING Final Resu lt * COLONOSCOPY GENERIC (06/06/2018) 06/06/2018 us [facility] Scanned SCANNING Final Resu lt from Last 3 Months or Most Recently Relevant to Health Maintenance Insurance [employer] Care Teams Credit Control Clerk Relationship Specialty Start Date End Date Kavita Theodore MD [address] [facility] [address] [place] [id number] PCP - General INTERNAL MEDICINE 01/12/22
--- OUTSIDE RECORDS SUMMARY | 2025-01-11 14:41 | XMS_ITS | Encounter Summary ---
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 Not on file [...] st Contact Info) Description 01/21/2025 7:20 AM CLOTH FOLDER MACHINE Office Visit [facility] Multispecialty Care - [place] [address] [address] [place] [address] Kavita Theodore MD [address] [place] [address] [address] [place] [address] 07/26/2025 9:30 AM CDT Office Visit [facility] [place] [address] Mark Foss MD [address] [place] [address] 07/30/2025 8:30 AM CDT Appointment [facility] [address] [place] [address] Baldemar Warren MD [address] [place] [address] 08/06/2025 10:20 AM CDT Office Visit [facility] [address] [place] [address] Jose Haynes DO [address] [place] [address] 08/12/2025 9:00 AM CDT Office Visit [facility] [address] [place] [address] Baldemar Warren MD [address] [place] [address] documented as of this encounter Procedures Procedure [...] Results * VITAMIN D, 25 OH (12/19/2022) Pathologist [facility] VITAMIN D 25 HYDROXY S/P/B 108 12/19/2022 us Default History Genericprovider LABORATORY Final Result * COMPREHENSIVE METABOLIC PANEL (12/19/2022) Pathologist [facility] SODIUM S/P/B 137 GLUCOSE 98 mg/dL AST 25 BUN 28 CREATININE S/P/B 1.0 0.5 - 1.0 CALCIUM S/P/B 9.40 POTASSIUM S/P/B 4.2 CHLORIDE S/P/B 103 ALT 50 GFR ESTIMATE 66 us Default History Genericprovider LABORATORY Final Result * LIPID PANEL (12/19/2022) Pathologist [facility] CHOLESTEROL 104 TRIGLYCERIDES 70 HDL 42 LDL (CALCULATED) 47 NON HDL CHOLESTEROL 62 us Default History Genericprovider LABORATORY Final Result * CBC, MANUAL DIFF (12/19/2022) Pathologist [facility] WBC 6.0 HGB 14.1 HCT 40.4 PLT 267 us Default History Genericprovider LABORATORY Final Result * THYROXINE, FREE (FT4) (12/19/2022) Pathologist [facility] FREE T4 1.5 us Default History Genericprovider LABORATORY Final Result * HEMOGLOBIN, GLYCOSYLATED (12/19/2022) Pathologist [facility] HGB A1C 5.4 % us Default History Genericprovider LABORATORY Final Result * THYROID STIM HORMONE, TSH (12/19/2022) [facility] TSH 0.01 us Default History Genericprovider LABORATORY Final Result * FREE T3 (12/19/2022) [facility] FREE T3 7.9 us Default History Genericprovider LABORATORY Final Result * LIPID PANEL (07/24/2022) [facility] CHOLESTEROL 182 TRIGLYCERIDES 93 HDL 38 LDL (CALCULATED) 125 NON HDL CHOLESTEROL 144 Narrative Resulting Agency Comment us Default History Genericprovider LABORATORY Edited Result - Final documented in this encounter Visit Diagnoses Not on filedocumented in this encounter Care Teams New Patient Escort Relationship Specialty Start Date End Date Kavita Theodore MD [facility] [address] PCP - General INTERNAL MEDICINE 01/12/22 documented as of this encounter
--- OUTSIDE RECORDS SUMMARY | 2025-01-11 14:41 | XMS_ITS | Encounter Summary ---
Author Organization [facility] - [facility] Address [address] [place] [address] Care Team Providers Care Manager Forensic Name Role Phone Kavita Theodore MD Primary Care Provider [phone] Encounter Details Date Type Department Care Team (Late st Contact Info) Description 01/07/2024 [place] Solart Message Enc [facility] Medical Group Multispecialty Care - [place] [address] [place] [address] [address] [place] [address] [place] [address] [place] [address] [place], [place] [id number] Menopause Social History Tobacco Use Types Packs/Day [...] AM CDT Legal Sex Female 9:37 AM FORKLIFT TECHNICIAN Gender Identity Female 07/17/2024 2:20 PM CDT Sexual Orientation Straight 07/17/2024 2: 20 PM CDT 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 Not on file Not on file documented as of this encounter Plan of Treatment Upcoming Encounters Date Type Department Care Team (Late st Contact Info) Description 01/21/2025 7:20 AM FORKLIFT TECHNICIAN Office Visit [facility] Multispecialty Care - [address] [place] [address] Kavita Theodore MD [address] [facility] [address] [place] [address] 07/26/2025 9:30 AM CDT Office Visit [facility] [place] [address] Mark Foss MD [address] [place] [address] 07/30/2025 8:30 AM CDT Appointment [facility] [address] [place] [address] Baldemar Warren MD [address] [place] [address] 08/06/2025 10:20 AM CDT Office Visit [facility]ialty Care [facility] [address] [place] [address] Jose Haynes DO [address] [place] [address] 08/12/2025 9:00 AM CDT Office Visit [facility] [address] [place] [address] Baldemar Warren MD [address] [place] [address] documented as of this encounter Visit Diagnoses Not on filedocumented in this encounter Additional Health Concerns Assessment Noted Time PHQ-9 Depression Total Score: 0 06/28/19 24 2:55 PM CDT documented as of this encounter Care Teams Manager Forensic Relationship Specialty Start Date End Date Kavita Theodore MD [address] [facility] [address] [place] [address] PCP - General INTERNAL MEDICINE 01/12/22 documented as of this encounter
--- OUTSIDE RECORDS SUMMARY | 2025-01-11 14:41 | XMS_ITS | Encounter Summary ---
Author Organization [facility] Address [address] [place] [address] Care Team Providers Care Stamping Die Try Out Worker Name Role Phone Kavita Theodore MD Primary Care Provider [phone] Encounter Details Date Type Department Care Team (Latest Contact Info) Description 08/30/2023 ColonaryConceptst Message Enc [facility] [address] [address] Ryan Lynn MD [address] [place] [phone] medication question Social History Tobacco Use [...] AM CDT Legal Sex Female 9:37 AM TRAIN OPERATIONS MANAGER Gender Identity Female 07/17/2024 2:20 PM CDT Sexual Orientation Straight 07/17/2024 2: 20 PM CDT 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 Not on file Not on file documented as of this encounter Plan of Treatment Upcoming Encounters Date Type Department Care Team (Late st Contact Info) Description 01/21/2025 7:20 AM TRAIN OPERATIONS MANAGER Office Visit [facility] Multispecialty Care - [place] [address] [address] [place] [address] Kavita Theodore MD [address] [facility] [address] [place] [address] 07/26/2025 9:30 AM CDT Office Visit [facility] [place] [address] Mark Foss MD [address] [place] [address] 07/30/2025 8:30 AM CDT Appointment [facility] [address] [place] [address] Baldemar Warren MD [address] [place] [address] 08/06/2025 10:20 AM CDT Office Visit [facility]ialty Care [facility] [address] [place] [address] Jose Haynes DO [address] [place] [address] 08/12/2025 9:00 AM CDT Office Visit [facility] [address] [place] [address] Baldemar Warren MD [address] [place] [address] documented as of this encounter Visit Diagnoses Not on filedocumented in this encounter Additional Health Concerns Assessment Noted Time PHQ-9 Depression Total Score: 0 06/28/19 24 2:55 PM CDT documented as of this encounter Care Teams Stamping Die Try Out Worker Relationship Specialty Start Date End Date Kavita Theodore MD [facility] [address] [place] [address] PCP - General INTERNAL MEDICINE 01/12/22 documented as of this encounter
--- OUTSIDE RECORDS SUMMARY | 2025-01-11 14:41 | XMS_ITS | Encounter Summary ---
Author Organization [facility] - [facility] Address [address] [place] [address] Care Team Providers Care Cofounder Name Role Phone Kavita Theodore MD Primary Care Provider [phone] Encounter Details Date Type Department Care Team (Latest Contact Info) Description 09/17/2022 MyChart Message Enc [facility] Medical Group Multispecialty Care - [place] [address] [facility] [address] [place] [address] Kavita Theodore MD 1188 [facility] 157 [place], [place] [id number] nodule in right lung Social History Tobacco [...] CDT Legal Sex Female 9:37 AM GORE MAKER Gender Identity Female 07/17/2024 2:20 PM CDT Sexual Orientation Straight 07/17/2024 2: 20 PM CDT 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 Not on file Not on file documented as of this encounter Plan of Treatment Upcoming Encounters Date Type Department Care Team (Late st Contact Info) Description 01/21/2025 7:20 AM GORE MAKER Office Visit [facility]ty Care - [address] [place] [address] Kavita Theodore MD [address] [facility] [address] [place] [address] 07/26/2025 9:30 AM CDT Office Visit [facility] [place] [address] Mark Foss MD [address] [place] [address] 07/30/2025 8:30 AM CDT Appointment [address] [address] [place] [address] Baldemar Warren MD [address] [facility] [address] [place] [address] 08/06/2025 10:20 AM CDT Office Visit [facility] [address] [place] [address] Jose Haynes DO [address] [place] [address] 08/12/2025 9:00 AM CDT Office Visit [facility] [address] [place] [address] Baldemar Warren MD [address] [place] [address] documented as of this encounter Visit Diagnoses Not on filedocumented in this encounter Care Teams Cofounder Relationship Specialty Start Date End Date Kavita Theodore MD [address] [facility] 157 [place] [address] PCP - General INTERNAL MEDICINE 01/12/22 documented as of this encounter
--- OUTSIDE RECORDS SUMMARY | 2025-01-11 14:41 | XMS_ITS | Encounter Summary ---
Author Organization [facility] - [facility] Address [address] [place] [address] Care Team Providers Care Lang Path Therapist Name Role Phone Kavita Theodore MD Primary Care Provider Encounter Details Date Type Department Care Team (Late st Contact Info) Description 05/24/2022 MyChart Message Enc [facility] Medical Group Multispecialty Care - [place] 1188 [facility] [address] [place] [address] [place] [address] [place] [address] 157 [place], [place] [id number] Escitalopram Social History Tobacco Use Types Packs/Day [...] AM CDT Legal Sex Female 9:37 AM BOOKKEEPING MACHINE OPERATOR Gender Identity Female 07/17/2024 2:20 [...] st Contact Info) Description 01/21/2025 7:20 AM BOOKKEEPING MACHINE OPERATOR Office Visit [facility] Multispecialty Care - [address] [place] [address] [place] [address] [place] [address] 157 [place] [address] 07/26/2025 9:30 AM CDT Office Visit [facility] [address] Mark Foss MD [address] [place] [address] 07/30/2025 8:30 AM CDT Appointment [facility] [address] [place] [address] Baldemar Warren MD [address] [facility] [address] [place] [address] 08/06/2025 10:20 AM CDT Office Visit [facility] [address] [place] [address] Jose Haynes DO [address] [place] [address] 08/12/2025 9:00 AM CDT Office Visit [facility] [address] [place] [address] Baldemar Warren MD 3 [facility] [address] [place] [address] documented as of this encounter Visit Diagnoses Not on filedocumented in this encounter Care Teams Lang Path Therapist Relationship Specialty Start Date End Date Kavita Theodore MD [address] [facility] [address] [place] [address] PCP - General INTERNAL MEDICINE 01/12/22 documented as of this encounter
--- OUTSIDE RECORDS SUMMARY | 2025-01-11 14:41 | XMS_ITS | Encounter Summary ---
Author Organization [facility] - [facility] Address [facility] [place] [address] Care Team Providers Care Media Relations Associate Name Role Phone Kavita Theodore MD Primary Care Provider [phone] Encounter Details Date Type Department Care Team (Late st Contact Info) Description 01/15/2022 Sakhr Software Message Enc [facility] Medical Group Multispecialty Care - [place] [address] [place] [address] [place] Provider Xray result Social History Tobacco Use [...] AM CDT Legal Sex Female 9:37 AM COLOR WORKER Gender Identity Female 07/17/2024 2:20 PM CDT Sexual Orientation Straight 07/17/2024 2: 20 PM CDT COVID-19 Exposure Response Date Recorded In the last 10 days, have yo u been in contact with someone who was confirmed or suspected to have Coronavirus/COVID-19? No / Unsure 01/12/2022 6:58 AM COLOR WORKER documented as of this encounter Plan of Treatment Upcoming Encounters Date Type Department Care Team (Late st Contact Info) Description 01/21/2025 7:20 AM COLOR WORKER Office Visit [facility] Medical [facility] Multispecialty Care - [place] [address] [address] [place] [address] Kavita Theodore MD [address] [facility] [address] [place] [address] 07/26/2025 9:30 AM CDT Office Visit [facility] [address] [place] [address] [address] [place] [address] Mark Foss MD [address] [place] [address] 07/30/2025 8:30 AM CDT Appointment [address] [address] [place] [address] Baldemar Warren MD [address] [place] [address] 08/06/2025 10:20 AM CDT Office Visit [facility]pecialty Care [facility] [address] [place] [address] Jose Haynes DO [address] [place] [address] 08/12/2025 9:00 AM CDT Office Visit [facility] [address] [place] [address] Baldemar Warren MD [address] [place] [address] documented as of this encounter Visit Diagnoses Not on filedocumented in this encounter Care Teams Media Relations Associate Relationship Specialty Start Date End Date Kavita Theodore MD 1188 [facility] 157 [place] [address] PCP - General INTERNAL MEDICINE 01/12/22 documented as of this encounter
--- OUTSIDE RECORDS SUMMARY | 2025-01-11 14:41 | XMS_ITS | Encounter Summary ---
Author Organization [facility] - [facility] Address [address] [place] [address] Care Team Providers Care Housing Grant Analyst Name Role Phone Kavita Theodore MD Primary Care Provider [phone] Encounter Details Date Type Department Care Team (Latest Contact Info) Description 05/24/2022 MyChart Message Enc [facility] Medical Group Multispecialty Care - [place] [address] [place] [address] 157 [address] [place] [address] Kavita Theodore MD 1188 [facility] 157 [place], [place] [phone] Colonoscopy information/bone density Social History Tobacco Use [...] AM CDT Legal Sex Female 9:37 AM RV SERVICE TECHNICIAN Gender Identity Female 07/17/2024 2:20 PM [...] st Contact Info) Description 01/21/2025 7:20 AM RV SERVICE TECHNICIAN Office Visit [facility] Multispecialty Care - [address] [place] [address] Kavita Theodore MD [address] [place] [address] 157 [place] [address] 07/26/2025 9:30 AM CDT Office Visit [facility] [address] Mark Foss MD [address] [place] [address] 07/30/2025 8:30 AM CDT Appointment [address] [address] [place] [address] Baldemar Warren MD [address] [place] [address] 08/06/2025 10:20 AM CDT Office Visit [facility]ialty Care [facility] [address] [place] [address] Jose Haynes DO [address] [place] [address] 08/12/2025 9:00 AM CDT Office Visit [facility] [address] [place] [address] Baldemar Warren MD 3 [facility] [address] [place] [address] documented as of this encounter Visit Diagnoses Not on filedocumented in this encounter Care Teams Housing Grant Analyst Relationship Specialty Start Date End Date Kavita Theodore MD 1188 [facility] [address] [place] [address] PCP - General INTERNAL MEDICINE 01/12/22 documented as of this encounter
--- OUTSIDE RECORDS SUMMARY | 2025-01-11 14:41 | XMS_ITS | Encounter Summary ---
Author Organization [facility] - [facility] Address [address] [place] [address] Care Team Providers Care Machine Maintenance Servicer Name Role Phone Kavita Theodore MD Primary Care Provider [phone] Encounter Details Date Type Department Care Team (Late st Contact Info) Description 08/02/2022 MyChart Message Enc [facility] Medical Group Multispecialty Care - [place] [address] [place] [address] 157 [address] [place] [address] [place] [address] [place] [address] [address] [place], [place] [phone] Plush Finisher Social History Tobacco Use Types Packs/Day Years [...] AM CDT Legal Sex Female 9:37 AM COOK MANAGER Gender Identity Female 07/17/2024 2:20 PM CDT Sexual Orientation Straight 07/17/2024 2: 20 PM CDT 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 Not on file [...] st Contact Info) Description 01/21/2025 7:20 AM COOK MANAGER Office Visit [facility] Multispecialty Care - [place] [address] [address] [place] [address] Kavita Theodore MD 1188 [facility] 157 [place] [address] 07/26/2025 9:30 AM CDT Office Visit [facility] [place] [address] Mark Foss MD [address] [place] [address] 07/30/2025 8:30 AM CDT Appointment [facility] [address] [facility] [place] [address] Baldemar Warren MD [address] [facility] [address] [place] [address] 08/06/2025 10:20 AM CDT Office Visit [facility] Multispecialty Care - [facility] [address] [facility] [address] [place] [address] Jose Haynes DO [address] [place] [address] 08/12/2025 9:00 AM CDT Office Visit [facility] THREE [facility] [place] [address] Baldemar Warren MD 3 [facility] [address] [place] [address] documented as of this encounter Visit Diagnoses Not on filedocumented in this encounter Care Teams Machine Maintenance Servicer Relationship Specialty Start Date End Date Kavita Theodore MD 1188 [facility] 157 [place] [address] PCP - General INTERNAL MEDICINE 01/12/22 documented as of this encounter
--- OUTSIDE RECORDS SUMMARY | 2025-01-11 14:41 | XMS_ITS | Encounter Summary ---
Author Organization [facility] - [facility] Address [address] [place] [address] Care Team Providers Care Sales Support Advisor Name Role Phone Kavita Theodore MD Primary Care Provider [phone] Encounter Details Date Type Department Care Team (Late st Contact Info) Description 01/31/2023 Cyzonehart Message Enc [facility] Medical Group Multispecialty Care - [place] [address] [place] [address] [address] [place] [address] [place] [address] [place] [address] 157 [place], [place] [phone] Need valtrex Social History Tobacco Use Types [...] AM CDT Legal Sex Female 9:37 AM INCLINED RAILWAY OPERATOR Gender Identity Female 07/17/2024 2:20 PM CDT Sexual Orientation Straight 07/17/2024 2: 20 PM CDT 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 Not on file Not on file documented as of this encounter Plan of Treatment Upcoming Encounters Date Type Department Care Team (Late st Contact Info) Description 01/21/2025 7:20 AM INCLINED RAILWAY OPERATOR Office Visit [facility] Multispecialty Care - [address] [place] [address] Kavita Theodore MD 1188 [facility] [address] [place] [address] 07/26/2025 9:30 AM CDT Office Visit [facility] [place] [address] Mark Foss MD [address] [place] [address] 07/30/2025 8:30 AM CDT Appointment [address] [place] [address] Baldemar Warren MD [address] [facility] [address] [place] [address] 08/06/2025 10:20 AM CDT Office Visit [facility] [address] [place] [address] Jose Haynes DO [address] [place] [address] 08/12/2025 9:00 AM CDT Office Visit [facility] [address] [place] [address] Baldemar Warren MD [address] [place] [address] documented as of this encounter Visit Diagnoses Not on filedocumented in this encounter Additional Health Concerns Assessment Noted Time PHQ-9 Depression Total Score: 0 01/16/20 23 7:42 AM INCLINED RAILWAY OPERATOR documented as of this encounter Care Teams Sales Support Advisor Relationship Specialty Start Date End Date Kavita Theodore MD 1188 [facility] 157 [place] [address] PCP - General INTERNAL MEDICINE 01/12/22 documented as of this encounter
--- OUTSIDE RECORDS SUMMARY | 2025-01-11 14:41 | XMS_ITS | Encounter Summary ---
Author Organization [facility] - [facility] Address [address] [place] [address] Care Team Providers Care Sock Folder Name Role Phone Kavita Theodore MD Primary Care Provider [phone] Encounter Details Date Type Department Care Team (Latest Contact Info) Description 10/24/2022 MyChart Message Enc [facility] Medical Group Multispecialty Care - [place] 1188 [facility] 157 [address] [place] [address] Kavita Theodore MD 1188 [facility] 157 [place], [place] [phone] PET scan. Call to schedule an appointment. 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 on file Not [...] PM CDT Kayla Escobedo MA Active * [place] Suicide Severity Rating Scale (Screener/Recent Self-Report) Question [...] st Contact Info) Description 01/21/2025 7:20 AM NATIONAL BUSINESS DIRECTOR [facility] [address] [place] [address] Kavita Theodore MD [address] [place] [address] 07/26/2025 9:30 AM CDT Office Visit [facility] [address] Mark Foss MD Three [facility] [address] [place] [address] 07/30/2025 8:30 AM CDT Appointment [facility] [address] [facility] [address] Baldemar Warren MD 3 [facility] [address] [place] [address] 08/06/2025 10:20 AM CDT Office Visit [facility] Mult[facility]ialty Care - [facility] [address] [facility] [address] [place] [address] Jose Haynes DO [address] [facility] [address] [place] [address] 08/12/2025 9:00 AM CDT Office Visit [facility] THREE [facility] [place] [address] Baldemar Warren MD 3 [facility] [address] [place] [address] documented as of this encounter Visit Diagnoses Not on filedocumented in this encounter Care Teams Sock Folder Relationship Specialty Start Date End Date Kavita Theodore MD 1188 [facility] [address] [place] [address] PCP - General INTERNAL MEDICINE 01/12/22 documented as of this encounter
--- OUTSIDE RECORDS SUMMARY | 2025-01-11 14:41 | XMS_ITS | Encounter Summary ---
Author Organization [facility] - [facility] Address [address] [place] [address] Care Team Providers Care Venetian Blind Cleaner Name Role Phone Kavita Theodore MD Primary Care Provider [phone] Encounter Details Date Type Department Care Team (Latest Contact Info) Description 07/14/2024 Tailored Republichart Message Enc [facility] Medical Group Multispecialty Care - [place] [address] [place] [address] [address] [place] [address] Kavita Theodore MD 1188 [facility] 157 [place], [place] [phone] Attached labs from 06.17.2024 Social History Tobacco [...] AM CDT Legal Sex Female 9:37 AM SHAKE PACKER Gender Identity Female 07/17/2024 2:20 PM CDT Sexual Orientation Straight 07/17/2024 2: 20 PM CDT 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 on file Not on file documented as of this encounter Plan of Treatment Upcoming Encounters Date Type Department Care Team (Late st Contact Info) Description 01/21/2025 7:20 AM SHAKE PACKER Office Visit [facility] Multispecialty Care - [address] [place] [address] Kavita Theodore MD [address] [place] [address] 07/26/2025 9:30 AM CDT Office Visit [facility] [address] Mark Foss MD Three [facility] [address] [place] [address] 07/30/2025 8:30 AM CDT Appointment [facility] [address] [facility] [address] Baldemar Warren MD [address] [facility] [address] [place] [address] 08/06/2025 10:20 AM CDT Office Visit [facility] Multispecialty Care - [facility] [address] [facility] [address] [place] [address] Jose Haynes DO 3 [facility] [address] [place] [address] 08/12/2025 9:00 AM CDT Office Visit [facility] [address] [facility] [place] [address] Baldemar Warren MD 3 [facility] [address] [place] [address] documented as of this encounter Visit Diagnoses Not on filedocumented in this encounter Additional Health Concerns Assessment Noted Time PHQ-9 Depression Total Score: 0 01/20/20 24 7:59 AM SHAKE PACKER documented as of this encounter Care Teams Venetian Blind Cleaner Relationship Specialty Start Date End Date Kavita Theodore MD [address] [address] PCP - General INTERNAL MEDICINE 01/12/22 documented as of this encounter
--- OUTSIDE RECORDS SUMMARY | 2025-01-11 14:41 | XMS_ITS | Encounter Summary ---
Author Organization [facility] - [facility] Address [address] [place] [address] Care Team Providers Care Vibrating Screed Operator Name Role Phone Kavita Theodore MD Primary Care Provider [phone] Encounter Details Date Type Department Care Team (Latest Contact Info) Description 08/18/2024 Cribspothart Message Enc [facility] Medical Group Multispecialty Care - [facility] [address] [facility] [address] [place] [address] Jose Haynes DO [address] [facility] [address] [place], [place] [phone] Change appointment Social History Tobacco Use Types [...] AM CDT Legal Sex Female 9:37 AM LOW RAW SUGAR CUTTER Gender Identity Female 07/17/2024 2:20 PM CDT Sexual Orientation Straight 07/17/2024 2: 20 PM CDT 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 Not on file Not on file documented as of this encounter Plan of Treatment Upcoming Encounters Date Type Department Care Team (Late st Contact Info) Description 01/21/2025 7:20 AM LOW RAW SUGAR CUTTER Office Visit [facility] [place] [address] [address] [place] [address] Kavita Theodore MD [address] [place] [address] 07/26/2025 9:30 AM CDT Office Visit [facility]-[address] [address] Mark Foss MD Three [facility] [address] [place] [address] 07/30/2025 8:30 AM CDT Appointment [facility] [address] [facility] [place] [address] Baldemar Warren MD 3 [facility] [address] [place] [address] 08/06/2025 10:20 AM CDT Office Visit [facility] Multispecialty [facility] - [facility] [address] [facility] [address] [place] [address] Jose Haynes DO 3 [facility] [address] [place] [address] 08/12/2025 9:00 AM CDT Office Visit [facility] THREE [facility] [address] [place] [address] Baldemar Warren MD 3 [facility] [address] [place] [address] documented as of this encounter Visit Diagnoses Not on filedocumented in this encounter Additional Health Concerns Assessment Noted Time PHQ-9 Depression Total Score: 0 01/20/20 24 7:59 AM LOW RAW SUGAR CUTTER documented as of this encounter Care Teams Vibrating Screed Operator Relationship Specialty Start Date End Date Kavita Theodore MD 1188 [facility] [address] [place] [address] PCP - General INTERNAL MEDICINE 01/12/22 documented as of this encounter
--- OUTSIDE RECORDS SUMMARY | 2025-01-11 14:41 | XMS_ITS | Clinical Summary ---
Author Organization [facility] Address [address] [place] [address] Care Team Providers Care Environmental Research Scientist Name Role Phone Unavailable Primary Care Provider Unavailabl e Source Comments [facility],non-owned Affiliates and Associated Physician Practices is amultiple site organization consisting of ambulatory clinics and hospital sitesin [place], [place], [place] and [place]. This disclosure is being madepursuant to the Care Everywhere program and may not contain all information available regarding this patient. Last updated 17.[facility] [employer] Social History Tobacco Use Types Packs/Day Years Used Date Smoking Tobacco: Never Assessed Comments Unknown Sex and Gender Information Value Date Recorded Sex Assigned at Not on file Legal Sex Female 3:26 PM CERTIFIED ORTHOTIC FITTER Gender Identity Not on file Sexual Orientation [...] of 3 - 19+ 3-dose series) 1985 Cervical Cancer Screening 10/21/1987 PAP SMEAR 10/21/1987 PAP with HPV 1996 PNEUMOCOCCAL VACCINE 50+ (1 of 1 - PCV) 2016 ZOSTER VACCINE (1 of 2) 2016 DEPRESSION SCREENING 02/12/2024 COVID-19 VACCINE (1 - 2024-2 6 season) 2024 INFLUENZA VACCINE (#1) 2024 HIB [...] patient's age to complete this topic Insurance [employer]
--- OUTSIDE RECORDS SUMMARY | 2025-01-11 14:41 | XMS_ITS | Clinical Summary ---
Author Organization [facility] Tayla Quinonez Address [address] [place] [address] Care Team Providers Care Credit Union Manager Name Role Phone Betty Jauregui Primary Care Provider [phone] Allergies Active Allergy Reactions Criticality Noted Date [...] of proximal vein of both lower extremities (CMS/HCC) Take 1 Tablet (5 mg) by mouth [...] 2016 INFLUENZA VACCINE (#1) 2024 Care Teams Credit Union Manager Relationship Specialty Start Date End Date Betty Jauregui ANP [address] [address] PCP - General Nurse Practitioner Adult Health 09/16/19
--- OUTSIDE RECORDS SUMMARY | 2025-01-11 14:41 | XMS_ITS | Encounter Summary ---
Author Organization [facility] Address [address] [place] [address] Care Team Providers Care Gasfitter Name Role Phone Unavailable Primary Care Provider Unavailabl e Encounter Details Date Type Department Care Team (Late st Contact Info) Description 03/17/2024 Lab Requisition [facility] - DermPath Lab [address] [place] [address] Luís Poon MD [facility] DERMATOLOGY [address] [place] [phone] Neoplasm of uncertain behavior of skin Social History Tobacco Use Types Packs/Day Years Used Date Smoking Tobacco: Never Assessed Comments Unknown Sex and Gender Information Value Date Recorded Sex Assigned at Not on file Legal Sex Female 3:26 PM LABORER VINEYARD Gender Identity Not on file Sexual Orientation Not on file documented as of this encounter Plan of Treatment Not on file documented as of this encounter Procedures Procedure Name Priority Date/Time Associated Diagnosis Comments DERMATOPATHOLOGY Routine 03/17/2024 9:01 AM LABORER VINEYARD Neoplasm of uncertain behavior of skin documented in this encounter Results * DERMATOPATHOLOGY (03/17/2024 9:01 AM LABORER VINEYARD) Case Report Dermatopathology Report Case: [id number] Authorizing Provider: Luís Poon MD Collected: 03/17/2024 09:01 AM Ordering Location: [facility] - Received: 03/19/2024 02:00 PM DermPath Lab Pathologist: Jessica Lopez MD Specimen: Skin, right shoulder 2:18 PM LABORER [facility] DERMATOPATHOLOGY LABORATORY Final Diagnosis Specimen A. SKIN, right shoulder: SEBORRHEIC KERATOSIS, IRRITATED AND INFLAMED (L82.0) 2:18 PM [facility] DERMATOPATH[facility]ORAT[facility] at [address] LABORER VINEYARD Clinical History BCC vs Irritated Seborrheic Keratosis 2:18 PM [facility] DERMATOPATH[facility]Y [facility] Gross Description Specimen A: Received is one formalin filled container labeled with the patient's name and designated right shoulder. The specimen consists of a shave biopsy measuring 8x7x2 mm. Jar 0. 2:18 PM [facility] DERMATOPATHOLOGY [facility]ORATORY Microscopic Description Specimen A. SKIN, right shoulder: Sections show acanthosis, papillomatosis, hyperkeratosis, and squamous eddies. There is a lymphohistiocytic infiltrate within the papillary dermis. 2:18 PM [facility] DERMATOPATHOLOGY [facility]ORATORY Disclaimer An external and internal positive and negative controls are appropriate for the histochemical, immunohistochemical and immunofluorescence stain(s) in this case (if any), except where stated explicitly. The performance characteristics of the stain(s) cited in this report were developed and its performance characteristic determined by the Dermatopathology Laboratory at [facility], directed by Dr. Hortencia Robles. These tests need not be, and therefore are not, approved by the [place] Food and Drug Administration. The tests are used for clinical purposes. Billing Codes Specimen Charges Stain Charges 59047 1 2:18 PM [facility] DERMATOPATH[facility] Embedded Images 2:18 PM [facility] D[facility] Pathology/Cytolo gy TISSUE SPECIMEN FROM SKIN / Unknown 03/17/2024 9:01 AM LABORER VINEYARD 03/19/2024 2:00 PM LABORER VINEYARD us Luís Poon MD LAB - PATHOLOGY/CYTOLOGY JONI GÓMEZ Final Result DERMATOPATHOLOGY LABORATORY [facility] - Department of Dermatology [address], [address] [phone] documented in this encounter Visit Diagnoses Diagnosis Neoplasm of uncertain behavior of skin documented in this encounter
--- OUTSIDE RECORDS SUMMARY | 2025-01-11 14:41 | XMS_ITS | Encounter Summary ---
Author Organization [facility] - [facility] Address [address] [place] [address] Care Team Providers Care Research Administrator Name Role Phone Kavita Theodore MD Primary Care Provider [phone] Encounter Details Date Type Department Care Team (Latest Contact Info) Description 01/12/2022 WorldTVhart Message Enc [facility] Medical Group Multispecialty Care - [place] [address] [place] [address] [address] [place] [address] [place] [address] [place] [address] [address] [place], [place] [phone] Date of last colonoscopy Social History Tobacco [...] AM CDT Legal Sex Female 9:37 AM WASHERY BOSS Gender Identity Female 07/17/2024 2:20 PM CDT Sexual Orientation Straight 07/17/2024 2: 20 PM CDT COVID-19 Exposure Response Date Recorded In the last 10 days, have yo u been in contact with someone who was confirmed or suspected to have Coronavirus/COVID-19? No / Unsure 01/12/2022 6:58 AM WASHERY BOSS documented as of this encounter Functional Status * Calculated C-SSRS Risk Score (Lifetime/Recent) Answer Date of Assessment Author Status No Risk Indicated 01/12/2022 8:49 PM WASHERY BOSS Kavita Theodore MD Active * [place] Suicide Severity Rating Scale (Screener/Recent Self-Report) Question Answer Date of Assessment Author Status 1. Wish to be (Past 1 Month) No 01/12/2022 8:49 PM WASHERY BOSS Kavita Theodore MD Active 2. Non-Specific Active Suici brie Thoughts (Past 1 Month) No 01/12/2022 8:49 PM WASHERY BOSS Kavita Theodore MD Active 6. Suicidal Behavior (Lifetime) No 01/12/2022 8:49 PM WASHERY BOSS Kavita Theodore MD Active documented as of this encounter Plan of Treatment Upcoming Encounters Date Type Department Care Team (Late st Contact Info) Description 01/21/2025 7:20 AM WASHERY BOSS Office Visit [facility] Multispecialty Care - [place] [address] [address] [place] [address] Kavita Theodore MD [address] [place] [address] 07/26/2025 9:30 AM CDT Office Visit [facility] [address] Mark Foss MD Three [facility] [address] [place] [address] 07/30/2025 8:30 AM CDT Appointment [place] [place] [place] [address] Baldemar Warren MD 3 [facility] [address] [place] [address] 08/06/2025 10:20 AM CDT Office Visit [facility] Multispecialty Care - [facility] 3 [facility] [address] [place] [address] Jose Haynes DO 3 [facility] [address] [place] [address] 08/12/2025 9:00 AM CDT Office Visit [facility] THREE [facility] [place] [place] [address] Baldemar Warren MD 3 [facility] [address] [place] [address] documented as of this encounter Visit Diagnoses Not on filedocumented in this encounter Care Teams Research Administrator Relationship Specialty Start Date End Date Kavita Theodore MD [address] [facility] [address] [place] [address] PCP - General INTERNAL MEDICINE 01/12/22 documented as of this encounter
--- OUTSIDE RECORDS SUMMARY | 2025-01-11 14:41 | XMS_ITS | Encounter Summary ---
Author Organization [facility] - [facility] Address [address] [place] [address] Care Team Providers Care Furnace Firer Name Role Phone Kavita Theodore MD Primary Care Provider Encounter Details Date Type Department Care Team (Late st Contact Info) Description 01/22/2022 MyChart Message Enc [facility] Medical Group Multispecialty Care - [place] [address] [place] [address] 157 [address] [place] [address] [place] [address] [place] [address] [address] [place], [place] [phone] Labs Social History Tobacco Use Types Packs/Day [...] AM CDT Legal Sex Female 9:37 AM SERVICE ENGINEER Gender Identity Female 07/17/2024 2:20 PM CDT Sexual Orientation Straight 07/17/2024 2: 20 PM CDT COVID-19 Exposure Response Date Recorded In the last 10 days, have yo u been in contact with someone who was confirmed or suspected to have Coronavirus/COVID-19? No / Unsure 01/12/2022 6:58 AM SERVICE ENGINEER documented as of this encounter Plan of Treatment Upcoming Encounters Date Type Department Care Team (Late st Contact Info) Description 01/21/2025 7:20 AM SERVICE ENGINEER Office Visit [facility] Multispecialty Care - [address] [place] [address] Kavita Theodore MD [address] [place] [address] 157 [place] [address] 07/26/2025 9:30 AM CDT Office Visit [facility] [address] Mark Foss MD [address] [place] [address] 07/30/2025 8:30 AM CDT Appointment [place] [place] [place] [address] Baldemar Warren MD [address] [facility] [address] [place] [address] 08/06/2025 10:20 AM CDT Office Visit [facility] Multispecialty Care - [facility] [address] [place] [address] Jose Haynes DO [address] [place] [address] 08/12/2025 9:00 AM CDT Office Visit [facility] [address] [place] [address] Baldemar Warren MD 3 [facility] [address] [place] [address] documented as of this encounter Visit Diagnoses Not on filedocumented in this encounter Care Teams Furnace Firer Relationship Specialty Start Date End Date Kavita Theodore MD [facility] [address] [place] [address] PCP - General INTERNAL MEDICINE 01/12/22 documented as of this encounter
--- OUTSIDE RECORDS SUMMARY | 2025-01-11 14:41 | XMS_ITS | Encounter Summary ---
Author Organization [facility] Address [address] [place] [address] Care Team Providers Care Trauma Surgeon Name Role Phone Kavita Theodore MD Primary Care Provider [phone] Encounter Details Date Type Department Care Team (Latest Contact Info) Description 12/16/[address] 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 [address] [place] [address] Kavita Theodore MD [address] [place] [address] 07/26/2025 9:30 AM CDT Office Visit [facility] [address] Mark Foss MD Three [facility] [address] [place] [address] 07/30/2025 8:30 AM CDT Appointment [facility] [place] [address] Baldemar Warren MD 3 [facility] [address] [place] [address] 08/06/2025 10:20 AM CDT Office Visit [facility] Multispecialty [facility] 3 [facility] [address] [place] [address] Jose Haynes DO 3 [facility] [address] [place] [address] 08/12/2025 9:00 AM CDT Office Visit [facility] THREE [facility] [place] [place] [place] [address] Baldemar Warren MD 3 [facility] [address] [place] [address] documented as of this encounter Visit Diagnoses Not on filedocumented in this encounter Additional Health Concerns Assessment Noted Time PHQ-9 Depression Total Score: 0 12/02/19 25 8:30 AM CDT documented as of this encounter Care Teams Trauma Surgeon Relationship Specialty Start Date End Date Kavita Theodore MD [address] [address] PCP - General INTERNAL MEDICINE 01/12/22 documented as of this encounter
--- OUTSIDE RECORDS SUMMARY | 2025-01-11 14:41 | XMS_ITS | Encounter Summary ---
Author Organization [facility] Address [address] [place] [address] Care Team Providers Care Title Curator Name Role Phone Kavita Theodore MD Primary Care Provider [phone] Encounter Details Date Type Department Care Team (Late st Contact Info) Description 05/24/2022 MyChart Message Enc [facility] Medical Group Multispecialty Care - [place] [address] [facility] [address] [place] [address] [place] [address] [place] [address] 157 [place], [place] [id number] Sleep Study Social History Tobacco Use Types [...] AM CDT Legal Sex Female 9:37 AM EMERGENCY DEPARTMENT MANAGER Gender Identity Female 07/17/2024 2:20 PM [...] st Contact Info) Description 01/21/2025 7:20 AM EMERGENCY DEPARTMENT MANAGER Office Visit [facility] Multispecialty Care - [address] [place] [address] [place] [address] [place] [address] 157 [place] [address] 07/26/2025 9:30 AM CDT Office Visit [facility] [address] Mark Foss MD [address] [place] [address] 07/30/2025 8:30 AM CDT Appointment [facility] [address] [address] Baldemar Warren MD [address] [facility] [address] [place] [address] 08/06/2025 10:20 AM CDT Office Visit [facility] [address] [place] [address] Jose Haynes DO [address] [place] [address] 08/12/2025 9:00 AM CDT Office Visit [facility] [address] [place] [place] [address] Baldemar Warren MD 3 [facility] [address] [place] [address] documented as of this encounter Visit Diagnoses Not on filedocumented in this encounter Care Teams Title Curator Relationship Specialty Start Date End Date Kavita Theodore MD [address] [facility] [address] [place] [address] PCP - General INTERNAL MEDICINE 01/12/22 documented as of this encounter
--- OUTSIDE RECORDS SUMMARY | 2025-01-11 14:41 | XMS_ITS | Encounter Summary ---
Author Organization [facility] - [facility] Address [address] [place] [address] Care Team Providers Care Book Trimmer Name Role Phone Kavita Theodore MD Primary Care Provider [phone] Encounter Details Date Type Department Care Team (Late st Contact Info) Description 07/14/2024 Zilliantt Message Enc [facility] Medical Group Multispecialty Care - [place] [address] [place] [address] 157 [address] [place] [address] [place] [address] [place] [address] 157 [place], [place] [phone] progesterone Social History Tobacco Use Types Packs/Day [...] AM CDT Legal Sex Female 9:37 AM LOOM SETTER FOURDRINIER Gender Identity Female 07/17/2024 2:20 PM CDT Sexual Orientation Straight 07/17/2024 2: 20 PM CDT 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 Not on file Not on file documented as of this encounter Plan of Treatment Upcoming Encounters Date Type Department Care Team (Late st Contact Info) Description 01/21/2025 7:20 AM LOOM SETTER FOURDRINIER Office Visit [facility] Medical Group Multispecialty Care - [address] [place] [address] Kavita Theodore MD [address] [place] [address] 07/26/2025 9:30 AM CDT Office Visit [facility] [address] Mark Foss MD [facility] [address] [place] [address] 07/30/2025 8:30 AM CDT Appointment [facility] [place] [address] Baldemar Warren MD [address] [facility] [address] [facility] [address] [place] [address] 08/06/2025 10:20 AM CDT Office Visit [facility]pecialty Care - [facility] [address] [facility] [address] [place] [address] Jose Haynes DO 3 [facility] [address] [place] [address] 08/12/2025 9:00 AM CDT Office Visit [facility] THREE [facility] [place] [place] [address] Baldemar Warren MD 3 [facility] [address] [place] [address] documented as of this encounter Visit Diagnoses Not on filedocumented in this encounter Additional Health Concerns Assessment Noted Time PHQ-9 Depression Total Score: 0 01/20/20 24 7:59 AM LOOM SETTER FOURDRINIER documented as of this encounter Care Teams Book Trimmer Relationship Specialty Start Date End Date Kavita Theodore MD [address] [address] PCP - General INTERNAL MEDICINE 01/12/22 documented as of this encounter
--- OUTSIDE RECORDS SUMMARY | 2025-01-11 14:41 | XMS_ITS | Encounter Summary ---
Author Organization [facility] - [facility] Address [address] [place] [address] Care Team Providers Care Ux Interaction Designer Name Role Phone Kavita Theodore MD Primary Care Provider [phone] Encounter Details Date Type Department Care Team (Late st Contact Info) Description 01/09/2023 Maker Studiost Message Enc [facility] Medical Group Multispecialty Care - [place] [address] [place] [address] 157 [address] [place] [address] [place] [address] [place] [address] 157 [place], [place] [phone] cold Social History Tobacco Use Types Packs/Day [...] AM CDT Legal Sex Female 9:37 AM RN CLINICAL COORDINATOR Gender Identity Female 07/17/2024 2:20 PM CDT Sexual Orientation Straight 07/17/2024 2: 20 PM CDT 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 CLINICAL COORDINATOR documented in this encounter Plan of Treatment Upcoming Encounters Date Type Department Care Team (Late st Contact Info) Description 01/21/2025 7:20 AM RN CLINICAL COORDINATOR [facility] [address] [place] [address] Kavita Theodore MD [address] [place] [address] 157 [place] [address] 07/26/2025 9:30 AM CDT Office Visit [facility] [place] [address] Mark Foss MD [address] [facility] [address] [place] [address] 07/30/2025 8:30 AM CDT Appointment [place] [address] [place] [address] Baldemar Warren MD 3 [facility] [address] [place] [address] 08/06/2025 10:20 AM CDT Office [facility] [address] [place] [address] Jose Haynes DO 3 [place] [address] [place] [address] 08/12/2025 9:00 AM CDT Office Visit [facility] THREE [facility] [place] [place] [address] Baldemar Warren MD [address] [facility] [address] [place] [address] documented as of this encounter Visit Diagnoses Not on filedocumented in this encounter Care Teams Ux Interaction Designer Relationship Specialty Start Date End Date Kavita Theodore MD [address] [facility] [address] [place] [address] PCP - General INTERNAL MEDICINE 01/12/22 documented as of this encounter
--- OUTSIDE RECORDS SUMMARY | 2025-01-11 14:41 | XMS_ITS | Encounter Summary ---
Author Organization [facility] Address [address] [place] [address] Care Team Providers Care Software Development Advisor Name Role Phone Kavita Theodore MD Primary Care Provider [phone] Encounter Details Date Type Department Care Team (Late st Contact Info) Description 07/15/2023 MyChart Message Enc [facility] Group Multispecialty Care - [place] [address] [place] [address] 157 [address] [place] [address] [place] [address] [place] [address] 157 [place], [place] [phone] Fe labs Social History Tobacco Use Types Packs/Day [...] AM CDT Legal Sex Female 9:37 AM PROFESSOR OF FOREST PLANNING Gender Identity Female 07/17/2024 2:20 PM CDT Sexual Orientation Straight 07/17/2024 2: 20 PM CDT 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 on file Not [...] AM CDT Kayla Escobedo MA Active * [place] Suicide Severity Rating Scale (Screener/Recent Self-Report) Question [...] st Contact Info) Description 01/21/2025 7:20 AM PROFESSOR OF FOREST PLANNING Office Visit [facility] Multispecialty Care - [address] [place] [address] Kavita Theodore MD [address] [place] [address] 157 [place] [address] 07/26/2025 9:30 AM CDT Office Visit [facility] [address] Mark Foss MD [address] [place] [address] 07/30/2025 8:30 AM CDT Appointment [place] [address] Baldemar Warren MD [address] [facility] [address] [place] [address] 08/06/2025 10:20 AM CDT Office Visit [facility] Multispecialty Care - [facility] [address] [place] [address] Jose Haynes DO 3 [facility] [address] [place] [address] 08/12/2025 9:00 AM CDT Office Visit [facility] THREE [facility] [place] [place] [address] Baldemar Warren MD 3 [facility] [address] [place] [address] documented as of this encounter Visit Diagnoses Not on filedocumented in this encounter Additional Health Concerns Assessment Noted Time PHQ-9 Depression Total Score: 0 06/28/19 24 2:55 PM CDT documented as of this encounter Care Teams Software Development Advisor Relationship Specialty Start Date End Date Kavita Theodore MD [address] [facility] 157 [place] [address] PCP - General INTERNAL MEDICINE 01/12/22 documented as of this encounter
--- OUTSIDE RECORDS SUMMARY | 2025-01-11 14:41 | XMS_ITS | Encounter Summary ---
Author Organization [facility] - [facility] Address [address] [place] [address] Care Team Providers Care Power Crane Operator Name Role Phone Kavita Theodore MD Primary Care Provider [phone] Encounter Details Date Type Department Care Team (Late st Contact Info) Description 03/13/2022 MyChart Message Enc [facility] Medical [facility] Multispecialty Care - [place] [address] [facility] 157 [address] [place] [address] [place] [address] [place] [address] 157 [place], [place] [phone] Need Valtrex Social History Tobacco Use Types Packs/Day Years Used Date Smoking Tobacco: Former Cigarettes 1 25 0 03/14/1988 - 03/14/2013 Smokeless Tobacco: Never Comments:Counseled by Dr Zhanna hrerera Alcohol Use Standard Drinks/Week Comments Yes 3.3 (1 standard drink = 0.6 oz p ure alcohol) occ beer PHQ-2 Answer Date Recorded PHQ-2 Score - If the patient scores above 3, please move on to questions 3-9 0 01/12/2022 Comments No Sex and Gender Information Value Date Recorded Sex Assigned at Female 05/15/2024 8:10 AM CDT Legal Sex Female 9:37 AM ENERGY SCHEDULER Gender Identity Female 07/17/2024 2:20 PM CDT Sexual Orientation Straight 07/17/2024 2: 20 PM CDT COVID-19 Exposure Response Date Recorded In the last 10 days, have yo u been in contact with someone who was confirmed or suspected to have Coronavirus/COVID-19? No / Unsure 03/13/2022 12:55 PM ENERGY SCHEDULER documented as of this encounter Plan of Treatment Upcoming Encounters Date Type Department Care Team (Late st Contact Info) Description 01/21/2025 7:20 AM ENERGY SCHEDULER Office Visit [facility] Multispecialty Care - [place] [address] [address] [place] [address] Kavita Theodore MD 118[address] [facility] 157 [place] [address] 07/26/2025 9:30 AM CDT Office Visit [facility] [place] [address] Mark Foss MD Three [facility] [address] [place] [address] 07/30/2025 8:30 AM CDT App[facility]ment [facility] [address] [facility] [address] Baldemar Warren MD 3 [facility] [address] [place] [address] 08/06/2025 10:20 AM CDT Office Visit [facility] Multispecialty Care - [facility] [address] [place] [address] Jose Haynes DO [address] [place] [address] 08/12/2025 9:00 AM CDT Office Visit [facility] THREE [facility] [place] [place] [address] Baldemar Warren MD 3 [facility] [address] [place] [address] documented as of this encounter Visit Diagnoses Not on filedocumented in this encounter Care Teams Power Crane Operator Relationship Specialty Start Date End Date Kavita Theodore MD [address] [facility] 157 [place] [address] PCP - General INTERNAL MEDICINE 01/12/22 documented as of this encounter
--- OUTSIDE RECORDS SUMMARY | 2025-01-11 14:41 | XMS_ITS | Encounter Summary ---
Author Organization [facility] - [facility] Address [address] [place] [address] Care Team Providers Care Watch Dial Maker Name Role Phone Kavita Theodore MD Primary Care Provider [phone] Encounter Details Date Type Department Care Team (Late st Contact Info) Description 11/29/2024 SAS S[employer] Message Enc [facility] Medical Group Multispecialty Care - [place] [address] [place] [address] 157 [address] [place] [address] [place] [address] [place] [address] 157 [place], [place] [phone] ER visit Social History Tobacco Use Types Packs/Day Years [...] AM CDT Legal Sex Female 9:37 AM RESOURCE ROOM SPECIAL EDUCATION TEACHER Gender Identity Female 07/17/2024 2:20 PM CDT Sexual Orientation Straight 07/17/2024 2 :20 PM CDT 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 Question Answer Date of Assessment Author Status Little interest or pleasure in doing things Not at all 12/01/2024 8:30 AM CDT Lucita Skinner MA Act abelino Feeling down, depressed, or hopeless Not at all 12/01/2024 8:30 AM CDT Lucita Skinner MA Active Patient Health Questionnaire-2 Score 0 12/01/2024 8:30 AM CDT Lucita Skinner MA Active * Question Answer Date of Assessment Author Status Trouble falling or staying asleep, or sleeping too much Not at all 12/01/2024 8:30 AM CDT Lucita Skinner MA Active Feeling tired or having little energy Not at all 12/01/2024 8:30 AM CDT Lucita Skinner MA Active Poor appetite or overeating Not at all 12/01/2024 8:30 AM CHUCKYT Lucita Skinner MA Active Feeling bad about yourself - or that you are a failure or have let yourself or your family down Not at all 12/01/2024 8:30 AM CHUCKYT Lucita Skinner MA Active Trouble concentrating on things, such as reading the newspaper or watching television Not at all 12/01/2024 8:30 AM CHUCKYT Lucita Skinner MA Active Moving or speaking so slowly that other people could have noticed? Or the opposite - being so fidgety or restless that you have been moving around a lot more than usual. Not at all 12/01/2024 8:30 AM CHUCKYT Lucita Skinner MA Active Thoughts that you would be better off or hurting yourself in some way Not at all 12/01/2024 8:30 AM CDT Lucita Skinner MA Active Patient Health Questionnaire-9 Score 0 12/01/2024 8:30 AM CDT Lucita Skinner MA Active * If you checked off any problems on this questionnaire so far, Question Answer Date of Assessment Author Status How difficult have these problems made it for you to do your work, take care of things at home, or get along with other people? Not difficult at all 12/01/2024 8:30 AM CDT Lucita Skinner MA Active * Over the last 2 weeks, how often have you been bothered by any of the following problems? Question Answer Date of Assessment Author Status Feeling nervous, anxious, or on edge 0 12/01/2024 8:31 AM CDT Lucita Skinner MA Act abelino Not being able to stop or control worrying 0 12/01/2024 8:31 AM CDT Lucita Skinner MA Ac tive Worrying too much about different things 0 12/01/2024 8:31 AM CDT Lucita Skinner MA Ac tive Trouble relaxing 0 12/01/2024 8:31 AM CDT Lucita Hayes MA Active Being so restless that it is hard to sit still 0 12/01/2024 8:31 AM CDT Lucita Skinner M A Active Becoming easily annoyed or irritable 0 12/01/2024 8:31 AM CDT Lucita Skinner MA Act abelino Feeling afraid as if something awful might happen 0 12/01/2024 8:31 AM CDT Lucita Skinner MA Act abelino VALENTÍN-7 Total Score 0 12/01/2024 8:31 AM CDT Lucita Ward ms, MA Active documented as of this encounter Plan of Treatment Upcoming Encounters Date Type Department Care Team (Late st Contact Info) Description 01/21/2025 7:20 AM RESOURCE ROOM SPECIAL EDUCATION TEACHER Office Visit [facility] Medical Group Multispecialty Care - [place] [address] [address] [place] [address] [place] [address] [place] [address] 07/26/2025 9:30 AM CDT Office Visit [facility] [address] [facility] [address] [place] [address] Mark Foss MD [address] [place] [address] 07/30/2025 8:30 AM CDT Appointment [place] [place] [address] Baldemar Warren MD [address] [facility] [address] [place] [address] 08/06/2025 10:20 AM CDT Office Visit [facility] Medical [facility] Mult[facility]pecialty Care - [facility] [address] [place] [address] Jose Haynes DO [address] [place] [address] 08/12/2025 9:00 AM CDT Office Visit [facility] [address] [place] [address] Baldemar Warren MD [address] [facility] [address] [place] [address] documented as of this encounter Visit Diagnoses Not on filedocumented in this encounter Additional Health Concerns Assessment Noted Time PHQ-9 Depression Total Score: 0 01/20/20 24 7:59 AM RESOURCE ROOM SPECIAL EDUCATION TEACHER documented as of this encounter Care Teams Watch Dial Maker Relationship Specialty Start Date End Date Kavita Theodore MD [address] [facility] [address] [place] [address] PCP - General INTERNAL MEDICINE 12/2/22 documented as of this encounter
--- OUTSIDE RECORDS SUMMARY | 2025-01-11 14:41 | XMS_ITS | Encounter Summary ---
Author Organization [facility] Address [facility] [place] [address] Care Team Providers Care Welding Technician Name Role Phone Kavita Theodore MD Primary Care Provider [phone] Encounter Details Date Type Department Care Team (Latest Contact Info) Description 07/24/2022 Housekeep Message Enc [facility] [address] [place], [place] [id number] Mat Banuelos MD,PHD Updating information Social History [...] AM CDT Legal Sex Female 9:37 AM PARCEL POST OFFICER Gender Identity Female 07/17/2024 2:20 PM CDT Sexual Orientation Straight 07/17/2024 2: 20 PM CDT 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 on file [...] st Contact Info) Description 01/21/2025 7:20 AM PARCEL POST OFFICER [facility] [address] [place] [address] Kavita Theodore MD [address] [place] [address] 157 [place] [address] 07/26/2025 9:30 AM CDT Office Visit [facility] [address] Mark Foss MD Three [facility] [address] [place] [address] 07/30/2025 8:30 AM CDT Appointment [facility] [address] [place] [address] Baldemar Warren MD 3 [facility] [address] [place] [address] 08/06/2025 10:20 AM CDT Office Visit [facility] - [facility] 3 [facility] [address] [place] [address] Jose Haynes DO 3 [facility] [address] [place] [address] 08/12/2025 9:00 AM CDT Office Visit [facility] THREE [facility] [address] [place] [address] Baldemar Warren MD 3 [facility] [address] [place] [address] documented as of this encounter Visit Diagnoses Not on filedocumented in this encounter Care Teams Welding Technician Relationship Specialty Start Date End Date Kavita Theodore MD [address] [facility] [address] [place] [address] PCP - General INTERNAL MEDICINE 01/12/22 documented as of this encounter
--- OUTSIDE RECORDS SUMMARY | 2025-01-11 14:41 | XMS_ITS | Encounter Summary ---
Author Organization [facility] - [facility] Address [address] [place] [address] Care Team Providers Care Insulation Supervisor Name Role Phone Kavita Theodore MD Primary Care Provider Encounter Details Date Type Department Care Team (Latest Contact Info) Description 12/27/[email or web address] 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 on file Not on file documented as of this encounter Plan of Treatment Upcoming Encounters Date Type Department Care Team (Late st Contact Info) Description 01/21/2025 7:20 AM YARD SWITCHER Office Visit [facility] Multispecialty Care - [place] [address] [address] [place] [address] Kavita Theodore MD [facility] [address] [place] [address] 07/26/2025 9:30 AM CDT Office Visit [facility] [place] [address] Mark Foss MD [address] [place] [address] 07/30/2025 8:30 AM CDT Appointment [facility] [address] [place] [address] Baldemar Warren MD [address] [place] [address] 08/06/2025 10:20 AM CDT Office Visit [facility]ialty [facility] [address] [place] [address] Jose Haynes DO [address] [place] [address] 08/12/2025 9:00 AM CDT Office Visit [facility] [address] [place] [address] [place] [address] Baldemar Warren MD [address] [place] [address] documented as of this encounter Visit Diagnoses Not on filedocumented in this encounter Care Teams Insulation Supervisor Relationship Specialty Start Date End Date Kavita Theodore MD 1188 [facility] 157 [place] [address] PCP - General INTERNAL MEDICINE 01/12/22 documented as of this encounter
--- OUTSIDE RECORDS SUMMARY | 2025-01-11 14:41 | XMS_ITS | Encounter Summary ---
Author Organization [facility] - [facility] Address [address] [place] [address] Care Team Providers Care Client Account Representative Name Role Phone Kavita Theodore MD Primary Care Provider [phone] Encounter Details Date Type Department Care Team (Late st Contact Info) Description 04/11/2023 Labrys Biologicst Message Enc [facility] Medical Group Multispecialty Care - [place] [address] [place] [address] 157 [address] [place] [address] [place] [address] [place] [address] 157 [place], [place] [phone] colonoscopy Social History Tobacco Use Types Packs/Day [...] AM CDT Legal Sex Female 9:37 AM R D INTERNSHIP Gender Identity Female 07/17/2024 2:20 PM CDT Sexual Orientation Straight 07/17/2024 2: 20 PM CDT 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 on file Not on file documented as of this encounter Plan of Treatment Upcoming Encounters Date Type Department Care Team (Late st Contact Info) Description 01/21/2025 7:20 AM R D INTERNSHIP Office Visit [facility] Multispecialty Care - [address] [place] [address] Kavita Theodore MD 1188 [facility] 157 [place] [address] 07/26/2025 9:30 AM CDT Office Visit [facility] [place] [address] Mark Foss MD [address] [place] [address] 07/30/2025 8:30 AM CDT Appointment [place] [address] [place] [address] Baldemar Warren MD [address] [place] [address] 08/06/2025 10:20 AM CDT Office Visit [facility]pecialty Care [facility] [address] [place] [address] Jose Haynes DO [address] [place] [address] 08/12/2025 9:00 AM CDT Office Visit [facility] [address] [place] [place] [address] Baldemar Warren MD [address] [place] [address] documented as of this encounter Visit Diagnoses Not on filedocumented in this encounter Additional Health Concerns Assessment Noted Time PHQ-9 Depression Total Score: 0 01/16/20 23 7:42 AM R D INTERNSHIP documented as of this encounter Care Teams Client Account Representative Relationship Specialty Start Date End Date Kavita Theodore MD [address] [facility] [address] [place] [address] PCP - General INTERNAL MEDICINE 01/12/22 documented as of this encounter
--- OUTSIDE RECORDS SUMMARY | 2025-01-11 14:41 | XMS_ITS | Encounter Summary ---
Author Organization [facility] - [facility] Address [address] [place] [address] Care Team Providers Care Fabrics And Material Cutter Name Role Phone Kavita Theodore MD Primary Care Provider [phone] Encounter Details Date Type Department Care Team (Late st Contact Info) Description 03/21/2022 MyChart Message Enc [facility] Medical Group Multispecialty Care - [place] 118[address] [facility] 157 [address] [place] [address] Kavita Theodore MD [address] [facility] [address] [place], [place] [phone] CT scan results Social History Tobacco Use [...] AM CDT Legal Sex Female 9:37 AM CMO Gender Identity Female 07/17/2024 2:20 PM CDT Sexual Orientation Straight 07/17/2024 2: 20 PM CDT COVID-19 Exposure Response Date Recorded In the last 10 days, have yo u been in contact with someone who was confirmed or suspected to have Coronavirus/COVID-19? No / Unsure 03/20/2022 3:10 PM CMO documented as of this encounter Plan of Treatment Upcoming Encounters Date Type Department Care Team (Late st Contact Info) Description 01/21/2025 7:20 AM CMO Office Visit [facility] Multispecialty Care - [place] [address] [address] [place] [address] Kavita Theodore MD [address] [facility] 157 [place] [address] 07/26/2025 9:30 AM CDT Office Visit [facility] [place] [address] Mark Foss MD [address] [facility] [address] [place] [address] 07/30/2025 8:30 AM CDT Appointment [facility] [address] [facility] [place] [address] Baldemar Warren MD [address] [facility] [address] [place] [address] 08/06/2025 10:20 AM CDT Office Visit [facility] Multispecialty Care - [facility] [address] [facility] [address] [place] [address] Jose Haynes DO [address] [place] [address] 08/12/2025 9:00 AM CDT Office Visit [facility] THREE [facility] [address] [place] [address] Baldemar Warren MD 3 [facility] [address] [place] [address] documented as of this encounter Visit Diagnoses Not on filedocumented in this encounter Care Teams Fabrics And Material Cutter Relationship Specialty Start Date End Date Kavita Theodore MD [address] [facility] 157 [place] [address] PCP - General INTERNAL MEDICINE 01/12/22 documented as of this encounter
--- OUTSIDE RECORDS SUMMARY | 2025-01-11 14:41 | XMS_ITS | Encounter Summary ---
Author Organization [facility] Address [address] [place] [address] Care Team Providers Care Equipment Operator Wage Hand Name Role Phone Kavita Theodore MD Primary Care Provider [phone] Encounter Details Date Type Department Care Team (Latest Contact Info) Description 10/24/2022 MyChart Message Enc [facility] Group Multispecialty Care - [place] [address] [place] [address] 157 [address] [place] [address] Kavita Theodore MD 1188 [facility] 157 [place], [place] [id number] Lipad panel from 10.16.[address] scan/Echocardiogram [...] AM CDT Legal Sex Female 9:37 AM CARTOGRAPHIC ENGINEER Gender Identity Female 07/17/2024 2:20 PM CDT Sexual Orientation Straight 07/17/2024 2: 20 PM CDT 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 on 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 Not [...] PM CDT Kayla Escobedo MA Active * [place] Suicide Severity Rating Scale (Screener/Recent Self-Report) Question [...] st Contact Info) Description 01/21/2025 7:20 AM CARTOGRAPHIC ENGINEER [facility] [address] [place] [address] Kavita Theodore MD [address] [place] [address] 07/26/2025 9:30 AM CDT Office Visit [facility] [address] Mark Foss MD Three [facility], [address] [place] [address] 07/30/2025 8:30 AM CDT Appointment [facility] CT [address] [facility] [place] [address] Baldemar Warren MD 3 [facility] [address] [place] [address] 08/06/2025 10:20 AM CDT Office [facility] Multispecialty [facility] 3 [facility] [address] [place] [address] Jose Haynes DO 3 [facility] [address] [place] [address] 08/12/2025 9:00 AM CDT Office Visit [facility] [facility] [place] [address] [place] [address] Baldemar Warren MD 3 [facility] [address] [place] [address] documented as of this encounter Visit Diagnoses Not on filedocumented in this encounter Care Teams Equipment Operator Wage Hand Relationship Specialty Start Date End Date Kavita Theodore MD 1188 [facility] [address] [place] [address] PCP - General INTERNAL MEDICINE 01/12/22 documented as of this encounter
--- OUTSIDE RECORDS SUMMARY | 2025-01-11 14:41 | XMS_ITS | Encounter Summary ---
Author Organization [facility] - [facility] Address [address] [place] [address] Care Team Providers Care Wheelchair Rental Clerk Name Role Phone Kavita Theodore MD Primary Care Provider [phone] Encounter Details Date Type Department Care Team (Late st Contact Info) Description 10/23/2022 MyChart Message Enc [facility] Group Multispecialty Care - [place] [address] [place] [address] 157 [address] [place] [address] [place] [address] [place] [address] 157 [place], [place] [id number] PET scan Social History Tobacco Use Types [...] AM CDT Legal Sex Female 9:37 AM REFRIGERATION SYSTEM INSTALLER Gender Identity Female 07/17/2024 2:20 PM CDT Sexual Orientation Straight 07/17/2024 2: 20 PM CDT 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 [...] PM CDT Kayla Escobedo MA Active * [place] Suicide Severity Rating Scale (Screener/Recent Self-Report) Question [...] st Contact Info) Description 01/21/2025 7:20 AM REFRIGERATION SYSTEM INSTALLER Office Visit [facility]ty Care - [address] [place] [address] Kavita Theodore MD [address] [place] [address] 157 [place] [address] 07/26/2025 9:30 AM CDT Office Visit [facility] [address] Mark Foss MD Three [facility] [address] [place] [address] 07/30/2025 8:30 AM CDT Appointment [place] [address] [place] [address] Baldemar Warren MD 3 [facility] [address] [place] [address] 08/06/2025 10:20 AM CDT Office Visit [facility] - [facility] [address] [place] [address] Jose Haynes DO 3 [facility] [address] [place] [address] 08/12/2025 9:00 AM CDT Office Visit [facility] THREE [facility] [address] [place] [address] Baldemar Warren MD 3 [facility] [address] [place] [address] documented as of this encounter Visit Diagnoses Not on filedocumented in this encounter Care Teams Wheelchair Rental Clerk Relationship Specialty Start Date End Date Kavita Theodore MD [address]8 [facility] [address] [place] [address] PCP - General INTERNAL MEDICINE 01/12/22 documented as of this encounter
== END 2025-01-11 13:35 | disposition home or self-care (01) ==
LOC: ANHFOHIMG 13:35
PROVIDERS: PCP Internal Medicine; Visit Provider Nurse Practitioner Obstetrics & Gynecology
DX: N63.12 Unspecified lump in the right breast, upper inner quadrant (principal)
CPT/HCPCS: 76642